=== PATIENT | female | born 1965 | race Caucasian/White ===

== ENCOUNTER 2016-12-14 15:34 | Inpatient (IN) ==
[2016-12-14] MEDS ORDERED: HYDROmorphone 2 MG/ML SYRINGE IV PRN (16:06)
[2016-12-14] MEDS ORDERED: ONDANSETRON 4 MG/2 ML VIAL IV PRN (16:06)
[2016-12-14] MEDS ORDERED: PROMETHAZINE 25 MG TABLET PO PRN (16:06)
[2016-12-14] MEDS ORDERED: VANCOMYCIN 1,000 MG in 0.9 % SODIUM CHLORIDE 250 ML IV SCH (16:15)
--- NOTE | 2016-12-14 16:18 | General Surg History&Physical ---
History of Present Illness Patient information: Note initiated : 12/14/16 at 4:17 pm Service Date, if different from initiated Date: [] Patient: Gentry Cornejo a 51 y/o F admitted on for post op infection. Chief Complaint: [] HPI: Ms. Cornejo is a 51 year old F who is status post repair of an upper abdominal incision on 03 December 2016. She had a large defect that was closed with a 10 x 15 cm mesh graft. She did well until 4 days ago when she started having pain in the incision and noted that it was reddened and that she had more drainage. When the pain became extremely severe she presented to the office where it was noted that she had severe cellulitis of the abdominal wall with some serous drainage and swelling. She is admitted for emergency CT and IV antibiotics until we can get culture results. It is not known at this time whether or not she will need reoperation. Review of Systems - Constitutional chills, fever(s), headache(s), malaise - EENT Nose, mouth and throat: headache(s), no dizziness, no vertigo - Cardiovascular no chest pain with activity, no diaphoresis, no dyspnea on exertion, no irregular heart rhythm, no palpatations, no syncope - Respiratory no cough, no dyspnea on exertion, no wheezing - Gastrointestinal abdominal pain, heartburn, nausea, vomiting, no change in bowel habits, no constipation, no diarrhea, no dyspepsia, no loose stools - Genitourinary Genitourinary: no dysuria, no flank pain, no urinary frequency, no urinary urgency - Musculoskeletal arthralgias, back pain, stiffness - Integumentary erythema, pruritus, swelling, wounds - Neurological headache(s), no abnormal gait, no confusion, no dizziness, no syncope, no vertigo - Psychiatric abnormal sleep pattern, anxiety, no confusion, no depression - Endocrine no change in body appearance, no excessive sweating - Hematologic/Lymphatic no easy bleeding, no easy bruising, no lymphadenopathy - Allergic/Immunologic no tongue swelling, no throat swelling, no uticaria, no wheezing, no lip swelling Past History Past medical history: chronic asthma Bipolar disorder Chronic back pain Past surgical history: tubal ligation Incisional hernia repair Past family history: history of colon cancer Past social history: employed Every day smoker Occasional alcohol use Denies substance abus Medications and Allergies Home Medications Medication Instructions Recorded Confirmed Type Baclofen 20 mg PO BID 05/17/16 08/08/17 History estradiol 2 mg tablet 2 mg PO QDAY 10/27/16 12/14/16 History furosemide 40 mg tablet 40 mg PO PRN PRN 10/27/16 12/14/16 History gabapentin 300 mg capsule 900 mg PO TID 10/27/16 12/14/16 History hydroxyzine HCl 25 mg tablet 25 mg PO QID PRN tab 10/27/16 12/14/16 History oxyCODONE HCL/ACETAMINOPHEN 1 tab PO Q4H PRN #60 tab 12/04/16 12/14/16 Rx [Endocet 10-325 mg Tablet] Allergies Allergy/AdvReac Type Severity Reaction Status Date / Time Iodinated Contrast- Oral and Allergy Severe Swelling Verified 12/14/16 15:04 IV Dye [Iodinated Contrast Media - IV Dye] Penicillins Allergy Hives Verified 12/14/16 15:04 Exam - General physical appearance well developed, well nourished, moderate distress, moderate pain - Eyes PERRL, normal ocular movement - ENT normal pinna, normal nares, normal mucosa, no hearing loss, no congestion, dentures - Head Head exam IM: Present: atraumatic, normocephalic - Neck no masses, no bruits, trachea midline, no lymphadectomy, no venous distension - Cardiovascular Cardiovascular exam IM: Present: normal rate and rhythm, RRR, +S1, +S2. Absent : JVD - Respiratory normal expansion, normal respiratory effort, clear to percussion, clear to auscultation - Abdomen Abdomen: Present: soft, tender, bowel sounds, distended (mmildly distended abdomen with upper midline incision with extensive cellulitis and swelling and small amount of serous drainage;; most of the alison have pulled out due to the swelling) Hernia: Present: none - Genitourinary Present: normal external genitalia - Integumentary Present: no rash, no growths, no abnormal pigmentation - Neurologic Present: normal coordination, normal sensation - Musculoskeletal Present: normal gait, normal posture - Psychiatric Present: oriented to time, oriented to person, oriented to place, speech is normal, memory intact, other (mildly anxious) Assessment and Plan (1) Cellulitis of abdominal wall Status: Acute
[2016-12-14 16:52] LABS: Mean Cell Volume 82.5 fL (80.0-100.0); Mean Corpuscular HGB Conc 34.3 g/dL (31.0-36.0); Mean Corpuscular Hemoglobin 28.3 pg (26.0-34.0); Platelet Count 357 K/mcL (140-440); RBC 4.82 M/mcL (4.00-5.20); Red Cell Distribution Width 12.9 % (11.5-14.5)
[2016-12-14 17:15] LABS: ALT/SGPT 20 U/l (0-40); Albumin 3.7 gm/dL (3.2-5.2); Alkaline Phosphatase 84 U/L (39-117); Bilirubin,Direct < 0.2 mg/dL (0.0-0.3); Blood Urea Nitrogen 10 mg/dl (6-20); Gamma Glutamyl Transpeptidase 19 U/L (5-36); Magnesium 1.8 mg/dL (1.6-2.5); Uric Acid 5.2 mg/dL (2.5-8.0)
[2016-12-14] MEDS ORDERED: VANCOMYCIN PER PHARMACY IV SCH (17:15)
[2016-12-14] MEDS: VANCOMYCIN 1,500 MG in 0.9 % SODIUM CHLORIDE 500 ML IV SCH (17:33)
[2016-12-14] MEDS: 0.9 % SODIUM CHLORIDE 1,000 ML IV SCH (17:33)
[2016-12-14 17:34] LABS: Lymphocytes % 14 % (15-49); Monocytes % (Manual) 8 % (1-12); Platelet Estimate NORMAL (NORMAL); RBC Morphology NORMAL (NORMAL); Segmented Neutrophils % 78 % (38-78)
[2016-12-14] MEDS: oxyCODONE HCL 5 MG TABLET PO PRN (19:06)
[2016-12-14] MEDS: 0.9 % SODIUM CHLORIDE 10 ML SYRINGE IV SCH (20:32)
[2016-12-14] MEDS: DOCUSATE SODIUM 100 MG CAPSULE PO SCH (20:32)
[2016-12-14] MEDS: ACETAMINOPHEN 325 MG TABLET PO PRN (23:15)
[2016-12-14] MEDS: ZOLPIDEM 5 MG TABLET PO PRN (23:47)
[2016-12-15] MEDS: oxyCODONE HCL 5 MG TABLET PO PRN ×4 (04:19→20:42)
[2016-12-15] MEDS: VANCOMYCIN 1,500 MG in 0.9 % SODIUM CHLORIDE 500 ML IV SCH ×2 (05:26→17:55)
[2016-12-15] MEDS: ACETAMINOPHEN 325 MG TABLET PO PRN (05:31)
[2016-12-15] MEDS: 0.9 % SODIUM CHLORIDE 10 ML SYRINGE IV SCH ×3 (05:41→20:42)
[2016-12-15] MEDS: 0.9 % SODIUM CHLORIDE 1,000 ML IV SCH ×3 (07:10→17:46)
[2016-12-15 08:20] LABS: Basophils # (Auto) 0.1 K/mcL (0.0-0.3); Basophils % (Auto) 0.5 % (0.0-2.0); Eosinophils # (Auto) 0.4 K/mcL (0.0-0.7); Eosinophils % (Auto) 1.7 % (0.0-7.0); Granulocytes % (Auto) 77.8 % (38.0-78.0); Lymphocytes % (Auto) 13.9 % (15.5-49.0); Mean Cell Volume 82.9 fL (80.0-100.0); Mean Corpuscular HGB Conc 33.9 g/dL (31.0-36.0); Mean Corpuscular Hemoglobin 28.1 pg (26.0-34.0); Monocytes # (Auto) 1.3 K/mcL (0.1-0.9); Monocytes % (Auto) 6.1 % (1.0-12.0); Platelet Count 304 K/mcL (140-440); RBC 4.22 M/mcL (4.00-5.20); Red Cell Distribution Width 12.6 % (11.5-14.5)
[2016-12-15] MEDS: ENOXAPARIN 40 MG/0.4 ML SYRINGE SQ SCH (08:24)
[2016-12-15] MEDS: DOCUSATE SODIUM 100 MG CAPSULE PO SCH ×2 (08:24→20:42)
[2016-12-15 08:42] LABS: ALT/SGPT 17 U/l (0-40); Albumin/Globulin Ratio 0.9 (1.0-2.3); Alkaline Phosphatase 73 U/L (39-117); Bilirubin,Direct < 0.2 mg/dL (0.0-0.3); Blood Urea Nitrogen 7 mg/dl (6-20); Gamma Glutamyl Transpeptidase 18 U/L (5-36); Magnesium 1.9 mg/dL (1.6-2.5); Uric Acid 4.4 mg/dL (2.5-8.0)
--- NOTE | 2016-12-15 11:01 | Cat Scan Report ---
CLINICAL INFORMATION: Hernia surgery roughly 10 days prior mid abdominal pain COMPARISON: Preoperative abdomen and pelvic CT - 10/19/2016 TECHNIQUE: 2.5 mm helical slices were obtained from the mid heart through the subtrochanteric regions. Following reconstruction, 2.5 mm sagittal, coronal and axial reformatted images were processed and reviewed at bone, lung and soft tissue windows. FINDINGS: Lung bases show no abnormality - no effusion. Visualized heart is grossly normal. Images through the abdomen show the noncontrasted gallbladder and bile ducts, liver, spleen, pancreas and aorta to be unremarkable. Both kidneys are normal in size, position and figuration. Three small nonobstructing stones in the calyces of left kidney, ranging up to 7 mm in the superior pole, again noted. Images should the pelvis show hysterectomy/oophorectomy changes . The urinary bladder is normal. The periumbilical hernia has been successfully reduced and there is now mesh in the periumbilical region of the anterior abdominal wall. Just deep to the mesh, in the anterior central mesenteric cavity, there is a 8.7 x 4 cm thin-walled fluid collection. Small amount of fluid projects through a small (9 mm) defect in the mesh (image 90) There is moderate amount of residual edema adjacent to the surgical incision the anterior abdominal wall - as expected. IMPRESSION: 8.7 x 4 cm fluid collection in the anterior mesenteric cavity adjacent to the surgical mesh following hernia repair. This could represent a seroma, hematoma or abscess. Consider CT-guided drainage if the patient is symptomatic. Small nonobstructing stones in the calyces of the left kidney - ranging up to 7 mm. 3.3 cm benign adenoma left adrenal gland and 2 cm benign adenoma in the right adrenal gland is stable since a 07/15/[address] Small right inguinal hernia containing mesenteric fat and the tip of the appendix - stable Interpreted and Authenticated by: Gunnar Cabrera 12/15/16
--- NOTE | 2016-12-15 12:44 | General Surgery Progress Note ---
Subjective Patient reports: feels better, pain is less, tolerating a regular diet, flatus, bowel movement, fever Narrative: Note initiated : 12/15/16 at 12:42 pm Service Date, if different from initiated Date: [] Patient: Gentry Cornejo 51 y/o F admitted on 12/14/16 for Post Op Infection/ Cellulitis of Abdominal Wall. Chief Complaint: [Patient is stable. She did have low-grade fever last night in the 99 range. Her discomfort is better. She had some serous drainage. The wound was probed and in the subcutaneous fat some purulent drainage was encountered cultures of this were taken and sent for C&S. The area of cellulitis has started to recede. Dressing changes were done and will make decision as to whether or not the wound needs to be fully open after the cultures are completed.] Objective Temp Pulse Resp BP Pulse Ox 97.6 F 80 20 99/67 94 12/15/16 12:00 12/15/16 04:00 12/15/16 12:00 12/15/16 12:00 12/15/16 12:00 - Additional Data Intake & Output - Last 24 hours: Intake & Output 12/13/16 12/14/16 12/15/16 12/16/16 05:59 05:59 05:59 05:59 Intake Total 1640 / 1640 2150 / 2150 Output Total 775 / 775 Balance 1640 / 1640 1375 / 1375 Weight 282 lb 8 oz 282 lb 8 oz - General physical appearance well developed, moderate distress, moderate pain - Eyes PERRL - ENT no congestion - Neck no venous distension - Respiratory clear to auscultation - Cardiovascular Cardiovascular exam: Present: normal rate and rhythm, RRR, +S1, +S2. Absent: JVD - Abdomen soft, tender (Abdomen is nondistended; the incision is improved but is still significantly erythematous. Modest amount of seropurulent drainage noted and cultures were taken) - Integumentary no rash, no growths, no abnormal pigmentation - Neurologic normal coordination, normal sensation - Musculoskeletal normal gait, normal posture - Psychiatric oriented to time, oriented to person, oriented to place, speech is normal, memory intact - Labs 12/15/16 07:40 12/15/16 07:40 Diabetes panel 12/14/16 12/15/16 Range/Units 16:20 07:40 Sodium 137 137 (133-145) mmol/L Potassium 3.8 4.2 (3.3-5.1) mmol/L Chloride 95 L 99 (96-108) mmol/L Carbon Dioxide 27 26 (22-30) mmol/L BUN 10 7 (6-20) mg/dl Creatinine 0.6 0.5 L (0.6-1.1) mg/dl Glucose 93 121 H (70-105) mg/dL Calcium 8.9 8.5 L (8.6-10.4) mg/dl AST 14 12 (0-37) U/l ALT 20 17 (0-40) U/l Alkaline Phosphatase 84 73 (39-117) U/L Total Protein 7.5 6.4 (5.9-8.4) gm/dL Albumin 3.7 3.0 L (3.2-5.2) gm/dL Triglycerides 138 86 (<150) mg/dl Calcium panel 12/14/16 12/15/16 Range/Units 16:20 07:40 Calcium 8.9 8.5 L (8.6-10.4) mg/dl Phosphorus 3.0 2.9 (2.7-4.5) mg/dL Albumin 3.7 3.0 L (3.2-5.2) gm/dL Pituitary panel 12/14/16 12/15/16 Range/Units 16:20 07:40 Sodium 137 137 (133-145) mmol/L Potassium 3.8 4.2 (3.3-5.1) mmol/L Chloride 95 L 99 (96-108) mmol/L Carbon Dioxide 27 26 (22-30) mmol/L BUN 10 7 (6-20) mg/dl Creatinine 0.6 0.5 L (0.6-1.1) mg/dl Glucose 93 121 H (70-105) mg/dL Calcium 8.9 8.5 L (8.6-10.4) mg/dl Adrenal panel 12/14/16 12/15/16 Range/Units 16:20 07:40 Sodium 137 137 (133-145) mmol/L Potassium 3.8 4.2 (3.3-5.1) mmol/L Chloride 95 L 99 (96-108) mmol/L Carbon Dioxide 27 26 (22-30) mmol/L BUN 10 7 (6-20) mg/dl Creatinine 0.6 0.5 L (0.6-1.1) mg/dl Glucose 93 121 H (70-105) mg/dL Calcium 8.9 8.5 L (8.6-10.4) mg/dl Total Bilirubin 0.4 0.4 (0.0-1.0) mg/dL AST 14 12 (0-37) U/l ALT 20 17 (0-40) U/l Alkaline Phosphatase 84 73 (39-117) U/L Total Protein 7.5 6.4 (5.9-8.4) gm/dL Albumin 3.7 3.0 L (3.2-5.2) gm/dL Assessment and Plan (1) Cellulitis of abdominal wall Status: Acute Assessment and plan: Cellulitis of abdominal wall with subcutaneous abscess to be further evaluated Current Visit: Yes - Time Spent With Patient Total time spent is greater than 50% in coordination of care (as documented) at patient's floor/unit and/or counseling patient:
[2016-12-15] MEDS ORDERED: ALBUTEROL SULFATE 1 PUFF INHALER IH PRN (12:55)
[2016-12-15] MEDS ORDERED: BECLOMETHASONE DIPROPIONATE 40MCG INHALER INH PRN (12:55)
[2016-12-15] MEDS ORDERED: BACLOFEN 10 MG TABLET PO PRN (15:00)
[2016-12-15] MEDS: GABAPENTIN 300 MG CAPSULE PO SCH ×2 (15:05→20:42)
[2016-12-16] MEDS: oxyCODONE HCL 5 MG TABLET PO PRN ×3 (00:36→21:56)
[2016-12-16] MEDS: 0.9 % SODIUM CHLORIDE 1,000 ML IV SCH ×3 (02:28→21:54)
[2016-12-16] MEDS: 0.9 % SODIUM CHLORIDE 10 ML SYRINGE IV SCH ×3 (05:23→22:41)
[2016-12-16] MEDS: VANCOMYCIN 1,500 MG in 0.9 % SODIUM CHLORIDE 500 ML IV SCH ×2 (05:24→17:55)
[2016-12-16 07:09] LABS: Basophils # (Auto) 0.1 K/mcL (0.0-0.3); Basophils % (Auto) 0.9 % (0.0-2.0); Eosinophils # (Auto) 0.4 K/mcL (0.0-0.7); Eosinophils % (Auto) 2.5 % (0.0-7.0); Granulocytes % (Auto) 70.8 % (38.0-78.0); Lymphocytes # (Auto) 2.6 K/mcL (1.5-4.8); Lymphocytes % (Auto) 17.6 % (15.5-49.0); Mean Cell Volume 83.1 fL (80.0-100.0); Mean Corpuscular HGB Conc 33.8 g/dL (31.0-36.0); Mean Corpuscular Hemoglobin 28.1 pg (26.0-34.0); Monocytes # (Auto) 1.2 K/mcL (0.1-0.9); Monocytes % (Auto) 8.2 % (1.0-12.0); Platelet Count 284 K/mcL (140-440); RBC 3.76 M/mcL (4.00-5.20); Red Cell Distribution Width 12.6 % (11.5-14.5)
[2016-12-16 07:18] LABS: ALT/SGPT 20 U/l (0-40); Albumin/Globulin Ratio 0.9 (1.0-2.3); Alkaline Phosphatase 76 U/L (39-117); Bilirubin,Direct < 0.2 mg/dL (0.0-0.3); Blood Urea Nitrogen 7 mg/dl (6-20); Gamma Glutamyl Transpeptidase 17 U/L (5-36); Magnesium 1.9 mg/dL (1.6-2.5); Uric Acid 3.9 mg/dL (2.5-8.0)
[2016-12-16] MEDS: GABAPENTIN 300 MG CAPSULE PO SCH ×3 (08:43→20:51)
[2016-12-16] MEDS: DOCUSATE SODIUM 100 MG CAPSULE PO SCH ×2 (08:44→20:51)
[2016-12-16] MEDS: ESTRADIOL 1 MG TABLET PO SCH (08:44)
[2016-12-16] MEDS: ENOXAPARIN 40 MG/0.4 ML SYRINGE SQ SCH (08:45)
--- NOTE | 2016-12-16 14:46 | General Surgery Progress Note ---
Subjective Patient reports: feels better, pain is less, afebrile Narrative: Note initiated : 12/16/16 at 2:44 pm Service Date, if different from initiated Date: [] Patient: Gentry Cornejo 51 y/o F admitted on 12/14/16 for Post Op Infection/ Cellulitis of Abdominal Wall. Chief Complaint: [Patient feels better. She has less pain with movement. There is decreased drainage in the cellulitis is beginning to regress. Cultures are growing out Staphylococcus aureus however sensitivities are not available.] Objective Temp Pulse Resp BP Pulse Ox 98.4 F 75 18 101/65 97 12/16/16 11:36 12/16/16 03:05 12/16/16 11:36 12/16/16 11:36 12/16/16 11:36 - Additional Data Intake & Output - Last 24 hours: Intake & Output 12/14/16 12/15/16 12/16/16 12/17/16 05:59 05:59 05:59 05:59 Intake Total 1640 / 1640 6100 / 6100 Output Total 2024 / 2024 350 / 350 Balance 1640 / 1640 4075 / 4075 -350 / -350 Weight 282 lb 8 oz 285 lb - General physical appearance well developed, well nourished, no distress - Eyes PERRL - ENT no congestion - Neck no venous distension - Respiratory normal respiratory effort, clear to auscultation - Cardiovascular Cardiovascular exam: Present: normal rate and rhythm, RRR, +S1, +S2. Absent: JVD - Abdomen tender (Abdomen is tender along the operative incision but the cellulitis and induration is significantly improved. Drainage is also significantly improved) - Integumentary no rash, no growths, no abnormal pigmentation - Neurologic normal coordination, normal sensation - Musculoskeletal normal gait, normal posture - Psychiatric oriented to time, oriented to person, oriented to place, speech is normal, memory intact - Labs 12/16/16 05:48 12/16/16 05:48 Diabetes panel 12/16/16 Range/Units 05:48 Sodium 139 (133-145) mmol/L Potassium 3.9 (3.3-5.1) mmol/L Chloride 101 (96-108) mmol/L Carbon Dioxide 27 (22-30) mmol/L BUN 7 (6-20) mg/dl Creatinine 0.5 L (0.6-1.1) mg/dl Glucose 95 (70-105) mg/dL Calcium 8.2 L (8.6-10.4) mg/dl AST 16 (0-37) U/l ALT 20 (0-40) U/l Alkaline Phosphatase 76 (39-117) U/L Total Protein 6.3 (5.9-8.4) gm/dL Albumin 3.0 L (3.2-5.2) gm/dL Triglycerides 74 (<150) mg/dl Calcium panel 12/16/16 Range/Units 05:48 Calcium 8.2 L (8.6-10.4) mg/dl Phosphorus 3.1 (2.7-4.5) mg/dL Albumin 3.0 L (3.2-5.2) gm/dL Pituitary panel 12/16/16 Range/Units 05:48 Sodium 139 (133-145) mmol/L Potassium 3.9 (3.3-5.1) mmol/L Chloride 101 (96-108) mmol/L Carbon Dioxide 27 (22-30) mmol/L BUN 7 (6-20) mg/dl Creatinine 0.5 L (0.6-1.1) mg/dl Glucose 95 (70-105) mg/dL Calcium 8.2 L (8.6-10.4) mg/dl Adrenal panel 12/16/16 Range/Units 05:48 Sodium 139 (133-145) mmol/L Potassium 3.9 (3.3-5.1) mmol/L Chloride 101 (96-108) mmol/L Carbon Dioxide 27 (22-30) mmol/L BUN 7 (6-20) mg/dl Creatinine 0.5 L (0.6-1.1) mg/dl Glucose 95 (70-105) mg/dL Calcium 8.2 L (8.6-10.4) mg/dl Total Bilirubin 0.3 (0.0-1.0) mg/dL AST 16 (0-37) U/l ALT 20 (0-40) U/l Alkaline Phosphatase 76 (39-117) U/L Total Protein 6.3 (5.9-8.4) gm/dL Albumin 3.0 L (3.2-5.2) gm/dL Assessment and Plan (1) Cellulitis of abdominal wall Status: Acute Assessment and plan: Cellulitis of abdominal wall with subcutaneous abscess ; clinically much improved. We will make decision about follow-up care after the sensitivities are available tomorrow. If she has MRSA will open the wound and place wound VAC and treat with long-term antibiotics. If it is MSSA will continue on antibiotics orally and allow her to go home with follow-up CT in 1 week. Current Visit: Yes - Time Spent With Patient Total time spent is greater than 50% in coordination of care (as documented) at patient's floor/unit and/or counseling patient:
[2016-12-16] MEDS: ZOLPIDEM 5 MG TABLET PO PRN (21:57)
[2016-12-17 06:01] LABS: Basophils # (Auto) 0.1 K/mcL (0.0-0.3); Basophils % (Auto) 0.8 % (0.0-2.0); Eosinophils # (Auto) 0.4 K/mcL (0.0-0.7); Eosinophils % (Auto) 3.4 % (0.0-7.0); Granulocytes % (Auto) 62.3 % (38.0-78.0); Lymphocytes # (Auto) 2.7 K/mcL (1.5-4.8); Lymphocytes % (Auto) 24.4 % (15.5-49.0); Mean Corpuscular HGB Conc 32.8 g/dL (31.0-36.0); Mean Corpuscular Hemoglobin 27.6 pg (26.0-34.0); Monocytes % (Auto) 9.1 % (1.0-12.0); Platelet Count 294 K/mcL (140-440); RBC 3.78 M/mcL (4.00-5.20); Red Cell Distribution Width 12.8 % (11.5-14.5)
[2016-12-17] MEDS: VANCOMYCIN 1,500 MG in 0.9 % SODIUM CHLORIDE 500 ML IV SCH ×2 (06:08→20:37)
[2016-12-17] MEDS: 0.9 % SODIUM CHLORIDE 10 ML SYRINGE IV SCH ×3 (06:09→20:37)
[2016-12-17 06:28] LABS: ALT/SGPT 26 U/l (0-40); Albumin/Globulin Ratio 0.9 (1.0-2.3); Alkaline Phosphatase 72 U/L (39-117); Bilirubin,Direct < 0.2 mg/dL (0.0-0.3); Blood Urea Nitrogen 6 mg/dl (6-20); Gamma Glutamyl Transpeptidase 20 U/L (5-36); Uric Acid 3.6 mg/dL (2.5-8.0)
[2016-12-17] MEDS: ESTRADIOL 1 MG TABLET PO SCH (08:41)
[2016-12-17] MEDS: GABAPENTIN 300 MG CAPSULE PO SCH ×3 (08:42→20:36)
[2016-12-17] MEDS: DOCUSATE SODIUM 100 MG CAPSULE PO SCH ×2 (08:43→20:36)
--- NOTE | 2016-12-17 12:05 | General Surgery Progress Note ---
Subjective Patient reports: feels better, pain is less, tolerating a regular diet, flatus, bowel movement, afebrile Narrative: Note initiated : 12/17/16 at 12:03 pm Service Date, if different from initiated Date: [] Patient: Gentry Cornejo 51 y/o F admitted on 12/14/16 for Post Op Infection/ Cellulitis of Abdominal Wall. Chief Complaint: [Patient is progressing nicely. She has less pain and she has been afebrile. She has less serous drainage with minimal purulence noted. The cellulitis of her abdominal wall is significantly improved. The induration around her incision is markedly reduced. Identification fluid in the bacteria from her wound shows MRSA. It is sensitive to Septra, gentamicin, vancomycin, Zyvox, doxycycline. I will try to get Zyvox tablets for 14 days and then treat her with Septra long-term for 2 weeks. If not available then she may need IV vancomycin long-term however must monitor her renal function closely.] Objective Temp Pulse Resp BP Pulse Ox 97.1 F 57 L 18 106/63 95 12/17/16 04:00 12/17/16 04:00 12/17/16 04:00 12/17/16 04:00 12/17/16 04:00 - Additional Data Intake & Output - Last 24 hours: Intake & Output 12/15/16 12/16/16 12/17/16 12/18/16 05:59 05:59 05:59 05:59 Intake Total 1640 / 1640 6100 / 6100 2560 / 2560 Output Total 2024 / 2024 1500 / 1500 Balance 1640 / 1640 4075 / 4075 1060 / 1060 Weight 282 lb 8 oz 285 lb 289 lb - General physical appearance moderate pain - Eyes PERRL - ENT no congestion - Neck no venous distension - Respiratory clear to auscultation - Cardiovascular Cardiovascular exam: Present: normal rate and rhythm, RRR, +S1, +S2. Absent: JVD - Abdomen tender (Mild tenderness around her incision otherwise her abdominal exam is benign; there is small amount of drainage which is clear and serous on her dressing) - Integumentary no rash, no growths, no abnormal pigmentation - Neurologic normal coordination, normal sensation - Musculoskeletal normal gait - Psychiatric oriented to time, oriented to person, oriented to place, speech is normal, memory intact - Labs 12/17/16 04:38 08/11/17 04:38 Diabetes panel 12/17/16 Range/Units 04:38 Sodium 141 (133-145) mmol/L Potassium 4.2 (3.3-5.1) mmol/L Chloride 104 (96-108) mmol/L Carbon Dioxide 25 (22-30) mmol/L BUN 6 (6-20) mg/dl Creatinine 0.4 L (0.6-1.1) mg/dl Glucose 93 (70-105) mg/dL Calcium 8.4 L (8.6-10.4) mg/dl AST 18 (0-37) U/l ALT 26 (0-40) U/l Alkaline Phosphatase 72 (39-117) U/L Total Protein 6.3 (5.9-8.4) gm/dL Albumin 3.0 L (3.2-5.2) gm/dL Triglycerides 70 (<150) mg/dl Calcium panel 12/17/16 Range/Units 04:38 Calcium 8.4 L (8.6-10.4) mg/dl Phosphorus 3.7 (2.7-4.5) mg/dL Albumin 3.0 L (3.2-5.2) gm/dL Pituitary panel 12/17/16 Range/Units 04:38 Sodium 141 (133-145) mmol/L Potassium 4.2 (3.3-5.1) mmol/L Chloride 104 (96-108) mmol/L Carbon Dioxide 25 (22-30) mmol/L BUN 6 (6-20) mg/dl Creatinine 0.4 L (0.6-1.1) mg/dl Glucose 93 (70-105) mg/dL Calcium 8.4 L (8.6-10.4) mg/dl Adrenal panel 12/17/16 Range/Units 04:38 Sodium 141 (133-145) mmol/L Potassium 4.2 (3.3-5.1) mmol/L Chloride 104 (96-108) mmol/L Carbon Dioxide 25 (22-30) mmol/L BUN 6 (6-20) mg/dl Creatinine 0.4 L (0.6-1.1) mg/dl Glucose 93 (70-105) mg/dL Calcium 8.4 L (8.6-10.4) mg/dl Total Bilirubin 0.2 (0.0-1.0) mg/dL AST 18 (0-37) U/l ALT 26 (0-40) U/l Alkaline Phosphatase 72 (39-117) U/L Total Protein 6.3 (5.9-8.4) gm/dL Albumin 3.0 L (3.2-5.2) gm/dL Assessment and Plan (1) Cellulitis of abdominal wall Status: Acute Assessment and plan: Cellulitis of abdominal wall with subcutaneous abscess ; clinically much improved. Delay operative therapy since she has made such a rapid response Try to get Zyvox for 2 weeks and then treat for another 2 weeks with Septra in order to salvage the mesh Current Visit: Yes - Time Spent With Patient Total time spent is greater than 50% in coordination of care (as documented) at patient's floor/unit and/or counseling patient:
[2016-12-17] MEDS: 0.9 % SODIUM CHLORIDE 1,000 ML IV SCH ×3 (12:49→22:48)
[2016-12-17] MEDS: oxyCODONE HCL 5 MG TABLET PO PRN ×2 (15:25→20:36)
[2016-12-17] MEDS: ZOLPIDEM 5 MG TABLET PO PRN (20:37)
[2016-12-18] MEDS: oxyCODONE HCL 5 MG TABLET PO PRN ×2 (03:16→07:08)
[2016-12-18] MEDS: 0.9 % SODIUM CHLORIDE 10 ML SYRINGE IV SCH (04:17)
[2016-12-18 06:18] LABS: Basophils # (Auto) 0 K/mcL (0.0-0.3); Basophils % (Auto) 0.5 % (0.0-2.0); Eosinophils # (Auto) 0.4 K/mcL (0.0-0.7); Granulocytes % (Auto) 61.4 % (38.0-78.0); Lymphocytes # (Auto) 2.3 K/mcL (1.5-4.8); Lymphocytes % (Auto) 23.9 % (15.5-49.0); Mean Cell Volume 85.2 fL (80.0-100.0); Mean Corpuscular Hemoglobin 28.1 pg (26.0-34.0); Monocytes % (Auto) 10.2 % (1.0-12.0); Platelet Count 311 K/mcL (140-440); RBC 3.88 M/mcL (4.00-5.20); Red Cell Distribution Width 13.8 % (11.5-14.5)
[2016-12-18] MEDS: ACETAMINOPHEN 325 MG TABLET PO PRN (07:09)
[2016-12-18] MEDS: ESTRADIOL 1 MG TABLET PO SCH (07:43)
[2016-12-18] MEDS: GABAPENTIN 300 MG CAPSULE PO SCH (07:43)
[2016-12-18] MEDS: DOCUSATE SODIUM 100 MG CAPSULE PO SCH (07:43)
[2016-12-18] MEDS: VANCOMYCIN 1,500 MG in 0.9 % SODIUM CHLORIDE 500 ML IV SCH (09:46)
--- NOTE | 2016-12-18 09:53 | Discharge Summary ---
Providers - Providers Patient information: Note initiated : 12/18/16 at 9:52 am Service Date, if different from initiated Date: [] Patient: Gentry Cornejo 51 y/o F admitted on 12/14/16 for Post Op Infection/ Cellulitis of Abdominal Wall. Chief Complaint: [] Date of admission: 12/14/16 Discharge date: 12/18/16 Attending physician: Cody Haji Hospitalization Hospital course: 51-year-old female who presented on 14 December with cellulitis of her abdominal wall status post incisional hernia repair. She was admitted and was noted to have low-grade fever with leukocytosis. Cultures grew out MRSA. She has been treated with vancomycin and her white count has returned to normal. She has had mostly serous drainage over the past 48 hours. The cellulitis has significantly resolved. She is now ready for discharge home. She will do dressing changes at home and will be followed up in the office weekly. CT of the abdomen will be done and 1 week to determine the status of the seroma surrounding the graft. She will be treated with Zyvox for 15 days and then switch to Cleocin for 15 days if she is showing progress. She is discharged in stable condition. Discharge diagnosis: abdominal wall infection due to MRSA Secondary discharge diagnosis: Bipolar disorder asthma h/o incisional hernia repair Reason for admission: post operative wound infection Pertinent studies/significant findings: C.T. of abdomen and pelvis Complications: none Exam Temp Pulse Resp BP Pulse Ox 98.0 F 73 16 122/81 96 12/18/16 07:08 12/18/16 03:19 12/18/16 07:08 12/18/16 07:08 12/18/16 07:08 - General physical appearance well developed, well nourished, no distress - Eyes PERRL, normal ocular movement - ENT normal pinna, normal nares, normal mucosa, no hearing loss, no congestion - Head Head exam IM: Present: atraumatic, normocephalic - Neck no masses, no bruits, trachea midline, no lymphadectomy, no venous distension - Cardiovascular Cardiovascular exam IM: Present: normal rate and rhythm - Respiratory normal expansion, normal respiratory effort, clear to percussion, clear to auscultation - Abdomen Abdomen: Present: soft, tender, bowel sounds (tender abdomen along incision with moderate cellulitis and induration ;small amount of serous fluid drainage) Hernia: Present: none - Integumentary Present: no rash, no growths, no abnormal pigmentation - Neurologic Present: normal coordination, normal sensation - Musculoskeletal Present: normal gait, normal posture - Psychiatric Present: oriented to time, oriented to person, oriented to place, speech is normal, memory intact Discharge Plan - Patient/Caregiver Discharge Instructions Discharge Summary: 51-year-old female who was 10 days status post incisional hernia repair with mesh. She presented to the office with an inflamed draining incision with severe cellulitis. She was admitted and was found to have leukocytosis and low- grade temperature elevation. The incision was partially opened on the floor and a large amount of serous drainage was obtained. Cultures grew out MRSA. She is now stable and is discharged home on Zyvox for 15 days after which she will receive Cleocin for 15 more days. The plan is to try to salvage the mesh graft. Most of the infection appears to be supra fascial. It is not known if the seroma surrounding the graft is infected. Activity: increase activity as tolerated Diet: Regular Diet Additional Instructions: Resume home diet as tolerated Increase activity as tolerated Follow up with Nora Joiner. Contact the office on Wednesday 12/20 to schedule. [phone] Return to ER for shortness of breath, unable to go to the bathroom, nausea and/ or vomiting, fever, chills, signs of infection, swelling, redness, excess bleeding Prescriptions: Linezolid [Zyvox] 600 mg PO Q12 #30 tablet oxyCODONE HCL [Roxicodone] 5 mg PO Q4HP PRN #60 tablet PRN Reason: Pain - Follow up Plan Follow up with: Cody Haji MD [Physician] - 01/03/17 8:00 am Disposition: Home, Self-Care Prognosis: Good Rehab Potential: Good I certify that the patient requires SNF services.: No Overall status at discharge: patient is not back to baseline Pending Studies Resuscitation Status Full Code Diet Regular Diet Start TueDec 17 Lunch Acetaminophen (Tylenol) 650 mg PO Q6HP PRN PRN Reason: PAIN/FEVER > 101 Last Admin: 12/18/16 07:09 Dose: 650 mg Admin: 12/15/16 05:31 Dose: 650 mg Admin: 12/14/16 23:15 Dose: 650 mg Docusate Sodium (Colace) 100 mg PO BID [facility] Last Admin: 12/18/16 07:43 Dose: 100 mg Admin: 12/17/16 20:36 Dose: 100 mg Admin: 12/17/16 08:43 Dose: Admin: 12/16/16 20:51 Dose: 100 mg Admin: 12/16/16 08:44 Dose: 100 mg Admin: 12/15/16 20:42 Dose: 100 mg Admin: 12/15/16 08:24 Dose: 100 mg Admin: 12/14/16 20:32 Dose: 100 mg Estradiol (Estrace) 2 mg PO DAILY [facility] Last Admin: 12/18/16 07:43 Dose: 2 mg Admin: 12/17/16 08:41 Dose: 2 mg Admin: 12/16/16 08:44 Dose: 2 mg Gabapentin (Neurontin) 300 mg PO TID [facility] Last Admin: 12/18/16 07:43 Dose: 300 mg Admin: 12/17/16 20:36 Dose: 300 mg Admin: 12/17/16 16:04 Dose: 300 mg Admin: 12/17/16 08:42 Dose: 300 mg Admin: 12/16/16 20:51 Dose: 300 mg Admin: 12/16/16 14:46 Dose: 300 mg Admin: 12/16/16 08:43 Dose: 300 mg Admin: 12/15/16 20:42 Dose: 300 mg Admin: 12/15/16 15:05 Dose: 300 mg Sodium Chloride (Sodium Chloride 0.9%) 1,000 mls @ 75 mls/hr IV .[id number] [facility] Last Admin: 12/17/16 22:48 Dose: Not Given Admin: 12/17/16 17:20 Dose: 75 mls/hr Admin: 12/17/16 12:49 Dose: Not Given Infusion: 12/17/16 11:14 Dose: 75 mls/hr Admin: 12/16/16 21:54 Dose: 75 mls/hr Infusion: 12/16/16 15:48 Dose: 75 mls/hr Admin: 12/16/16 10:46 Dose: Not Given Admin: 12/16/16 02:28 Dose: 75 mls/hr Infusion: 12/16/16 01:03 Dose: 75 mls/hr Admin: 12/15/16 17:46 Dose: Not Given Admin: 12/15/16 11:43 Dose: 75 mls/hr Admin: 12/15/16 07:10 Dose: Not Given Infusion: 12/15/16 06:53 Dose: 75 mls/hr Admin: 12/14/16 17:33 Dose: 75 mls/hr Vancomycin HCl 1,500 mg/ (Sodium Chloride) 500 mls @ 333.3 mls/hr IV Q12H NATALIA Last Admin: 12/18/16 09:46 Dose: 333.3 mls/hr Infusion: 12/17/16 22:08 Dose: 333.3 mls/hr Admin: 12/17/16 20:37 Dose: 333.3 mls/hr Infusion: 12/17/16 07:39 Dose: 333.3 mls/hr Admin: 12/17/16 06:08 Dose: 333.3 mls/hr Infusion: 12/16/16 19:30 Dose: 333.3 mls/hr Admin: 12/16/16 17:55 Dose: 333.3 mls/hr Infusion: 12/16/16 06:55 Dose: 333.3 mls/hr Admin: 12/16/16 05:24 Dose: 333.3 mls/hr Infusion: 12/15/16 19:26 Dose: 333.3 mls/hr Admin: 12/15/16 17:55 Dose: 333.3 mls/hr Infusion: 12/15/16 06:57 Dose: 333.3 mls/hr Admin: 12/15/16 05:26 Dose: 333.3 mls/hr Infusion: 12/14/16 19:04 Dose: 333.3 mls/hr Admin: 12/14/16 17:33 Dose: 333.3 mls/hr Ondansetron HCl (Zofran) 4 mg IV Q6HP PRN PRN Reason: Nausea And Vomiting Last Admin: 12/18/16 07:55 Dose: 4 mg Oxycodone HCl (Roxicodone) 5 mg PO Q4HP PRN PRN Reason: Pain Last Admin: 12/18/16 07:08 Dose: 5 mg Admin: 12/18/16 03:16 Dose: 5 mg Admin: 12/17/16 20:36 Dose: 5 mg Admin: 12/17/16 15:25 Dose: 5 mg Admin: 12/16/16 21:56 Dose: 5 mg Admin: 12/16/16 14:47 Dose: 5 mg Admin: 12/16/16 00:36 Dose: 5 mg Admin: 12/15/16 20:42 Dose: 5 mg Admin: 12/15/16 15:05 Dose: 5 mg Admin: 12/15/16 10:43 Dose: 5 mg Admin: 12/15/16 04:19 Dose: 5 mg Admin: 12/14/16 19:06 Dose: 5 mg Sodium Chloride (Saline Flush) 10 ml IV Q8 NATALIA Last Admin: 12/18/16 04:17 Dose: Not Given Admin: 12/17/16 20:37 Dose: Not Given Admin: 12/17/16 16:04 Dose: 10 ml Admin: 12/17/16 06:09 Dose: Not Given Admin: 12/16/16 22:41 Dose: Not Given Admin: 12/16/16 14:14 Dose: Not Given Admin: 12/16/16 05:23 Dose: Not Given Admin: 12/15/16 20:42 Dose: Not Given Admin: 12/15/16 13:41 Dose: 10 ml Admin: 12/15/16 05:41 Dose: Not Given Admin: 12/14/16 20:32 Dose: Not Given Zolpidem Tartrate (Ambien) 5 mg PO HSP PRN PRN Reason: Insomnia Last Admin: 12/17/16 20:37 Dose: 5 mg Admin: 12/16/16 21:57 Dose: 5 mg Admin: 12/14/16 23:47 Dose: 5 mg Shift Summary 12/18/16 03:03 Shift Summary by Daily Richardson Patient alert and oriented x4. Up ad naun to bathroom. Vital signs stable on room air. NS running at 75ml/hr to right AC. Receiving IV ABO. Dressing change done to abdomen as ordered. Midline abdominal incision has some redness and swelling w/moderate amount of serous drainage. PO Roxicodone and ice pack has managed pain. Patient will discharge this morning if stable and will be sent home on oral ABO. Initialized on 12/18/16 03:03 - END OF NOTE
== END 2016-12-18 12:33 | disposition home or self-care (01) | DRG 863 ==
LOC: MEDSUR → OBSVTOIN 16:15 → MEDSUR 18:16
PROVIDERS: ADMIT Family Medicine Adult Medicine; ATTEND Family Medicine Adult Medicine

== ENCOUNTER 2018-09-03 05:07 | Inpatient (IN) ==
[2018-09-03] MEDS ORDERED: IOPAMIDOL 100 ML BOTTLE IV ONE (05:08)
[2018-09-03] MEDS ORDERED: 0.9 % SODIUM CHLORIDE 1,000 ML IV SCH (05:45)
[2018-09-03] MEDS ORDERED: 0.9 % SODIUM CHLORIDE 1,000 ML IV ONE ×2 (06:03→07:22)
[2018-09-03] MEDS ORDERED: VANCOMYCIN 1,000 MG in 0.9 % SODIUM CHLORIDE 250 ML IV ONE ×2 (06:46→08:30)
[2018-09-03] MEDS ORDERED: LEVOFLOXACIN 500 MG/100 ML BAG IV ONE (06:46)
[2018-09-03 06:55] LABS: Appearance,Urine CLEAR; Bilirubin,Urine NEG (NEG); Color,Urine YELLOW; Glucose,Urine (UA) NEGATIVE (NEG); Leukocyte Esterase,Urine NEG /uL (NEG); Protein,Urine NEG (NEG); Urine Blood NEG mg/dL (<0.03); Urobilinogen,Urine NEG (NEG)
[2018-09-03 06:55] LABS: Basophils # (Auto) 0 K/mcL (0.0-0.3); Basophils % (Auto) 0.3 % (0.0-2.0); Eosinophils # (Auto) 0.3 K/mcL (0.0-0.7); Eosinophils % (Auto) 3.2 % (0.0-7.0); Granulocytes % (Auto) 67.1 % (38.0-78.0); Lymphocytes # (Auto) 2.1 K/mcL (1.5-4.8); Lymphocytes % (Auto) 21.4 % (15.5-49.0); Mean Cell Volume 83.1 fL (80.0-100.0); Mean Corpuscular HGB Conc 32.1 g/dL (31.0-36.0); Monocytes # (Auto) 0.8 K/mcL (0.1-0.9); Platelet Count 332 K/mcL (140-440); RBC 4.58 M/mcL (4.00-5.20); Red Cell Distribution Width 14.8 % (11.5-14.5)
[2018-09-03 07:06] LABS: Amphetamine Screen,Urine NONE DETECTED (NONDETECTED); Benzodiazepines Screen,Urine NONE DETECTED (NONDETECTED); Cocaine Screen,Urine NONE DETECTED (NONDETECTED); Opiate Screen,Urine NONE DETECTED (NONDETECTED); Oxycodone, Urine Screen NONE DETECTED (NONDETECTED)
[2018-09-03 07:13] LABS: ALT/SGPT 19 U/l (0-40); Albumin 3.5 gm/dL (3.2-5.2); Alkaline Phosphatase 75 U/L (39-117); Blood Urea Nitrogen 16 mg/dl (6-20)
--- NOTE | 2018-09-03 07:13 | Emergency Department Note ---
Altered Mental Status HPI - General Chief Complaint: Altered Mental Status Stated Complaint: Unresponsive Time Seen by Provider: 09/03/18 05:37 Source: family Mode of arrival: ambulatory Limitations: altered mental status - History of Present Illness HPI Narrative: 53-year-old female was found outside early this morning. Her states the last time she was seen was 2 AM when she got up. When he found her around 5 AM she would not wake up and she was very cold. Narcan did not help. Blood pressures were intermittently low with normal. No sign of trauma but she is complaining of difficulty with her belly status post hernia impair. Her wound site is draining some clear liquid. All this information from EMS and her , I cannot get the patient to wake up and talk to me-she is snoring loudly - Related Data Home Medications Medication Instructions Recorded Confirmed estradiol 2 mg tablet 2 mg PO QDAY 10/27/16 09/03/18 furosemide 40 mg tablet 40 mg PO PRN PRN 10/27/16 09/03/18 gabapentin 300 mg capsule 300 mg PO TID 10/27/16 09/03/18 hydroxyzine HCl 25 mg tablet 25 mg PO QID PRN tab 10/27/16 09/03/18 Albuterol Sulfate [Proair Hfa] 8.5 gm IH PRN PRN 12/14/16 09/03/18 Beclomethasone Dipropionate [Qvar 80 mcg INH PRN PRN 12/14/16 09/03/18 40] Previous Rx's Medication Instructions Recorded traMADol [Ultram] 50 - 100 mg PO Q4-6HP PRN #20 tab 11/14/17 Methocarbamol [Robaxin-750] 750 mg PO QIDP PRN #60 tab 01/05/18 Tamsulosin [Flomax] 0.4 mg PO HS #30 cap 05/16/18 HYDROcodone/ACETAMINOPHEN [[place] 1 each PO Q6H PRN #10 tab 08/01/18 5-325 Tablet] Ondansetron [Zofran ODT] 4 mg SL Q4-6HP PRN #10 tab 08/01/18 Allergies Allergy/AdvReac Type Severity Reaction Status Date / Time Iodinated Contrast- Oral and Allergy Severe Swelling Verified 07/28/18 19:45 IV Dye [Iodinated Contrast Media - IV Dye] shellfish derived Allergy Severe Swelling Verified 07/28/18 19:45 of Lip/Tongue/Throat Penicillins Allergy Intermediate Hives Verified 07/28/18 19:45 [place] AdvReac Intermediate Hives Verified 07/28/18 19:45 Review of Systems All systems ED: reviewed and negative except as stated. Past Medical History - Past Medical History [facility] Narrative: Family History (Last Reviewed 05/30/17 @ 09:22 by Elsy Che CMA) Grandmother Malignant tumor of colon Medical History (Last Updated 05/16/18 @ 08:43 by Dirk Richardson DO) Infected hernioplasty mesh (Chronic) Post traumatic stress disorder (PTSD) (Chronic) Obesity, morbid, BMI 40.0-49.9 (Chronic) 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) Lumbar radiculopathy (Chronic) Acute abdominal pain (Chronic) Hormone replacement therapy (Chronic) Nausea (Chronic) Lower extremity edema (Chronic) Chronic back pain (Chronic) Neck pain (Chronic) Shoulder joint pain (Chronic) Asthma (Chronic) Allergic rhinitis (Chronic) Supraventricular tachycardia (Resolved) Insomnia (Chronic) Chronic depression (Chronic) Adjustment disorder (Chronic) Tobacco dependence syndrome (Chronic) Chronic anxiety (Chronic) Bipolar disorder (Chronic) Major depression, single episode (Chronic) Onychomycosis (Chronic) Chronic bronchitis with acute exacerbation (Resolved) Sciatica (Chronic) Hepatomegaly (Chronic) Umbilical hernia (Chronic) Alteration in bowel elimination: incontinence (Chronic) Incontinence of urine in female (Chronic) History of hysterectomy (Acute) Abdominal pain (Resolved) Abdominal pain (Resolved) Abdominal wall seroma (Resolved) Acute bronchitis (Resolved) Cellulitis (Resolved) Cellulitis of abdominal wall (Resolved) Incisional hernia of anterior abdominal wall without obstruction or gangrene (Resolved) Ingrowing nail (Resolved) Injury of knee, left (Resolved) Knee pain, acute (Resolved) Malaise (Resolved) Pelvic mass in female (Resolved) Strain of neck muscle (Resolved) Past Surgical History (Last Updated 05/16/18 @ 07:56 by Dirk Richardson DO) History of incisional hernia repair (Acute) History of tubal ligation (Chronic ~1985) Source: old records reviewed, obtained from family Medical history: Reports: cancer, hypertension, obesity, other Psychiatric history: Reports: anxiety, depression ADMISSION DISCHARGE RN history: Reports: non-contributory Surgical history ED: Reports: herniorrhaphy, hysterectomy, other - Social History smoking status: Current every day smoker Alcohol use: Reports: None Drug use: Reports: none Physical Exam Overweight female unresponsive. She is snoring loudly and will not awaken to sternal rub. Conjunctive are clear sclerae white anicteric. Pupils are not very reactive/sluggish but symmetric. No nasal discharge or congestion. Oropharynx with dry buccal mucosa. Neck is supple without lymphadenopathy or t hyromegaly. Heart is regular rate and rhythm no murmur appreciated. Lungs with coarse sounds bilaterally. Abdomen is soft but distended in the middle where she has a large area of erythematous skin with inflammation from the adhesive from the bandages. In the center near the umbilicus she has a draining wound; clear to yellow drainage which is cultured. Tender. No pedal edema. +2 radial pulse. They tried to put in a nasal airway to make sure this was stable for CT scan and when they did this she woke up. She was and answering questions but nonsensically and and appropriately. She was confused and somnolent and then went back to sleep Limitations: altered mental status Course Vital Signs Temperature 96.3 F L 09/03/18 05:09 Pulse Rate 69 09/03/18 05:09 Respiratory Rate 20 09/03/18 05:09 Blood Pressure 130/106 09/03/18 05:09 Pulse Oximetry (%) 98 09/03/18 05:09 Temperature 96.6 F L 09/03/18 07:59 Pulse Rate 71 09/03/18 07:59 Respiratory Rate 12 09/03/18 07:59 Blood Pressure 107/77 09/03/18 07:47 Pulse Oximetry (%) 96 09/03/18 07:59 Altered Mental Status - Medical Records Medical records reviewed: Yes I reviewed the patient's medical records. I reviewed the medical record and it appears that the patient was initially taken care of by Dr. Ryan Haji back in November 2016 when she had her incisional hernia repaired by him. It subsequently was infected and cared for by Dr. Dillard, locum surgeon. - Lab Data Lab results reviewed: Yes I reviewed the patient's lab results. Result diagrams: 09/03/18 06:00 09/03/18 06:00 Lab Results 04/28/19 04/28/19 04/28/19 Range/Units 05:46 05:46 06:00 WBC (4.5-11.0) K/mcL RBC (4.00-5.20) M/mcL Hgb (12.0-15.0) g/dL Hct (36.0-48.0) % MCV (80.0-100.0) fL MCH (26.0-34.0) pg MCHC (31.0-36.0) g/dL RDW (11.5-14.5) % Plt Count (140-440) K/mcL MPV (7.4-10.4) fL Gran % (38.0-78.0) % Lymph % (Auto) (15.5-49.0) % [place] % (Auto) (1.0-12.0) % Eos % (Auto) (0.0-7.0) % Baso % (Auto) (0.0-2.0) % Gran # (1.8-8.0) K/mcL Lymph # (Auto) (1.5-4.8) K/mcL [place] # (Auto) (0.1-0.9) K/mcL Eos # (Auto) (0.0-0.7) K/mcL Baso # (Auto) (0.0-0.3) K/mcL VBG Lactic Acid (0.5-2.0) mmol/L Sodium (133-145) mmol/L Potassium (3.3-5.1) mmol/L Chloride (96-108) mmol/L Carbon Dioxide (22-30) mmol/L Anion Gap (8-16) BUN (6-20) mg/dl Creatinine (0.6-1.1) mg/dl GFR Calculation Glucose (70-105) mg/dL Calcium (8.6-10.4) mg/dl Total Bilirubin (0.0-1.0) mg/dL AST (0-37) U/l ALT (0-40) U/l Alkaline Phosphatase (39-117) U/L Total Creatine Kinase (24-170) IU/L CK-MB (CK-2) (0-2.9) ng/ml Troponin T (0-0.03) ng/ml Total Protein (5.9-8.4) gm/dL Albumin (3.2-5.2) gm/dL Globulin (2.2-3.7) gm/dL Albumin/Globulin Ratio (1.0-2.3) Amylase (28-100) U/L Lipase (7-60) U/L Urine Color Yellow Urine Appearance Clear Urine pH 5.0 (5.0-9.0) Ur Specific [place] 1.020 (1.000-1.035) Urine Protein Neg (NEG) mg/dL Urine Glucose (UA) Negative (NEG) mg/dL Urine Ketones Neg (NEG) mg/dL Urine Occult Blood Neg (<0.03) mg/dL Urine Nitrate Neg (NEG) Urine Bilirubin Neg (NEG) mg/dL Urine Urobilinogen Neg (NEG) mg/dL Ur Leukocyte Esterase Neg (NEG) /uL Ur Culture Indicated? No Urine Opiates Screen None detected (NONDETECTED) Ur Oxycodone Screen None detected (NONDETECTED) Urine Methadone Screen None detected (NONDETECTED) Ur Barbiturates Screen None detected (NONDETECTED) Ur Phencyclidine Scrn None detected (NONDETECTED) Ur Amphetamines Screen None detected (NONDETECTED) U Benzodiazepines Scrn None detected (NONDETECTED) Urine Cocaine Screen None detected (NONDETECTED) U Marijuana (THC) Screen Suspect positive A (NONDETECTED) Ethyl Alcohol < 0.010 (<0.010) gm/dl 09/03/18 09/03/18 09/03/18 Range/Units 06:00 06:00 06:00 WBC 9.9 (4.5-11.0) K/mcL RBC 4.58 (4.00-5.20) M/mcL Hgb 12.2 (12.0-15.0) g/dL Hct 38.1 (36.0-48.0) % MCV 83.1 (80.0-100.0) fL MCH 26.7 (26.0-34.0) pg MCHC 32.1 (31.0-36.0) g/dL RDW 14.8 H (11.5-14.5) % Plt Count 332 (140-440) K/mcL MPV 8.0 (7.4-10.4) fL Gran % 67.1 (38.0-78.0) % Lymph % (Auto) 21.4 (15.5-49.0) % [place] % (Auto) 8.0 (1.0-12.0) % Eos % (Auto) 3.2 (0.0-7.0) % Baso % (Auto) 0.3 (0.0-2.0) % Gran # 6.6 (1.8-8.0) K/mcL Lymph # (Auto) 2.1 (1.5-4.8) K/mcL [place] # (Auto) 0.8 (0.1-0.9) K/mcL Eos # (Auto) 0.3 (0.0-0.7) K/mcL Baso # (Auto) 0 (0.0-0.3) K/mcL VBG Lactic Acid 0.9 (0.5-2.0) mmol/L Sodium 142 (133-145) mmol/L Potassium 3.4 (3.3-5.1) mmol/L Chloride 106 (96-108) mmol/L Carbon Dioxide 23 (22-30) mmol/L Anion Gap 13.0 (8-16) BUN 16 (6-20) mg/dl Creatinine 0.8 (0.6-1.1) mg/dl GFR Calculation 84 Glucose 104 (70-105) mg/dL Calcium 8.2 L (8.6-10.4) mg/dl Total Bilirubin < 0.2 (0.0-1.0) mg/dL AST 20 (0-37) U/l ALT 19 (0-40) U/l Alkaline Phosphatase 75 (39-117) U/L Total Creatine Kinase (24-170) IU/L CK-MB (CK-2) (0-2.9) ng/ml Troponin T (0-0.03) ng/ml Total Protein 6.9 (5.9-8.4) gm/dL Albumin 3.5 (3.2-5.2) gm/dL Globulin 3.4 (2.2-3.7) gm/dL Albumin/Globulin Ratio 1.0 (1.0-2.3) Amylase (28-100) U/L Lipase (7-60) U/L Urine Color Urine Appearance Urine pH (5.0-9.0) Ur Specific [place] (1.000-1.035) Urine Protein (NEG) mg/dL Urine Glucose (UA) (NEG) mg/dL Urine Ketones (NEG) mg/dL Urine Occult Blood (<0.03) mg/dL Urine Nitrate (NEG) Urine Bilirubin (NEG) mg/dL Urine Urobilinogen (NEG) mg/dL Ur Leukocyte Esterase (NEG) /uL Ur Culture Indicated? Urine Opiates Screen (NONDETECTED) Ur Oxycodone Screen (NONDETECTED) Urine Methadone Screen (NONDETECTED) Ur Barbiturates Screen (NONDETECTED) Ur Phencyclidine Scrn (NONDETECTED) Ur Amphetamines Screen (NONDETECTED) U Benzodiazepines Scrn (NONDETECTED) Urine Cocaine Screen (NONDETECTED) U Marijuana (THC) Screen (NONDETECTED) Ethyl Alcohol (<0.010) gm/dl 09/03/18 09/03/18 09/03/18 Range/Units 06:00 06:00 07:10 WBC (4.5-11.0) K/mcL RBC (4.00-5.20) M/mcL Hgb (12.0-15.0) g/dL Hct (36.0-48.0) % MCV (80.0-100.0) fL MCH (26.0-34.0) pg MCHC (31.0-36.0) g/dL RDW (11.5-14.5) % Plt Count (140-440) K/mcL MPV (7.4-10.4) fL Gran % (38.0-78.0) % Lymph % (Auto) (15.5-49.0) % [place] % (Auto) (1.0-12.0) % Eos % (Auto) (0.0-7.0) % Baso % (Auto) (0.0-2.0) % Gran # (1.8-8.0) K/mcL Lymph # (Auto) (1.5-4.8) K/mcL [place] # (Auto) (0.1-0.9) K/mcL Eos # (Auto) (0.0-0.7) K/mcL Baso # (Auto) (0.0-0.3) K/mcL VBG Lactic Acid (0.5-2.0) mmol/L Sodium (133-145) mmol/L Potassium (3.3-5.1) mmol/L Chloride (96-108) mmol/L Carbon Dioxide (22-30) mmol/L Anion Gap (8-16) BUN (6-20) mg/dl Creatinine (0.6-1.1) mg/dl GFR Calculation Glucose (70-105) mg/dL Calcium (8.6-10.4) mg/dl Total Bilirubin (0.0-1.0) mg/dL AST (0-37) U/l ALT (0-40) U/l Alkaline Phosphatase (39-117) U/L Total Creatine Kinase 260 H (24-170) IU/L CK-MB (CK-2) 6.7 H (0-2.9) ng/ml Troponin T < 0.01 (0-0.03) ng/ml Total Protein (5.9-8.4) gm/dL Albumin (3.2-5.2) gm/dL Globulin (2.2-3.7) gm/dL Albumin/Globulin Ratio (1.0-2.3) Amylase 24 L (28-100) U/L Lipase 18 (7-60) U/L Urine Color Urine Appearance Urine pH (5.0-9.0) Ur Specific [place] (1.000-1.035) Urine Protein (NEG) mg/dL Urine Glucose (UA) (NEG) mg/dL Urine Ketones (NEG) mg/dL Urine Occult Blood (<0.03) mg/dL Urine Nitrate (NEG) Urine Bilirubin (NEG) mg/dL Urine Urobilinogen (NEG) mg/dL Ur Leukocyte Esterase (NEG) /uL Ur Culture Indicated? Urine Opiates Screen (NONDETECTED) Ur Oxycodone Screen (NONDETECTED) Urine Methadone Screen (NONDETECTED) Ur Barbiturates Screen (NONDETECTED) Ur Phencyclidine Scrn (NONDETECTED) Ur Amphetamines Screen (NONDETECTED) U Benzodiazepines Scrn (NONDETECTED) Urine Cocaine Screen (NONDETECTED) U Marijuana (THC) Screen (NONDETECTED) Ethyl Alcohol (<0.010) gm/dl - Radiology Data Radiology results reviewed: Yes I reviewed the patient's radiology results. CT scan of the head shows no acute pathology CT scan chest abdomen pelvis shows umbilical supraumbilical ventral abscess with gas-forming organisms. Large left adrenal cortical adenoma. Suspicion of possible acute pancreatitis Critical Care Time Critical Care Time: Yes Total Critical Care Time: 45 Attestation: 45 minutes of critical care time which includes serial exams, getting history from multiple sources as patient had altered mental status, reviewing studies coordinating care and document. I was immediately available to patient the entire time Disposition Pt seen by DAT INSTRUCTOR/PA only: No Clinical Impression: Altered mental status Qualifiers: Altered mental status type: somnolence Qualified Code(s): R40.0 - Somnolence Infected prosthetic mesh of abdominal wall Qualifiers: Encounter type: initial encounter Qualified Code(s): T85.79XA - Infection and inflammatory reaction due to other internal prosthetic devices, implants and grafts, initial encounter Sepsis Qualifiers: Sepsis type: sepsis due to unspecified organism Qualified Code(s): A41.9 - Sepsis, unspecified organism Summary: After initial evaluation cultures labs are done, imaging studies ordered. Start Levaquin/vancomycin in case this is pneumonia or sepsis; this could cover infected mesh as well. IV fluids are started CT scan does show concern for abscess umbilical with gas-forming organisms-also possible pancreatitis but lipase/amylase are normal. CT head is negative At this point it does appear that her situation is most consistent with sepsis from infected mesh; abscess is seen on CT. I did contact Dr. Joe Collado, [facility] surgeon who agreed to come see the patient. Continued IV fluid. Patient will be checked out to Dr. abdul at shift change for final disposition after surgery consults. Disposition: Xfer As Inpt ([facility]) Condition: Critical Referrals: Nora Joiner, [employer] [Primary Care Provider] -
[2018-09-03] MEDS ORDERED: diphenhydrAMINE 50 MG/ML VIAL IV ONE (07:24)
[2018-09-03 07:53] LABS: Creatine Kinase MB 6.7 ng/ml (0-2.9)
[2018-09-03] MEDS ORDERED: LACTATED RINGERS 1,000 ML IV ONE ×2 (08:05→08:09)
[2018-09-03 08:11] LABS: Amylase 24 U/L (28-100); Lipase 18 U/L (7-60)
--- NOTE | 2018-09-03 09:49 | Cat Scan Report ---
History: Unresponsive TECHNIQUE: The brain was imaged without contrast at 2.5 mm intervals. The radiation exposure was limited using dose reduction technology. FINDINGS: The brain appears normal without evidence of hemorrhage, infarct or edema, mass effect or degenerative change. The ventricles and cisterns are normal. There is no abnormal extra-axial fluid collection. Bone windows show no skull lesion. There is fluid in a few mastoid air cells inferiorly on both sides, left greater than right. The fluid is a new finding since 01/05/18. There has been no other significant change. IMPRESSION: Normal brain Very mild bilateral mastoiditis Interpreted and Authenticated by: Stepan Ernst 09/03/18
--- NOTE | 2018-09-03 10:11 | Cat Scan Report ---
History: Pus draining from an anterior abdominal wall abscess, unresponsive TECHNIQUE: The patient was imaged following intravenous but no oral contrast scanning from the thoracic inlet through the symphysis pubis. Sagittal and coronal reformats were created along with MIPS images of the chest. The radiation exposure was limited using dose reduction technology. FINDINGS: CHEST: Lung volumes are relatively small due to suboptimal inspiration. There are subtle groundglass alveolar opacities posteriorly in both lungs. This is probably dependent atelectasis and less likely an inflammatory reaction or hypersensitivity reaction. Arising from the pleura in the superior aspect of the left major fissure there is a noncalcified 5 mm nodule. This probably focal scar. There is no consolidating infiltrate, suspicious mass or pleural effusion. The heart is mildly enlarged. There are small reactive lymph nodes in the mediastinum. Central pulmonary arteries are normal without evidence of emboli. Aorta is normal in caliber. Abdomen and pelvis: Liver is normal in size but there is moderate generalized fatty infiltration. There is no evidence of a liver mass. The gallbladder is normal with no stones or thickening of the wall. There is mild inflammation of the fat around the second portion the duodenum and head of the pancreas. There Is no evidence of an abscess or mass in this region. The neck, body and tail of the pancreas are normal. Pancreatic duct is nondilated. These inflammatory changes are new since the prior CT done on 05/16/18. The spleen is normal in size and homogeneous. There is a well-circumscribed 3.0 x 3.3 cm mass in the left adrenal and there is a 1.2 x 1.6 cm mass in the right adrenal. The mass in left adrenal has a density of 33 Hounsfield units. These have remained stable since 05/16/18. In the central portion of the right kidney there is a 1 mm nonobstructing stone. The kidneys are otherwise normal and there is no hydronephrosis. On the prior CT scan there were several small calculi in the left kidney and a stone in the proximal left ureter causing mild hydronephrosis. The hydronephrosis and left side ureteral stones are no longer present. The urinary bladder is decompressed by Thomas catheter and there are no stones within the lumen. Uterus and ovaries are surgically absent. There are multiple noninflamed diverticula in the sigmoid colon. The appendix is noninflamed. The small bowel pattern is normal. Patient has a midline anterior abdominal wall abscess near the level of the umbilicus. It contains gas and has a thickened wall. It Extends to the peritoneum but not into the peritoneum. It measures 4.2 x 7.0 cm in transverse dimension and 6.5 cm and length. This has not changed significantly since May. No intra-abdominal abscess has developed and there is no abdominal adenopathy or ascites. There is disc space narrowing and arthritis at L3-4 and L4-5. Patient has mild spinal canal stenosis at L4-5. IMPRESSION: Stable abscess in the anterior abdominal wall near the level of the umbilicus. Mild inflammation of the duodenum and head of the pancreas. This may be due to peptic ulcer disease, duodenitis or mild pancreatitis. Stable bilateral adrenal nodules. These are more likely myelolipoma rather than metastasis Moderate fatty infiltration of the liver Diverticulosis Mild cardiomegaly Resolution of previously seen left-sided kidney stones and left-sided hydronephrosis Interpreted and Authenticated by: Stepan Ernst 09/03/18
--- NOTE | 2018-09-03 10:18 | General Surgery Progress Note ---
Surgical - Auxillary Note - Subjective Patient Information: Note initiated : 09/03/18 at 10:08 am Service Date, if different from initiated Date: [] Patient: Gentry Cornejo 53 y/o F admitted on for Unresponsive. Chief Complaint: infected abdominal wall hernioplasty mesh with abscess. Preoperative note: Preoperative diagnosis: Infected abdominal wall hernioplasty mesh with abscess. Procedure: Incision and drainage of abscess, excision of mesh, debridement of all nonviable tissue, possible negative pressure wound therapy device placement. Surgeon: Joe Collado MD, FACS antibiotics: Patient was given IV antibiotics in the emergency department. Consent: The patient is septic and confused, although she is able to answer questions appropriately. She frequently repeats herself. I therefore gave consent for the patient's who is in the room at her side. I discussed the risks, benefits, alternatives and complications of the above-mentioned procedure to include but not limited to bleeding, hematoma, seroma, infection, need to leave the wound open, requirement to resect the mesh, development of another abscess, injury to bowel, injury to other intra-abdominal organs, need for more procedures, need to place biodegradable mesh, leaving the operating room with a known abdominal hernia, blood clots in the legs, blood clots in the lungs, aspiration, pneumonia, heart attack, stroke and . The benefit will be that the infected mesh will be removed. . There is no alternative to this procedure, the mesh is infected and needs to be removed. The patient and her agree to the procedure.
--- NOTE | 2018-09-03 10:25 | General Surg History&Physical ---
History of Present Illness Patient information: Note initiated : 09/03/18 at 10:20 am Service Date, if different from initiated Date: [] Patient: Gentry Cornejo a 53 y/o F admitted on for Unresponsive. Chief Complaint: abscess of the anterior abdominal wall, chronic Chief complaint: abscess of the anterior abdominal wall, chronic HPI: Ms. Cornejo is a 53 year old F who was found sitting in a lawn chair on her front porch by family member this morning. It is unclear exactly how long she was out there, but it appears she went outside, around 2 in the morning and was found around 5 in the morning. When she was found she was unresponsive and was immediately brought to the emergency department. Again, the entire history from the patient and she is somewhat confused, meaning that she repeats herself frequently. Her answers seem appropriate. She gives a good history, but she seems to forget that she answer questions. The patient states that she was feeling very hot at approximately 2:00 in the morning and 1 outside to sit on the porch and noticed a lot of sewing. She recalls. She states that she had a ventral hernia repaired sometime ago and has had problems since that time. She was in the hospital relatively recently, she had an incision and drainage performed with a drain placement. She has had a draining sinus from this area with purulent output that time. She has been on chronic Bactrim since that time. She states that she does occasionally have fever and chills. She has felt very weak and tired over the past month. States that a surgeon in [place], [place] was planning to remove this mesh at some point in the future. She denies any changes to her bowel habits. No diarrhea or constipation. No bright red blood per rectum or dark black tar colored stool. No changes to her urinary habits. Patient is morbidly obese but states that she has lost well over 100 pounds and at one point weighed 400 pounds. Denies any history of diabetes, myocardial infarction or stroke. Denies any pulmonary issues. She does take gabapentin daily for chronic pain. She also smokes daily. She states that she is allergic to penicillin and another drug. She was not able to give us a list of her medications, but we are attempting to contact her pharmacy, which is a [facility] here in town. Review of Systems - Constitutional chills, daytime sleepiness, fatigue, fever(s), lethargy, malaise, snoring, weakness, no anorexia, no frequent falls, no headache(s), no night sweats - EENT Nose, mouth and throat: other (no changes to her vision, no changes to her hearing, no difficulties with nasal congestion, or epistaxis) - Cardiovascular no chest pain, no dyspnea, no edema, no irregular heart rhythm, no radiating jaw, neck or arm pain, no leg edema, no leg ulcers, no palpatations, no pedal edema - Respiratory snoring, no cough, no dyspnea, no hemoptysis, no wheezing - Gastrointestinal dyspepsia, heartburn, no belching, no bloating, no change in bowel habits, no change in stool character, no coffee ground emesis, no constipation, no diarrhea, no fecal incontinence, no hematemesis, no hematochezia, no loose stools, no melena, no nausea, no vomiting - Genitourinary Genitourinary: other (no changes to her urinary habits) Past History Past medical history: 1) patient has a known history of chronic pain for which he takes gabapentin. 2) morbid obesity. 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 2) Incision and drainage of anterior abdominal wall abscess involving the mesh Past family history: 1) Father was an alcoholic and from complications. 2) Mother was morbidly obese and from coronary disease. 3) States she had a sister who is morbidly obese and from coronary disease. 4) she has a son and a daughter who are both healthy Past social history: 1). Tobacco: Patient smokes every day and has for many years. Counseled that she needs to stop this and I , explained to her that is essential that she stop smoking as she has very poor blood flow to the area of infection in the tobacco makes it worse. 2). EtOH: Denies. 3). She states that she occasionally smokes recreational marijuana and did smoke some yesterday. Medications and Allergies Home Medications Medication Instructions Recorded Confirmed Type estradiol 2 mg tablet 2 mg PO QDAY 10/27/16 09/03/18 History furosemide 40 mg tablet 40 mg PO PRN PRN 10/27/16 09/03/18 History gabapentin 300 mg capsule 300 mg PO TID 10/27/16 09/03/18 History hydroxyzine HCl 25 mg tablet 25 mg PO QID PRN tab 10/27/16 09/03/18 History Albuterol Sulfate [Proair Hfa] 8.5 gm IH PRN PRN 12/14/16 09/03/18 History Beclomethasone Dipropionate [Qvar 80 mcg INH PRN PRN 12/14/16 09/03/18 History 40] traMADol [Ultram] 50 - 100 mg PO Q4-6HP PRN #20 tab 11/14/17 09/03/18 Rx Methocarbamol [Robaxin-750] 750 mg PO QIDP PRN #60 tab 01/05/18 09/03/18 Rx Tamsulosin [Flomax] 0.4 mg PO HS #30 cap 05/16/18 09/03/18 Rx HYDROcodone/ACETAMINOPHEN [[place] 1 each PO Q6H PRN #10 tab 08/01/18 09/03/18 Rx 5-325 Tablet] Ondansetron [Zofran ODT] 4 mg SL Q4-6HP PRN #10 tab 08/01/18 09/03/18 Rx Allergies Allergy/AdvReac Type Severity Reaction Status Date / Time Iodinated Contrast- Oral and Allergy Severe Swelling Verified 07/28/18 19:45 IV Dye [Iodinated Contrast Media - IV Dye] shellfish derived Allergy Severe Swelling Verified 07/28/18 19:45 of Lip/Tongue/Throat Penicillins Allergy Intermediate Hives Verified 07/28/18 19:45 [place] AdvReac Intermediate Hives Verified 07/28/18 19:45 Exam Temp Pulse Resp BP Pulse Ox 96.6 F L 71 12 107/77 96 09/03/18 07:59 09/03/18 07:59 09/03/18 07:59 09/03/18 07:47 09/03/18 07:59 - General physical appearance obese, other (patient does not appear to be in distress or in pain, but she would fall asleep very quickly and repeatedly answers to questions frequently because she has forgotten that she answer them. She is aware that she is doing this.) - Eyes PERRL, other (. Non-icteric sclera) - ENT normal pinna, normal nares, normal mucosa, no hearing loss, no congestion - Head Head exam IM: Present: atraumatic, normal inspection, normocephalic - Neck trachea midline, no venous distension - Cardiovascular Cardiovascular exam IM: Present: normal rate and rhythm. Absent: JVD - Respiratory normal expansion, normal respiratory effort - Abdomen Abdomen: Present: soft, tender (tender around the area of drainage where the patient clearly has an abscess that is draining and has been draining for an extended period time, she can see where she has changed the dressing 4 months, and there is redness over an area greater than 10 cm in diameter), bowel sounds, surgical scars (, poorly healed, radial scar near the patient's umbilicus with redness as described previously and regulated drainage) - Integumentary Present: other (. Patient has an area of redness and tenderness of the anterior abdominal wall around the area of her umbilicus and a radial scar with an opening that has purulent drainage) - Neurologic Present: other (. Patient appears to be oriented and can answer all questions appropriately, but then she will answer the question repeatedly and I'm not sure if it is from pain medication or from sepsis, but I had a family member signed her consent. She absolutely consents to the procedure and wants the mesh removed) - Musculoskeletal Present: other (. Unable to evaluate) - Psychiatric Present: oriented to time, oriented to person, oriented to place, speech is normal, other (. She is oriented to person, place, time and situation. She does repeatedly answers questions, so she seems somewhat confused) Results - Results CT scan - abdomen: image reviewed (Abscess of the anterior abdominal wall mesh) Assessment and Plan (1) Altered mental status This should improve with drainage of the abscess and removal of the infected mesh as it is likely cause secondary to sepsis reaction Status: Acute Qualifiers: Altered mental status type: somnolence Qualified Code(s): R40.0 - Somnolence (2) Infected prosthetic mesh of abdominal wall 1) emergent incision and drainage of the abscess, sharp debridement of all nonviable tissue, removal of infected mesh, placement of negative pressure wound therapy device (wound VAC). Status: Acute Qualifiers: Encounter type: initial encounter Qualified Code(s): T85.79XA - Infection and inflammatory reaction due to other internal prosthetic devices, implants and grafts, initial encounter
[2018-09-03] MEDS ORDERED: ePHEDrine 50 MG/ML AMPUL IV ONE (10:45)
[2018-09-03] MEDS ORDERED: HYDROmorphone 2 MG/ML VIAL IV ONE (10:45)
[2018-09-03] MEDS ORDERED: MIDAZOLAM 2 MG/2 ML VIAL IV ONE (10:45)
[2018-09-03] MEDS ORDERED: LIDOCAINE HCL/PF 100 MG/5 ML SYRINGE IV ONE (10:45)
[2018-09-03] MEDS ORDERED: GLYCOPYRROLATE 0.2 MG/ML VIAL IV ONE (10:45)
[2018-09-03] MEDS ORDERED: PHENYLEPHRINE 10 MG/ML VIAL IV ONE (10:45)
[2018-09-03] MEDS ORDERED: KETAMINE 100 MG/ML ML IV ONE (10:45)
[2018-09-03] MEDS ORDERED: SUGAMMADEX SODIUM 200 MG/2 ML VIAL IV ONE (10:45)
[2018-09-03] MEDS ORDERED: ROCURONIUM 10 MG/ML ML IV ONE (10:45)
[2018-09-03] MEDS ORDERED: PROPOFOL 200 MG/20 ML VIAL IV ONE (10:45)
[2018-09-03] MEDS ORDERED: ONDANSETRON 4 MG/2 ML VIAL IV ONE (10:45)
[2018-09-03] MEDS ORDERED: METHOCARBAMOL 1,000 MG/10 ML VIAL IV PRN (11:59)
[2018-09-03] MEDS ORDERED: diphenhydrAMINE 50 MG/ML VIAL IV PRN ×3 (11:59→13:27)
[2018-09-03] MEDS ORDERED: fentaNYL 100 MCG/2 ML VIAL IV PRN (11:59)
[2018-09-03] MEDS ORDERED: HYDROmorphone 2 MG/ML VIAL IV PRN ×2 (11:59→13:09)
[2018-09-03] MEDS ORDERED: IPRATROPIUM/ALBUTEROL 3 ML AMPUL.NEB NEB PRN (11:59)
[2018-09-03] MEDS ORDERED: ONDANSETRON 4 MG/2 ML VIAL IV PRN (11:59)
[2018-09-03] MEDS ORDERED: PROMETHAZINE 25 MG/ML VIAL IV PRN (11:59)
[2018-09-03] MEDS ORDERED: MEPERIDINE 25 MG/ML SYRINGE IV PRN (11:59)
[2018-09-03] MEDS ORDERED: LACTATED RINGERS 1,000 ML IV SCH (12:00)
--- NOTE | 2018-09-03 12:26 | Brief Operative Note ---
Date of procedure: 09/03/18 Pre-op diagnosis: anterior abdominal wall abscess, infected mesh Post-op diagnosis: same Procedure: 1) incision and drainage of abscess 2) sharp debridement of soft tissue, fascia and muscle 3) removal of mesh 4) placement of negative pressure wound therapy device ( 12cm by 11cm) 132 square centimeters Grafts/Implants: No Anesthesia: GETA Findings: purulent material in an abscess pocket above the mesh and the mesh was not incorporated. mesh removed no exposure of bowel defect is [id number] and the fascia defect is 3cm in diameter Complications: none Surgeon: Joe Collado Estimated blood loss (cc): 25 ( mL) Specimens Removed/Pathology: other (1) Gram stain, aerobic and anaerobic cultures of abscess material, 2) and the skin, soft tissue, abscess and debrided material were sent) Condition: stable Disposition: floor
--- NOTE | 2018-09-03 12:32 | Operative Note ---
Operative Report Preoperative diagnosis: Anterior abdominal wall abscess with infected mesh and sepsis. Postoperative diagnosis: Anterior abdominal wall mesh with infected mesh and sepsis. Procedure: 1) incision and drainage of anterior abdominal wall abscess; 2) Sharp debridement of skin, subcutaneous tissue, muscle and fascia; 3) placement of negative pressure wound therapy device (wound VAC) 132 cm; 4) removal of mesh. Surgeon: Joe Collado MD, FACS Date of surgery: 03 September 2018 Date of dictation: 03 September 2018 Public Affairs Manager: None. Anesthetic: General endotracheal anesthesia. Anesthesiologist: Dr. Gill. Antibiotic: Levaquin and vancomycin, which was given in the emergency department. Estimated blood loss: 25 mL Fluids: 2000 mL crystalloid. Urine output: 150 mL Drains: Negative pressure wound therapy device 132 cm (base of wound measures 12 cm x 11 cm Specimens: 1) Aerobic and anaerobic cultures and Gram stain of purulent fluid from abscess; 2) skin, subcutaneous tissue, fascia, muscle, abscess cavity and mesh from wound. Complications: None. Condition: Stable. Findings: 1)purulent material in an abscess pocket above the mesh and the mesh was not incorporated. 2) mesh removed 3) no exposure of bowel 4) defect is [id number] and the fascia defect is 3cm in diameter Description of the procedure: After the patient being correctly identified and informed consent obtained from the patient and her , she was taken to the operating room on a stretcher and transferred to the OR table. General endotracheal anesthesia was induced. It was ensured that all pressure points were adequately padded. The abdomen was prepped and draped in normal sterile fashion. A final timeout was performed to ensure that this was the correct pa tient, correct procedure and that antibiotics had been given. Everyone agreed. An incision was made in the lower midline using the patient's previous abdominal incision scar and it was extended superiorly around the large radial scar. She had to an area above the umbilicus and brought back to the midline. This was performed on the other side of the umbilicus creating an ellipse of tissue which did require removal of the umbilicus. The patient was informed of this possibility prior to the surgery and she fully understood. Electrocautery was used to dissect down through healthy, viable fat, being careful to stay out the abscess pocket. Dissection was carried all the way down to healthy fascia. I then started to dissect towards the midline and ultimately did enter the abscess pocket. This fluid was immediately cultured with a swab for Gram stain and aerobic/anaerobic cultures. The rest of the abscess pocket continued to be removed, exposing Prolene sutures which were cut and removed, which then exposed the mesh, which was not incorporated at all and was encased in purulent fluid. The entire abscess and mesh were removed and this did require some sharp debridement of muscle and fascia in order to ensure there was no injury to bowel or intra-abdominal structures. The specimen was passed off. The fascia around the defect was carefully cleared and ensured there was no purulent material or tracking of the abscess into the preperitoneal or intraperitoneal space. It was ensured that all nonviable tissue had been sharply removed. Excellent hemostasis was obtained using electrocautery. The wound was irrigated with 1 L of warm saline. A black negative pressure wound therapy sponge was appropriately shaped, to fit a wound measuring 12 cm x 11 cm. The sponge was placed in the wound, secured in place with the adhesive material provided with the device and suction was applied with an excellent seal. The patient was extubated, transferred to a stretcher and taken the recovery room in stable condition. There were no complications.
[2018-09-03] MEDS ORDERED: FUROSEMIDE 40 MG TABLET PO PRN ×2 (12:48→13:27)
[2018-09-03] MEDS ORDERED: BECLOMETHASONE DIPROPIONATE 40MCG INHALER INH PRN ×2 (12:48→13:27)
[2018-09-03] MEDS ORDERED: METHOCARBAMOL (PP) 750 MG TABLET (#4) PO PRN (12:48)
[2018-09-03] MEDS ORDERED: hydrOXYzine 25 MG TABLET PO PRN (12:48)
[2018-09-03] MEDS ORDERED: ONDANSETRON 4 MG ODT TABLET SL PRN ×2 (12:48→13:27)
[2018-09-03] MEDS ORDERED: ALBUTEROL SULFATE 1 PUFF INHALER IH PRN (12:48)
[2018-09-03] MEDS ORDERED: KETOROLAC TROMETHAMINE 10 MG TABLET PO PRN (12:56)
[2018-09-03] MEDS ORDERED: 0.9 % SODIUM CHLORIDE 10 ML SYRINGE IV PRN ×3 (12:56→15:25)
[2018-09-03] MEDS ORDERED: HYDROcodone/APAP 5/325MG TABLET PO PRN (12:56)
[2018-09-03] MEDS ORDERED: VANCOMYCIN 500 MG in 0.9 % SODIUM CHLORIDE 100 ML IV ONE ×2 (13:00→13:27)
[2018-09-03] MEDS ORDERED: VANCOMYCIN PER PHARMACY IV SCH ×2 (13:00→13:27)
[2018-09-03] MEDS ORDERED: MAGNESIUM HYDROXIDE 30 ML ORAL.SUSP PO PRN ×2 (13:09→13:27)
--- NOTE | 2018-09-03 13:41 | Emergency Department Note ---
Altered Mental Status HPI - General Chief Complaint: Altered Mental Status Stated Complaint: Unresponsive Time Seen by Provider: 09/03/18 05:37 Source: family Mode of arrival: ambulatory Limitations: altered mental status - Related Data Home Medications Medication Instructions Recorded Confirmed estradiol 2 mg tablet 1.5 mg PO QDAY 10/27/16 09/03/18 furosemide 40 mg tablet 60 mg PO BID 10/27/16 09/03/18 gabapentin 300 mg capsule 300 mg PO TID 10/27/16 09/03/18 hydroxyzine HCl 25 mg tablet 25 mg PO QID PRN tab 10/27/16 09/03/18 Albuterol Sulfate [Proair Hfa] 8.5 gm IH PRN PRN 12/14/16 09/03/18 Beclomethasone Dipropionate [Qvar 80 mcg INH PRN PRN 12/14/16 09/03/18 40] Baclofen [Lioresal] 10 mg PO QID 09/03/18 09/03/18 Ondansetron [Zofran ODT] 4 mg PO Q4HP PRN 09/03/18 09/03/18 Sulfamethoxazole/Trimethoprim 1 tab PO Q12H 09/03/18 09/03/18 [Sulfamethoxazole-Tmp Ss Tablet] Previous Rx's Medication Instructions Recorded Tamsulosin [Flomax] 0.4 mg PO HS #30 cap 05/16/18 HYDROcodone/ACETAMINOPHEN [[place] 1 each PO Q6H PRN #10 tab 08/01/18 5-325 Tablet] Allergies Allergy/AdvReac Type Severity Reaction Status Date / Time Iodinated Contrast- Oral and Allergy Severe Swelling Verified 07/28/18 19:45 IV Dye [Iodinated Contrast Media - IV Dye] shellfish derived Allergy Severe Swelling Verified 07/28/18 19:45 of Lip/Tongue/Throat Penicillins Allergy Intermediate Hives Verified 07/28/18 19:45 [place] AdvReac Intermediate Hives Verified 07/28/18 19:45 Past Medical History - Past Medical History Medical history: Reports: cancer, hypertension, obesity, other Psychiatric history: Reports: anxiety, depression [employer] history: Reports: non-contributory Surgical history ED: Reports: herniorrhaphy, hysterectomy, other - Social History smoking status: Current every day smoker Alcohol use: Reports: None Drug use: Reports: none Physical Exam Limitations: altered mental status Course Vital Signs Temperature 96.3 F L 09/03/18 05:09 Pulse Rate 69 09/03/18 05:09 Respiratory Rate 20 09/03/18 05:09 Blood Pressure 130/106 09/03/18 05:09 Pulse Oximetry (%) 98 09/03/18 05:09 Temperature 96.8 F L 09/03/18 13:05 Pulse Rate 76 09/03/18 13:05 Respiratory Rate 12 09/03/18 13:05 Blood Pressure 129/99 09/03/18 13:05 Pulse Oximetry (%) 97 09/03/18 13:05 Altered Mental Status - MDM Narrative Medical decision making narrative: My only contact with this case was talking to the surgeon after he interviewed the patient. He planned to take her to the operating room to remove the mesh and admit the patient. - Lab Data Result diagrams: 09/03/18 06:00 09/03/18 06:00 Lab Results 09/03/18 09/03/18 09/03/18 Range/Units 05:46 05:46 06:00 WBC (4.5-11.0) K/mcL RBC (4.00-5.20) M/mcL Hgb (12.0-15.0) g/dL Hct (36.0-48.0) % MCV (80.0-100.0) fL MCH (26.0-34.0) pg MCHC (31.0-36.0) g/dL RDW (11.5-14.5) % Plt Count (140-440) K/mcL MPV (7.4-10.4) fL Gran % (38.0-78.0) % Lymph % (Auto) (15.5-49.0) % [place] % (Auto) (1.0-12.0) % Eos % (Auto) (0.0-7.0) % Baso % (Auto) (0.0-2.0) % Gran # (1.8-8.0) K/mcL Lymph # (Auto) (1.5-4.8) K/mcL [place] # (Auto) (0.1-0.9) K/mcL Eos # (Auto) (0.0-0.7) K/mcL Baso # (Auto) (0.0-0.3) K/mcL VBG Lactic Acid (0.5-2.0) mmol/L Sodium (133-145) mmol/L Potassium (3.3-5.1) mmol/L Chloride (96-108) mmol/L Carbon Dioxide (22-30) mmol/L Anion Gap (8-16) BUN (6-20) mg/dl Creatinine (0.6-1.1) mg/dl GFR Calculation Glucose (70-105) mg/dL Calcium (8.6-10.4) mg/dl Total Bilirubin (0.0-1.0) mg/dL AST (0-37) U/l ALT (0-40) U/l Alkaline Phosphatase (39-117) U/L Total Creatine Kinase (24-170) IU/L CK-MB (CK-2) (0-2.9) ng/ml Troponin T (0-0.03) ng/ml Total Protein (5.9-8.4) gm/dL Albumin (3.2-5.2) gm/dL Globulin (2.2-3.7) gm/dL Albumin/Globulin Ratio (1.0-2.3) Amylase (28-100) U/L Lipase (7-60) U/L Urine Color Yellow Urine Appearance Clear Urine pH 5.0 (5.0-9.0) Ur Specific [place] 1.020 (1.000-1.035) Urine Protein Neg (NEG) mg/dL Urine Glucose (UA) Negative (NEG) mg/dL Urine Ketones Neg (NEG) mg/dL Urine Occult Blood Neg (<0.03) mg/dL Urine Nitrate Neg (NEG) Urine Bilirubin Neg (NEG) mg/dL Urine Urobilinogen Neg (NEG) mg/dL Ur Leukocyte Esterase Neg (NEG) /uL Ur Culture Indicated? No Urine Opiates Screen None detected (NONDETECTED) Ur Opiates Confirm Not Reportable Ur Oxycodone Screen None detected (NONDETECTED) Urine Methadone Screen None detected (NONDETECTED) Ur Methadone Confirm Not Reportable Ur Barbiturates Screen None detected (NONDETECTED) Ur Barbiturate Confirm Not Reportable Ur Phencyclidine Scrn None detected (NONDETECTED) Urine PCP Confirm Not Reportable Ur Amphetamines Screen None detected (NONDETECTED) U Amphetamines Confirm Not Reportable U Benzodiazepines Scrn None detected (NONDETECTED) U Benzodiazepine Confm Not Reportable Urine Cocaine Screen None detected (NONDETECTED) Urine Cocaine Confirm Not Reportable U Cannabinoids Confirm Not Reportable U Marijuana (THC) Screen Suspect positive A (NONDETECTED) Ethyl Alcohol < 0.010 (<0.010) gm/dl 09/03/18 09/03/18 09/03/18 Range/Units 06:00 06:00 06:00 WBC 9.9 (4.5-11.0) K/mcL RBC 4.58 (4.00-5.20) M/mcL Hgb 12.2 (12.0-15.0) g/dL Hct 38.1 (36.0-48.0) % MCV 83.1 (80.0-100.0) fL MCH 26.7 (26.0-34.0) pg MCHC 32.1 (31.0-36.0) g/dL RDW 14.8 H (11.5-14.5) % Plt Count 332 (140-440) K/mcL MPV 8.0 (7.4-10.4) fL Gran % 67.1 (38.0-78.0) % Lymph % (Auto) 21.4 (15.5-49.0) % [place] % (Auto) 8.0 (1.0-12.0) % Eos % (Auto) 3.2 (0.0-7.0) % Baso % (Auto) 0.3 (0.0-2.0) % Gran # 6.6 (1.8-8.0) K/mcL Lymph # (Auto) 2.1 (1.5-4.8) K/mcL [place] # (Auto) 0.8 (0.1-0.9) K/mcL Eos # (Auto) 0.3 (0.0-0.7) K/mcL Baso # (Auto) 0 (0.0-0.3) K/mcL VBG Lactic Acid 0.9 (0.5-2.0) mmol/L Sodium 142 (133-145) mmol/L Potassium 3.4 (3.3-5.1) mmol/L Chloride 106 (96-108) mmol/L Carbon Dioxide 23 (22-30) mmol/L Anion Gap 13.0 (8-16) BUN 16 (6-20) mg/dl Creatinine 0.8 (0.6-1.1) mg/dl GFR Calculation 84 Glucose 104 (70-105) mg/dL Calcium 8.2 L (8.6-10.4) mg/dl Total Bilirubin < 0.2 (0.0-1.0) mg/dL AST 20 (0-37) U/l ALT 19 (0-40) U/l Alkaline Phosphatase 75 (39-117) U/L Total Creatine Kinase (24-170) IU/L CK-MB (CK-2) (0-2.9) ng/ml Troponin T (0-0.03) ng/ml Total Protein 6.9 (5.9-8.4) gm/dL Albumin 3.5 (3.2-5.2) gm/dL Globulin 3.4 (2.2-3.7) gm/dL Albumin/Globulin Ratio 1.0 (1.0-2.3) Amylase (28-100) U/L Lipase (7-60) U/L Urine Color Urine Appearance Urine pH (5.0-9.0) Ur Specific [place] (1.000-1.035) Urine Protein (NEG) mg/dL Urine Glucose (UA) (NEG) mg/dL Urine Ketones (NEG) mg/dL Urine Occult Blood (<0.03) mg/dL Urine Nitrate (NEG) Urine Bilirubin (NEG) mg/dL Urine Urobilinogen (NEG) mg/dL Ur Leukocyte Esterase (NEG) /uL Ur Culture Indicated? Urine Opiates Screen (NONDETECTED) Ur Opiates Confirm Ur Oxycodone Screen (NONDETECTED) Urine Methadone Screen (NONDETECTED) Ur Methadone Confirm Ur Barbiturates Screen (NONDETECTED) Ur Barbiturate Confirm Ur Phencyclidine Scrn (NONDETECTED) Urine PCP Confirm Ur Amphetamines Screen (NONDETECTED) U Amphetamines Confirm U Benzodiazepines Scrn (NONDETECTED) U Benzodiazepine Confm Urine Cocaine Screen (NONDETECTED) Urine Cocaine Confirm U Cannabinoids Confirm U Marijuana (THC) Screen (NONDETECTED) Ethyl Alcohol (<0.010) gm/dl 09/03/18 09/03/18 09/03/18 Range/Units 06:00 06:00 07:10 WBC (4.5-11.0) K/mcL RBC (4.00-5.20) M/mcL Hgb (12.0-15.0) g/dL Hct (36.0-48.0) % MCV (80.0-100.0) fL MCH (26.0-34.0) pg MCHC (31.0-36.0) g/dL RDW (11.5-14.5) % Plt Count (140-440) K/mcL MPV (7.4-10.4) fL Gran % (38.0-78.0) % Lymph % (Auto) (15.5-49.0) % [place] % (Auto) (1.0-12.0) % Eos % (Auto) (0.0-7.0) % Baso % (Auto) (0.0-2.0) % Gran # (1.8-8.0) K/mcL Lymph # (Auto) (1.5-4.8) K/mcL [place] # (Auto) (0.1-0.9) K/mcL Eos # (Auto) (0.0-0.7) K/mcL Baso # (Auto) (0.0-0.3) K/mcL VBG Lactic Acid (0.5-2.0) mmol/L Sodium (133-145) mmol/L Potassium (3.3-5.1) mmol/L Chloride (96-108) mmol/L Carbon Dioxide (22-30) mmol/L Anion Gap (8-16) BUN (6-20) mg/dl Creatinine (0.6-1.1) mg/dl GFR Calculation Glucose (70-105) mg/dL Calcium (8.6-10.4) mg/dl Total Bilirubin (0.0-1.0) mg/dL AST (0-37) U/l ALT (0-40) U/l Alkaline Phosphatase (39-117) U/L Total Creatine Kinase 260 H (24-170) IU/L CK-MB (CK-2) 6.7 H (0-2.9) ng/ml Troponin T < 0.01 (0-0.03) ng/ml Total Protein (5.9-8.4) gm/dL Albumin (3.2-5.2) gm/dL Globulin (2.2-3.7) gm/dL Albumin/Globulin Ratio (1.0-2.3) Amylase 24 L (28-100) U/L Lipase 18 (7-60) U/L Urine Color Urine Appearance Urine pH (5.0-9.0) Ur Specific [place] (1.000-1.035) Urine Protein (NEG) mg/dL Urine Glucose (UA) (NEG) mg/dL Urine Ketones (NEG) mg/dL Urine Occult Blood (<0.03) mg/dL Urine Nitrate (NEG) Urine Bilirubin (NEG) mg/dL Urine Urobilinogen (NEG) mg/dL Ur Leukocyte Esterase (NEG) /uL Ur Culture Indicated? Urine Opiates Screen (NONDETECTED) Ur Opiates Confirm Ur Oxycodone Screen (NONDETECTED) Urine Methadone Screen (NONDETECTED) Ur Methadone Confirm Ur Barbiturates Screen (NONDETECTED) Ur Barbiturate Confirm Ur Phencyclidine Scrn (NONDETECTED) Urine PCP Confirm Ur Amphetamines Screen (NONDETECTED) U Amphetamines Confirm U Benzodiazepines Scrn (NONDETECTED) U Benzodiazepine Confm Urine Cocaine Screen (NONDETECTED) Urine Cocaine Confirm U Cannabinoids Confirm U Marijuana (THC) Screen (NONDETECTED) Ethyl Alcohol (<0.010) gm/dl Disposition Pt seen by GROUP LEADER/PA only: No Clinical Impression: Altered mental status Qualifiers: Altered mental status type: somnolence Qualified Code(s): R40.0 - Somnolence Infected prosthetic mesh of abdominal wall Qualifiers: Encounter type: initial encounter Qualified Code(s): T85.79XA - Infection and inflammatory reaction due to other internal prosthetic devices, implants and grafts, initial encounter Sepsis Qualifiers: Sepsis type: sepsis due to unspecified organism Qualified Code(s): A41.9 - Sepsis, unspecified organism Disposition: Xfer As Inpt ([facility]) Condition: Critical
[2018-09-03] MEDS ORDERED: ALBUTEROL SULFATE 1 PUFF INHALER INH PRN (14:06)
[2018-09-03] MEDS ORDERED: GABAPENTIN 300 MG CAPSULE PO SCH (15:00)
[2018-09-03] MEDS: HYDROmorphone 2 MG/ML VIAL IV PRN ×2 (16:22→22:22)
[2018-09-03] MEDS: GABAPENTIN 300 MG CAPSULE PO SCH ×2 (17:49→21:17)
--- NOTE | 2018-09-03 19:56 | XRay Report ---
HISTORY: PICC line insertion FINDINGS: A PICC line has been inserted through the left arm. The tip is in the upper portion right atrium. There is no pneumothorax, pleural effusion or widening of the mediastinum. The heart is mildly enlarged. Pulmonary vessels are mildly prominent but there is no pulmonary edema. The aorta is tortuous. IMPRESSION: No complication following PICC line insertion with the tip in the upper portion of the right atrium. Chronic stable cardiomegaly with borderline pulmonary vascular congestion Interpreted and Authenticated by: Stepan Ernst 09/03/18
[2018-09-03] MEDS: METHOCARBAMOL 750 MG TABLET PO PRN (19:57)
[2018-09-03] MEDS: KETOROLAC TROMETHAMINE 10 MG TABLET PO PRN (19:57)
[2018-09-03] MEDS: HYDROcodone/APAP 5/325MG TABLET PO PRN ×2 (19:58→23:44)
[2018-09-03] MEDS ORDERED: VANCOMYCIN 1,500 MG in 0.9 % SODIUM CHLORIDE 500 ML IV SCH (21:00)
[2018-09-03] MEDS ORDERED: TAMSULOSIN 0.4 MG CAPSULE PO SCH (21:00)
[2018-09-03] MEDS: TAMSULOSIN 0.4 MG CAPSULE PO SCH (21:16)
[2018-09-03] MEDS: 0.9 % SODIUM CHLORIDE 10 ML SYRINGE IV SCH (21:17)
[2018-09-03] MEDS: hydrOXYzine 25 MG TABLET PO PRN (21:17)
[2018-09-03] MEDS: VANCOMYCIN 1,500 MG in 0.9 % SODIUM CHLORIDE 500 ML IV SCH (21:17)
[2018-09-04] MEDS: HYDROmorphone 2 MG/ML VIAL IV PRN ×5 (04:00→23:36)
[2018-09-04] MEDS: HYDROcodone/APAP 5/325MG TABLET PO PRN ×5 (04:00→23:36)
[2018-09-04 05:26] LABS: Basophils # (Auto) 0 K/mcL (0.0-0.3); Basophils % (Auto) 0.5 % (0.0-2.0); Eosinophils # (Auto) 0.4 K/mcL (0.0-0.7); Eosinophils % (Auto) 4.3 % (0.0-7.0); Granulocytes % (Auto) 54.6 % (38.0-78.0); Lymphocytes # (Auto) 3.4 K/mcL (1.5-4.8); Lymphocytes % (Auto) 33.5 % (15.5-49.0); Mean Cell Volume 83.6 fL (80.0-100.0); Mean Corpuscular HGB Conc 32.1 g/dL (31.0-36.0); Monocytes # (Auto) 0.7 K/mcL (0.1-0.9); Monocytes % (Auto) 7.1 % (1.0-12.0); Platelet Count 287 K/mcL (140-440); RBC 3.98 M/mcL (4.00-5.20); Red Cell Distribution Width 14.8 % (11.5-14.5)
[2018-09-04 05:48] LABS: Blood Urea Nitrogen 9 mg/dl (6-20)
[2018-09-04] MEDS ORDERED: ESTRADIOL 2 MG TABLET PO SCH (09:00)
[2018-09-04] MEDS ORDERED: ENOXAPARIN 40 MG/0.4 ML SYRINGE SQ SCH (09:00)
[2018-09-04] MEDS: GABAPENTIN 300 MG CAPSULE PO SCH ×3 (09:17→21:44)
[2018-09-04] MEDS: ESTRADIOL 1 MG TABLET PO SCH (09:17)
[2018-09-04] MEDS: ENOXAPARIN 40 MG/0.4 ML SYRINGE SQ SCH (09:18)
[2018-09-04] MEDS: VANCOMYCIN 1,500 MG in 0.9 % SODIUM CHLORIDE 500 ML IV SCH ×2 (09:24→21:44)
[2018-09-04] MEDS: 0.9 % SODIUM CHLORIDE 10 ML SYRINGE IV SCH ×2 (09:25→21:44)
[2018-09-04] MEDS: KETOROLAC TROMETHAMINE 10 MG TABLET PO PRN ×2 (11:35→19:28)
--- NOTE | 2018-09-04 16:18 | General Surgery Progress Note ---
Subjective Patient reports: feels better, pain is less, tolerating a regular diet, flatus, afebrile Narrative: Note initiated : 09/04/18 at 4:16 pm Service Date, if different from initiated Date: [] Patient: Gentry Cornejo 53 y/o F admitted on 09/03/18 for Unresponsive. Chief Complaint: [patient is doing well. She has less abdominal pain. She has mild nausea but no vomiting. White blood count 10.2, hemoglobin 10.7. Minimal drainage through wound VAC.] Objective Temp Pulse Resp BP Pulse Ox 97.8 F 79 18 149/85 97 09/04/18 11:15 09/04/18 04:00 09/04/18 11:15 09/04/18 11:15 09/04/18 11:15 - Additional Data Intake & Output - Last 24 hours: Intake & Output 09/02/18 09/03/18 09/04/18 09/05/18 05:59 05:59 05:59 05:59 Intake Total 7532 1460 Output Total 325 150 Balance 7207 1310 Weight 250 lb 280 lb 8 oz 280 lb 8 oz - General physical appearance well developed, well nourished, no distress - Eyes PERRL, normal ocular movement - ENT normal pinna, normal nares, normal mucosa, no hearing loss, no congestion - Neck no masses, no bruits, trachea midline, no lymphadenopathy, no venous distension - Respiratory normal expansion, normal respiratory effort, clear to auscultation - Cardiovascular Cardiovascular exam: Present: normal rate and rhythm, RRR, +S1, +S2. Absent: JVD, tachycardia - Abdomen soft, tender (mildly tender around the apex site; tissue in the periphery is uninvolved; good active bowel sounds; small amount of serous fluid noted.) - Integumentary no rash, no growths, no abnormal pigmentation - Neurologic normal coordination, normal sensation - Musculoskeletal normal gait, normal posture - Psychiatric oriented to time, oriented to person, oriented to place, speech is normal, memory intact - Labs 09/04/18 04:10 09/04/18 04:10 Diabetes panel 09/04/18 Range/Units 04:10 Sodium 140 (133-145) mmol/L Potassium 3.8 (3.3-5.1) mmol/L Chloride 107 (96-108) mmol/L Carbon Dioxide 25 (22-30) mmol/L BUN 9 (6-20) mg/dl Creatinine 0.5 L (0.6-1.1) mg/dl Glucose 100 (70-105) mg/dL Calcium 8.2 L (8.6-10.4) mg/dl Calcium panel 09/04/18 Range/Units 04:10 Calcium 8.2 L (8.6-10.4) mg/dl Pituitary panel 09/04/18 Range/Units 04:10 Sodium 140 (133-145) mmol/L Potassium 3.8 (3.3-5.1) mmol/L Chloride 107 (96-108) mmol/L Carbon Dioxide 25 (22-30) mmol/L BUN 9 (6-20) mg/dl Creatinine 0.5 L (0.6-1.1) mg/dl Glucose 100 (70-105) mg/dL Calcium 8.2 L (8.6-10.4) mg/dl Adrenal panel 09/04/18 Range/Units 04:10 Sodium 140 (133-145) mmol/L Potassium 3.8 (3.3-5.1) mmol/L Chloride 107 (96-108) mmol/L Carbon Dioxide 25 (22-30) mmol/L BUN 9 (6-20) mg/dl Creatinine 0.5 L (0.6-1.1) mg/dl Glucose 100 (70-105) mg/dL Calcium 8.2 L (8.6-10.4) mg/dl Assessment and Plan (1) Infected prosthetic mesh of abdominal wall Status: Acute Assessment and plan: Continue present antibiotics pending culture and sensitivity. Recheck labs in the morning Current Visit: Yes (2) Chronic depression Status: Chronic Assessment and plan: Resume home medications Current Visit: No - Time Spent With Patient Total time spent is greater than 50% in coordination of care (as documented) at patient's floor/unit and/or counseling patient:
[2018-09-04] MEDS: TAMSULOSIN 0.4 MG CAPSULE PO SCH (21:44)
[2018-09-05] MEDS: hydrOXYzine 25 MG TABLET PO PRN (00:34)
[2018-09-05] MEDS: HYDROcodone/APAP 5/325MG TABLET PO PRN ×5 (03:46→22:10)
[2018-09-05] MEDS: HYDROmorphone 2 MG/ML VIAL IV PRN (03:47)
[2018-09-05] MEDS: ESTRADIOL 1 MG TABLET PO SCH (07:55)
[2018-09-05] MEDS: 0.9 % SODIUM CHLORIDE 10 ML SYRINGE IV SCH ×2 (07:55→20:22)
[2018-09-05] MEDS: ENOXAPARIN 40 MG/0.4 ML SYRINGE SQ SCH (07:56)
[2018-09-05] MEDS: GABAPENTIN 300 MG CAPSULE PO SCH ×3 (07:57→20:22)
[2018-09-05] MEDS: VANCOMYCIN 1,500 MG in 0.9 % SODIUM CHLORIDE 500 ML IV SCH ×2 (10:36→20:22)
[2018-09-05] MEDS: KETOROLAC TROMETHAMINE 10 MG TABLET PO PRN ×2 (12:16→20:21)
--- NOTE | 2018-09-05 16:44 | Surgical Pathology Report ---
HISTOLOGY SPECIMEN MICROSCOPIC DIAGNOSIS SKIN AND SOFT TISSUE, ANTERIOR ABDOMINAL WALL, EXCISION: -- ABSCESS, GRANULATION TISSUE, FOREIGN BODY GIANT CELL RESPONSE AND FIBROSIS. -- FOREIGN MATERIAL COMPATIBLE WITH MEDICAL-SURGICAL HARDWARE (MESH). -- NO MALIGNANCY IDENTIFIED. (RLF:eder) PROCEDURAL IMPRESSION Abdominal wall abscess with mesh. GROSS DESCRIPTION Received in formalin labeled abdominal wall abscess and mesh, is an ellipse of munoz skin that measures 8.7 x 3.2 cm. Centrally there are portions recessed and attached to the mesh beneath the surface. Extending out from the skin edges is munoz fatty tissue that measures 11 x 6.5 x 3.5 cm. Centrally beneath the skin surface within the fatty tissue, is mesh material and blue suture material, the blue sutures are used to attach the mesh to the skin. This corresponds to the recessed area on the skin surface. The margin is inked black. The central area where the mesh was attached is inked blue and within this area there are a few dusky [place]oz fragments identified. Sectioning through this area is firm munoz tissue extending from the skin surface to the area of mesh attachment. The mesh has portions of pink-munoz tissue that measures 9 x 5.7 x 2.8 cm. Floorworker Distributor sections are submitted in six cassettes: A1 - tips; A2-A6 - full cross sections cut into five pieces. (MIKEB:eder) Electronically Signed by: Rena Tracy M.D.
--- NOTE | 2018-09-05 16:47 | General Surgery Progress Note ---
Subjective Patient reports: feels better, pain is less, flatus, bowel movement, afebrile Narrative: Note initiated : 09/05/18 at 4:45 pm Service Date, if different from initiated Date: [] Patient: Gentry Cornejo 53 y/o F admitted on 09/03/18 for Unresponsive. Chief Complaint: [patient is doing well. She is afebrile. She is having copious flatus. No nausea appreciated.] Objective Temp Pulse Resp BP Pulse Ox 98.1 F 75 16 132/87 96 09/05/18 16:00 09/05/18 16:00 09/05/18 16:00 09/05/18 16:00 09/05/18 16:00 - Additional Data Intake & Output - Last 24 hours: Intake & Output 09/03/18 09/04/18 09/05/18 09/06/18 05:59 05:59 05:59 05:59 Intake Total 7532 2560 1520 Output Total 325 1800 950 Balance 7207 760 570 Weight 250 lb 280 lb 8 oz 280 lb - General physical appearance well developed, well nourished, no distress - Eyes PERRL, normal ocular movement - ENT normal pinna, normal nares, normal mucosa, no hearing loss, no congestion - Neck no masses, no bruits, trachea midline, no lymphadenopathy, no venous distension - Respiratory normal expansion, normal respiratory effort, clear to auscultation - Cardiovascular Cardiovascular exam: Present: normal rate and rhythm, RRR, +S1, +S2. Absent: JVD, tachycardia - Abdomen non tender, bowel sounds (present), surgical scars (incision looks good; good active bowel sounds; modest amount of serosanguineous drainage), masses (none) - Integumentary no rash, no growths, no abnormal pigmentation - Neurologic normal coordination, normal sensation - Musculoskeletal normal gait, normal posture - Psychiatric oriented to time, oriented to person, oriented to place, speech is normal, memory intact - Labs 09/04/18 04:10 09/04/18 04:10 Assessment and Plan (1) Infected prosthetic mesh of abdominal wall Status: Acute Assessment and plan: Continue present antibiotics pending culture and sensitivity. Recheck labs in the morning Current Visit: Yes (2) Chronic depression Status: Chronic Assessment and plan: Resume home medications Current Visit: No - Time Spent With Patient Total time spent is greater than 50% in coordination of care (as documented) at patient's floor/unit and/or counseling patient:
[2018-09-05] MEDS: METHOCARBAMOL 750 MG TABLET PO PRN (17:03)
[2018-09-05] MEDS: TAMSULOSIN 0.4 MG CAPSULE PO SCH (20:21)
[2018-09-06] MEDS: hydrOXYzine 25 MG TABLET PO PRN (00:57)
[2018-09-06] MEDS: HYDROcodone/APAP 5/325MG TABLET PO PRN ×5 (02:14→22:19)
[2018-09-06] MEDS: HYDROmorphone 2 MG/ML VIAL IV PRN ×2 (02:22→15:08)
[2018-09-06 03:55] LABS: Basophils # (Auto) 0 K/mcL (0.0-0.3); Basophils % (Auto) 0.6 % (0.0-2.0); Eosinophils # (Auto) 0.5 K/mcL (0.0-0.7); Granulocytes % (Auto) 42.5 % (38.0-78.0); Lymphocytes # (Auto) 2.7 K/mcL (1.5-4.8); Lymphocytes % (Auto) 40.2 % (15.5-49.0); Mean Cell Volume 82.7 fL (80.0-100.0); Mean Corpuscular HGB Conc 32.5 g/dL (31.0-36.0); Monocytes # (Auto) 0.6 K/mcL (0.1-0.9); Monocytes % (Auto) 9.7 % (1.0-12.0); Platelet Count 284 K/mcL (140-440); RBC 3.51 M/mcL (4.00-5.20); Red Cell Distribution Width 14.9 % (11.5-14.5)
[2018-09-06 04:44] LABS: ALT/SGPT 17 U/l (0-40); Albumin 2.6 gm/dL (3.2-5.2); Albumin/Globulin Ratio 0.8 (1.0-2.3); Alkaline Phosphatase 60 U/L (39-117); Bilirubin,Direct < 0.2 mg/dL (0.0-0.3); Blood Urea Nitrogen 13 mg/dl (6-20); Gamma Glutamyl Transpeptidase 18 U/L (5-36); Uric Acid 3.8 mg/dL (2.5-8.0)
[2018-09-06] MEDS: GABAPENTIN 300 MG CAPSULE PO SCH ×3 (09:41→21:42)
[2018-09-06] MEDS: ESTRADIOL 1 MG TABLET PO SCH (09:41)
[2018-09-06] MEDS: ENOXAPARIN 40 MG/0.4 ML SYRINGE SQ SCH (09:41)
[2018-09-06] MEDS: 0.9 % SODIUM CHLORIDE 10 ML SYRINGE IV SCH ×2 (10:26→21:43)
[2018-09-06] MEDS: VANCOMYCIN 1,500 MG in 0.9 % SODIUM CHLORIDE 500 ML IV SCH ×2 (10:27→21:41)
[2018-09-06] MEDS: METHOCARBAMOL 750 MG TABLET PO PRN ×3 (11:06→22:53)
--- NOTE | 2018-09-06 13:29 | General Surgery Progress Note ---
Subjective Patient reports: feels better, pain is less (all), tolerating a regular diet, flatus, bowel movement, afebrile Narrative: Note initiated : 09/06/18 at 1:26 pm Service Date, if different from initiated Date: [] Patient: Gentry Cornejo 53 y/o F admitted on 09/03/18 for Unresponsive. Chief Complaint: [patient is doing well except for mild incisional tenderness. She is having regular bowel movements. She is afebrile. White count 6.7, hemoglobin 9.4, hematocrit 29.1. BUN and creatinine normal.] Objective Temp Pulse Resp BP Pulse Ox 96.8 F L 77 14 130/80 95 09/06/18 12:00 09/06/18 12:00 09/06/18 12:00 09/06/18 12:00 09/06/18 12:00 - Additional Data Intake & Output - Last 24 hours: Intake & Output 09/04/18 09/05/18 09/06/18 09/07/18 05:59 05:59 05:59 05:59 Intake Total 7532 2560 3880 720 Output Total 325 1800 1665 Balance 7207 760 2215 720 Weight 280 lb 8 oz 280 lb 282 lb - General physical appearance well developed, well nourished, no distress - Eyes PERRL, normal ocular movement - ENT normal pinna, normal nares, normal mucosa, no hearing loss, no congestion - Neck no masses, no bruits, trachea midline, no lymphadenopathy, no venous distension - Respiratory normal expansion, normal respiratory effort, clear to auscultation - Cardiovascular Cardiovascular exam: Present: normal rate and rhythm, RRR, +S1, +S2. Absent: JVD, tachycardia - Abdomen non tender, bowel sounds (present), surgical scars (none), masses (none) - Integumentary no rash, no growths, no abnormal pigmentation - Neurologic normal coordination, normal sensation - Musculoskeletal normal gait, normal posture - Psychiatric oriented to time, oriented to person, oriented to place, speech is normal, memory intact - Labs 09/06/18 03:00 09/06/18 03:00 Diabetes panel 09/06/18 Range/Units 03:00 Sodium 141 (133-145) mmol/L Potassium 4.0 (3.3-5.1) mmol/L Chloride 104 (96-108) mmol/L Carbon Dioxide 28 (22-30) mmol/L BUN 13 (6-20) mg/dl Creatinine 0.5 L (0.6-1.1) mg/dl Glucose 95 (70-105) mg/dL Calcium 8.2 L (8.6-10.4) mg/dl AST 18 (0-37) U/l ALT 17 (0-40) U/l Alkaline Phosphatase 60 (39-117) U/L Total Protein 5.7 L (5.9-8.4) gm/dL Albumin 2.6 L (3.2-5.2) gm/dL Triglycerides 128 (<150) mg/dl Calcium panel 09/06/18 Range/Units 03:00 Calcium 8.2 L (8.6-10.4) mg/dl Phosphorus 3.8 (2.7-4.5) mg/dL Albumin 2.6 L (3.2-5.2) gm/dL Pituitary panel 09/06/18 Range/Units 03:00 Sodium 141 (133-145) mmol/L Potassium 4.0 (3.3-5.1) mmol/L Chloride 104 (96-108) mmol/L Carbon Dioxide 28 (22-30) mmol/L BUN 13 (6-20) mg/dl Creatinine 0.5 L (0.6-1.1) mg/dl Glucose 95 (70-105) mg/dL Calcium 8.2 L (8.6-10.4) mg/dl Adrenal panel 09/06/18 Range/Units 03:00 Sodium 141 (133-145) mmol/L Potassium 4.0 (3.3-5.1) mmol/L Chloride 104 (96-108) mmol/L Carbon Dioxide 28 (22-30) mmol/L BUN 13 (6-20) mg/dl Creatinine 0.5 L (0.6-1.1) mg/dl Glucose 95 (70-105) mg/dL Calcium 8.2 L (8.6-10.4) mg/dl Total Bilirubin < 0.2 (0.0-1.0) mg/dL AST 18 (0-37) U/l ALT 17 (0-40) U/l Alkaline Phosphatase 60 (39-117) U/L Total Protein 5.7 L (5.9-8.4) gm/dL Albumin 2.6 L (3.2-5.2) gm/dL Assessment and Plan (1) Infected prosthetic mesh of abdominal wall Status: Acute Assessment and plan: Continue present antibiotics pending culture and sensitivity. Recheck labs in the morning Change wound VAC today. Anticipate discharge home on Tuesday with 14 days of IV vancomycin as an outpatient Current Visit: Yes (2) Chronic depression Status: Chronic Assessment and plan: Resume home medications Current Visit: No - Time Spent With Patient Total time spent is greater than 50% in coordination of care (as documented) at patient's floor/unit and/or counseling patient:
[2018-09-06] MEDS: KETOROLAC TROMETHAMINE 10 MG TABLET PO PRN (18:17)
[2018-09-06] MEDS ORDERED: AMITRIPTYLINE 10 MG TABLET PO SCH (21:00)
[2018-09-06] MEDS: TAMSULOSIN 0.4 MG CAPSULE PO SCH (21:42)
[2018-09-06] MEDS: AMITRIPTYLINE 25 MG TABLET PO SCH (21:42)
[2018-09-07] MEDS: HYDROcodone/APAP 5/325MG TABLET PO PRN ×3 (04:38→19:29)
[2018-09-07] MEDS: 0.9 % SODIUM CHLORIDE 10 ML SYRINGE IV SCH ×3 (04:39→21:01)
[2018-09-07 06:15] LABS: Basophils # (Auto) 0 K/mcL (0.0-0.3); Basophils % (Auto) 0.6 % (0.0-2.0); Eosinophils # (Auto) 0.5 K/mcL (0.0-0.7); Eosinophils % (Auto) 6.7 % (0.0-7.0); Granulocytes % (Auto) 51.3 % (38.0-78.0); Lymphocytes # (Auto) 2.2 K/mcL (1.5-4.8); Lymphocytes % (Auto) 32.2 % (15.5-49.0); Mean Cell Volume 82.8 fL (80.0-100.0); Mean Corpuscular HGB Conc 32.6 g/dL (31.0-36.0); Monocytes # (Auto) 0.6 K/mcL (0.1-0.9); Monocytes % (Auto) 9.2 % (1.0-12.0); Platelet Count 289 K/mcL (140-440); RBC 3.54 M/mcL (4.00-5.20)
[2018-09-07 06:22] LABS: ALT/SGPT 23 U/l (0-40); Albumin 2.8 gm/dL (3.2-5.2); Albumin/Globulin Ratio 0.9 (1.0-2.3); Alkaline Phosphatase 62 U/L (39-117); Bilirubin,Direct < 0.2 mg/dL (0.0-0.3); Blood Urea Nitrogen 14 mg/dl (6-20); Gamma Glutamyl Transpeptidase 20 U/L (5-36); Uric Acid 3.8 mg/dL (2.5-8.0)
[2018-09-07] MEDS: KETOROLAC TROMETHAMINE 10 MG TABLET PO PRN ×3 (07:59→22:18)
[2018-09-07] MEDS: ESTRADIOL 1 MG TABLET PO SCH (09:20)
[2018-09-07] MEDS: GABAPENTIN 300 MG CAPSULE PO SCH ×3 (09:21→21:02)
[2018-09-07] MEDS: ENOXAPARIN 40 MG/0.4 ML SYRINGE SQ SCH (09:23)
[2018-09-07] MEDS ORDERED: IPRATROPIUM/ALBUTEROL 3 ML AMPUL.NEB NEB PRN (09:34)
[2018-09-07] MEDS: VANCOMYCIN 1,500 MG in 0.9 % SODIUM CHLORIDE 500 ML IV SCH ×2 (09:43→21:00)
--- NOTE | 2018-09-07 17:14 | General Surgery Progress Note ---
Subjective Patient reports: feels better, pain is less, tolerating a regular diet, flatus, bowel movement, afebrile, other (patient complains of headache with change in thought pattern and unsteady gait and leg weakness. This is a new complaint) Narrative: Note initiated : 09/07/18 at 5:11 pm Service Date, if different from initiated Date: [] Patient: Gentry Cornejo 53 y/o F admitted on 09/03/18 for Unresponsive. Chief Complaint: [clinically stable with regards to her abdominal wound. She is afebrile and the wound base is granulating in nicely. She does complain of some change in thought patterns and unsteady gait with leg weakness. She states that she had multiple falls at home prior to being admitted.. I cannot detect any neurologic change on exam.] Objective Temp Pulse Resp BP Pulse Ox 97.6 F 70 16 131/76 97 09/07/18 16:00 09/07/18 16:00 09/07/18 16:00 09/07/18 16:00 09/07/18 16:00 - Additional Data Intake & Output - Last 24 hours: Intake & Output 09/05/18 09/06/18 09/07/18 09/08/18 05:59 05:59 05:59 05:59 Intake Total 2560 3880 3210 1780 Output Total 1800 1665 2700 800 Balance 760 2215 510 980 Weight 280 lb 282 lb 284 lb - General physical appearance well developed, well nourished, no distress - Eyes PERRL, normal ocular movement - ENT normal pinna, normal nares, normal mucosa, no hearing loss, no congestion - Neck no masses, no bruits, trachea midline, no lymphadenopathy, no venous distension - Respiratory normal expansion, normal respiratory effort, clear to auscultation - Cardiovascular Cardiovascular exam: Present: normal rate and rhythm, RRR, +S1, +S2. Absent: JVD, tachycardia - Abdomen tender (mild tenderness around open wound site, but the wound is actually con tracting), bowel sounds (present), surgical scars (none), masses (none) - Integumentary no rash, no growths, no abnormal pigmentation - Neurologic normal coordination, normal sensation, other (. No motor or sensory changes; no change in speech pattern and no evidence of alteration of thought patterns) - Musculoskeletal normal gait, normal posture - Psychiatric oriented to time, oriented to person, oriented to place, speech is normal, memory intact - Labs 09/07/18 04:00 09/07/18 04:00 Diabetes panel 09/07/18 Range/Units 04:00 Sodium 142 (133-145) mmol/L Potassium 4.3 (3.3-5.1) mmol/L Chloride 104 (96-108) mmol/L Carbon Dioxide 29 (22-30) mmol/L BUN 14 (6-20) mg/dl Creatinine 0.4 L (0.6-1.1) mg/dl Glucose 92 (70-105) mg/dL Calcium 8.2 L (8.6-10.4) mg/dl AST 24 (0-37) U/l ALT 23 (0-40) U/l Alkaline Phosphatase 62 (39-117) U/L Total Protein 5.8 L (5.9-8.4) gm/dL Albumin 2.8 L (3.2-5.2) gm/dL Triglycerides 84 (<150) mg/dl Calcium panel 09/07/18 Range/Units 04:00 Calcium 8.2 L (8.6-10.4) mg/dl Phosphorus 3.8 (2.7-4.5) mg/dL Albumin 2.8 L (3.2-5.2) gm/dL Pituitary panel 09/07/18 Range/Units 04:00 Sodium 142 (133-145) mmol/L Potassium 4.3 (3.3-5.1) mmol/L Chloride 104 (96-108) mmol/L Carbon Dioxide 29 (22-30) mmol/L BUN 14 (6-20) mg/dl Creatinine 0.4 L (0.6-1.1) mg/dl Glucose 92 (70-105) mg/dL Calcium 8.2 L (8.6-10.4) mg/dl Adrenal panel 09/07/18 Range/Units 04:00 Sodium 142 (133-145) mmol/L Potassium 4.3 (3.3-5.1) mmol/L Chloride 104 (96-108) mmol/L Carbon Dioxide 29 (22-30) mmol/L BUN 14 (6-20) mg/dl Creatinine 0.4 L (0.6-1.1) mg/dl Glucose 92 (70-105) mg/dL Calcium 8.2 L (8.6-10.4) mg/dl Total Bilirubin < 0.2 (0.0-1.0) mg/dL AST 24 (0-37) U/l ALT 23 (0-40) U/l Alkaline Phosphatase 62 (39-117) U/L Total Protein 5.8 L (5.9-8.4) gm/dL Albumin 2.8 L (3.2-5.2) gm/dL Assessment and Plan (1) Infected prosthetic mesh of abdominal wall Status: Acute Assessment and plan: Continue present antibiotics pending culture and sensitivity. Recheck labs in the morning Change wound VAC today. Anticipate discharge home on Tuesday with 14 days of IV vancomycin as an outpatient Current Visit: Yes (2) Chronic depression Status: Chronic Assessment and plan: Resume home medications Current Visit: No (3) Altered mental status Status: Acute Assessment and plan: CT of head with contrast to rule out intra-cerebral injury Current Visit: Yes - Time Spent With Patient Total time spent is greater than 50% in coordination of care (as documented) at patient's floor/unit and/or counseling patient:
--- NOTE | 2018-09-07 18:13 | Cat Scan Report ---
CLINICAL INFORMATION: Head injury. Patient is unresponsive COMPARISON: Previous examination dated 09/03/2018 TECHNIQUE: Axial noncontrast-enhanced images through the brain. Sagittal and coronal reformatted images FINDINGS: No acute intracranial hemorrhage. No intra-axial hematoma. No focal intra-axial attenuation abnormality. No localized mass effect. No midline shift. Brain volume is normal. Brainstem and cerebellum are negative. No intracranial, extra-axial abnormality. There is no subdural hematoma. There is no subarachnoid hemorrhage. Basilar cisterns are normal. No calvarial fracture. Temporal bones are negative. No significant interval change since 09/03/2018 IMPRESSION: Negative noncontrast enhanced brain CT scan The exam was performed using radiation dose optimization techniques including, but not limited to, automated exposure control, adjustment of the mA and/or kV according to patient size and use of iterative reconstruction technique. Interpreted and Authenticated by: Gunnar Bruce 09/07/18
[2018-09-07] MEDS: METHOCARBAMOL 750 MG TABLET PO PRN (19:29)
[2018-09-07] MEDS: TAMSULOSIN 0.4 MG CAPSULE PO SCH (21:02)
[2018-09-07] MEDS: AMITRIPTYLINE 25 MG TABLET PO SCH (21:02)
[2018-09-07] MEDS: hydrOXYzine 25 MG TABLET PO PRN (22:19)
[2018-09-08] MEDS: HYDROcodone/APAP 5/325MG TABLET PO PRN ×7 (00:15→20:59)
[2018-09-08] MEDS: METHOCARBAMOL 750 MG TABLET PO PRN ×2 (01:23→20:57)
[2018-09-08] MEDS: KETOROLAC TROMETHAMINE 10 MG TABLET PO PRN ×2 (04:38→12:39)
[2018-09-08] MEDS: ESTRADIOL 1 MG TABLET PO SCH (08:18)
[2018-09-08] MEDS: ENOXAPARIN 40 MG/0.4 ML SYRINGE SQ SCH (08:19)
[2018-09-08] MEDS: GABAPENTIN 300 MG CAPSULE PO SCH ×3 (08:19→20:58)
[2018-09-08] MEDS: VANCOMYCIN 1,500 MG in 0.9 % SODIUM CHLORIDE 500 ML IV SCH ×2 (09:00→20:55)
[2018-09-08] MEDS: 0.9 % SODIUM CHLORIDE 10 ML SYRINGE IV SCH ×2 (09:00→20:56)
--- NOTE | 2018-09-08 11:23 | General Surgery Progress Note ---
Subjective Patient reports: feels better, pain is less, tolerating a regular diet, flatus, bowel movement, afebrile Narrative: Note initiated : 09/08/18 at 11:22 am Service Date, if different from initiated Date: [] Patient: Gentry Cornejo 53 y/o F admitted on 09/03/18 for Unresponsive. Chief Complaint: [patient is doing well. She has mild discomfort around her wound VAC site but otherwise is stable. She is tolerating diet without difficulty. She is having regular bowel movements.the vague mental changes that she had yesterday have resolved. CT of the head does not reveal any evidence of intracranial trauma..] Objective Temp Pulse Resp BP Pulse Ox 97.6 F 73 16 138/90 93 09/08/18 11:00 09/08/18 11:00 09/08/18 11:00 09/08/18 11:00 09/08/18 11:00 - Additional Data Intake & Output - Last 24 hours: Intake & Output 09/06/18 09/07/18 09/08/18 09/09/18 05:59 05:59 05:59 05:59 Intake Total 3880 3210 3880 500 Output Total 1665 2700 2500 Balance 2215 510 1380 500 Weight 282 lb 284 lb 288 lb - General physical appearance well developed, well nourished, no distress - Eyes PERRL, normal ocular movement - ENT normal pinna, normal nares, normal mucosa, no hearing loss, no congestion - Neck no masses, no bruits, trachea midline, no lymphadenopathy, no venous distension - Respiratory normal expansion, normal respiratory effort, clear to auscultation - Cardiovascular Cardiovascular exam: Present: normal rate and rhythm, RRR, +S1, +S2. Absent: JVD, tachycardia - Abdomen soft, tender (mild tenderness around operative site but without erythema or induration), surgical scars (. Wound VAC intact with adequate suction and decreasing drainage) - Integumentary no rash, no growths, no abnormal pigmentation - Neurologic normal coordination, normal sensation - Musculoskeletal normal gait, normal posture - Psychiatric oriented to time, oriented to person, oriented to place, speech is normal, mem ory intact - Labs 09/07/18 04:00 09/07/18 04:00 Assessment and Plan (1) Infected prosthetic mesh of abdominal wall Status: Acute Assessment and plan: Continue present antibiotics pending culture and sensitivity. Recheck labs in the morning Change wound VAC today. Anticipate discharge home on Tuesday with 10 days of IV vancomycin as an outpatient Current Visit: Yes (2) Chronic depression Status: Chronic Assessment and plan: Resume home medications Current Visit: No (3) Altered mental status Status: Acute Assessment and plan: mental status improved CT of the skull and brain was negative Current Visit: Yes - Time Spent With Patient Total time spent is greater than 50% in coordination of care (as documented) at patient's floor/unit and/or counseling patient:
[2018-09-08] MEDS: HYDROmorphone 2 MG/ML VIAL IV PRN ×3 (13:28→22:12)
[2018-09-08] MEDS: TAMSULOSIN 0.4 MG CAPSULE PO SCH (20:57)
[2018-09-08] MEDS: AMITRIPTYLINE 25 MG TABLET PO SCH (20:57)
[2018-09-08] MEDS: hydrOXYzine 25 MG TABLET PO PRN (20:58)
[2018-09-09] MEDS: HYDROcodone/APAP 5/325MG TABLET PO PRN ×3 (01:01→11:10)
[2018-09-09] MEDS: HYDROmorphone 2 MG/ML VIAL IV PRN ×3 (03:45→12:26)
[2018-09-09] MEDS: VANCOMYCIN 1,500 MG in 0.9 % SODIUM CHLORIDE 500 ML IV SCH (09:29)
[2018-09-09] MEDS: ENOXAPARIN 40 MG/0.4 ML SYRINGE SQ SCH (09:30)
[2018-09-09] MEDS: GABAPENTIN 300 MG CAPSULE PO SCH (09:30)
[2018-09-09] MEDS: ESTRADIOL 1 MG TABLET PO SCH (09:30)
[2018-09-09] MEDS: METHOCARBAMOL 750 MG TABLET PO PRN (09:30)
[2018-09-09] MEDS: 0.9 % SODIUM CHLORIDE 10 ML SYRINGE IV SCH (09:41)
--- NOTE | 2018-09-09 14:01 | Discharge Summary ---
Providers - Providers Patient information: Note initiated : 09/09/18 at 1:57 pm Service Date, if different from initiated Date: [] Patient: Gentry Cornejo 53 y/o F admitted on 09/03/18 for Unresponsive. 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 She was brought to the emergency room after she was found on her porch, responsive. She had purulent drainage from her abdominal wound. History is that she has been treated by a surgeon in [place], [place] and there was a plan to remove the mesh at some future date. She was treated by Dr. Collado who did surgical debridement of the wound and remove the mesh graft. She had an abscess superior to the mesh, but not involving the peritoneal cavity. Subcutaneous tissues. Skin, fascia and muscle were debrided. The wound VAC was placed. The patient was treated with IV antibiotics and has done well. Initial blood cultures grew out MSSA from 2 bottles and wound cultures grew out MRSA. She is presently receiving vancomycin. She is afebrile and has normal white blood count. Her wound is granulating in nicely. She will be treated with IV vancomycin for 10 days as an outpatient. Wound VAC will be continued until the wound is healed. Patient is stable and discharged discharged in satisfactory condition. Discharge diagnosis: Gram-positive bacteremia due to methicillin sensitive Staphylococcus aureus Secondary discharge diagnosis: Abdominal wound infection due to methicillin-resistant Staphylococcus aureus. Mesh graft infection Reason for admission: unresponsive state with bacteremia Procedures: Exploratory laparotomy with debridement of abdominal wall including subcutaneous tissue, muscle and fascia Removal of infected mesh graft. Placement of wound VAC system Pertinent studies/significant findings: CT of abdomen and pelvis with contrast Complications: None Exam Temp Pulse Resp BP Pulse Ox 97.4 F 82 20 146/98 95 09/09/18 12:00 09/09/18 04:00 09/09/18 12:00 09/09/18 12:00 09/09/18 12:00 - General physical appearance well developed, well nourished, no distress, obese - Eyes PERRL, normal ocular movement - ENT normal pinna, normal nares, normal mucosa, no hearing loss, no congestion - Head Head exam IM: Present: atraumatic, normocephalic - Neck no masses, no bruits, trachea midline, no lymphadenopathy, no venous distension - Cardiovascular Cardiovascular exam IM: Present: normal rate and rhythm - Respiratory normal expansion, normal respiratory effort, clear to auscultation - Abdomen Abdomen: Present: soft, tender (moderate tenderness around the incision edges, but no major induration; good active bowel sounds; wound VAC drainage is serous), bowel sounds Hernia: Present: none - Genitourinary Present: normal external genitalia - Rectum Rectum: Present: normal sphincter tone, no hemorrhoids, no tenderness, no masses, no bleeding - Integumentary Present: no rash, no growths, no abnormal pigmentation - Neurologic Present: normal coordination, normal sensation - Musculoskeletal Present: normal gait, normal posture - Psychiatric Present: oriented to time, oriented to person, oriented to place, speech is normal, memory intact Discharge Plan - Patient/Caregiver Discharge Instructions Activity: increase activity as tolerated Diet: Regular Diet Additional Instructions: Wound VAC dressing change at least twice weekly or more frequent, if indicated Prescriptions: HYDROcodone/APAP 10/325MG [[place] 10-325Mg] 1 tab PO Q4H PRN #60 tab PRN Reason: Pain Vancomycin Per Pharmacy 1 order IV BID #20 miscell - Follow up Plan Follow up with: Nora Joiner ARNP [Primary Care Provider] - Cody Haji MD [Physician] - 09/25/18 9:45 am Disposition: Home, Self-Care Prognosis: Good Rehab Potential: Good I certify that the patient requires SNF services.: No Overall status at discharge: patient is progressing back to baseline Pending Studies Resuscitation Status Full Code Diet Regular Diet Start TueSep 04 1423 Hydrocodone Bitart/Acetaminophen ([place] 5/325mg) 1 tab PO Q4HP PRN PRN Reason: PAIN LEVEL 3-6 Last Admin: 09/09/18 11:10 Dose: 1 tab Documented by: Admin: 09/09/18 07:19 Dose: 1 tab Documented by: Admin: 09/09/18 01:01 Dose: 1 tab Documented by: Admin: 09/08/18 20:59 Dose: 1 tab Documented by: Admin: 09/08/18 16:58 Dose: 1 tab Documented by: Admin: 09/08/18 12:40 Dose: 1 tab Documented by: Admin: 09/08/18 08:49 Dose: 1 tab Documented by: CAESAR Cosigned by: MICHELLE Admin: 09/08/18 04:39 Dose: 1 tab Documented by: Admin: 09/08/18 00:15 Dose: 1 tab Documented by: Admin: 09/07/18 19:29 Dose: 1 tab Documented by: Admin: 09/07/18 12:49 Dose: 1 tab Documented by: Admin: 09/07/18 04:38 Dose: 1 tab Documented by: Admin: 09/06/18 22:19 Dose: 1 tab Documented by: Admin: 09/06/18 18:20 Dose: 1 tab Documented by: Admin: 09/06/18 14:05 Dose: 1 tab Documented by: Admin: 09/06/18 11:06 Dose: 1 tab Documented by: Admin: 09/06/18 02:14 Dose: 1 tab Documented by: Admin: 09/05/18 22:10 Dose: 1 tab Documented by: Admin: 09/05/18 17:03 Dose: 1 tab Documented by: Admin: 09/05/18 12:15 Dose: 1 tab Documented by: Admin: 09/05/18 07:55 Dose: 1 tab Documented by: Admin: 09/05/18 03:46 Dose: 1 tab Documented by: Admin: 09/04/18 23:36 Dose: 1 tab Documented by: Admin: 09/04/18 19:28 Dose: 1 tab Documented by: Admin: 09/04/18 14:24 Dose: 1 tab Documented by: Admin: 09/04/18 09:17 Dose: 1 tab Documented by: Admin: 09/04/18 04:00 Dose: 1 tab Documented by: Admin: 09/03/18 23:44 Dose: 1 tab Documented by: Admin: 09/03/18 19:58 Dose: 1 tab Documented by: DEVIN Albuterol/Ipratropium (Duoneb) 3 ml NEB Q6HP PRN PRN Reason: Shortness Of Breath Last Admin: 09/07/18 09:57 Dose: 3 ml Documented by: [email or web address] Amitriptyline HCl (Elavil) 50 mg PO HS [facility] Last Admin: 09/08/18 20:57 Dose: 50 mg Documented by: Admin: 09/07/18 21:02 Dose: 50 mg Documented by: Admin: 09/06/18 21:42 Dose: 50 mg Documented by: [email or web address] Enoxaparin Sodium (Lovenox) 40 mg SQ DAILY [facility] Last Admin: 09/09/18 09:30 Dose: 40 mg Documented by: Admin: 09/08/18 08:19 Dose: 40 mg Documented by: CAESAR Cosigned by: MICHELLE Admin: 09/07/18 09:23 Dose: 40 mg Documented by: CAESAR Cosigned by: MICHELLE Admin: 09/06/18 09:41 Dose: 40 mg Documented by: Admin: 09/05/18 07:56 Dose: 40 mg Documented by: Admin: 09/04/18 09:18 Dose: 40 mg Documented by: RAKEL Estradiol (Estrace) 2 mg PO DAILY [facility] Last Admin: 09/09/18 09:30 Dose: 2 mg Documented by: Admin: 09/08/18 08:18 Dose: 2 mg Documented by: CAESAR Cosigned by: MICHELLE Admin: 09/07/18 09:20 Dose: 2 mg Documented by: CAESAR Cosigned by: MICHELLE Admin: 09/06/18 09:41 Dose: 2 mg Documented by: Admin: 09/05/18 07:55 Dose: 2 mg Documented by: Admin: 09/04/18 09:17 Dose: 2 mg Documented by: RAKEL Gabapentin (Neurontin) 300 mg PO TID [facility] Admin: 09/09/18 09:30 Dose: 300 mg Documented by: Admin: 09/08/18 20:58 Dose: 300 mg Documented by: Admin: 09/08/18 15:28 Dose: 300 mg Documented by: Admin: 09/08/18 08:19 Dose: 300 mg Documented by: CAESAR Cosigned by: MICHELLE Admin: 09/07/18 21:02 Dose: 300 mg Documented by: Admin: 09/07/18 15:06 Dose: 300 mg Documented by: Admin: 09/07/18 09:21 Dose: 300 mg Documented by: CAESAR Cosigned by: MICHELLE Admin: 09/06/18 21:42 Dose: 300 mg Documented by: Admin: 09/06/18 14:05 Dose: 300 mg Documented by: Admin: 09/06/18 09:41 Dose: 300 mg Documented by: Admin: 09/05/18 20:22 Dose: 300 mg Documented by: Admin: 09/05/18 17:04 Dose: 300 mg Documented by: Admin: 09/05/18 07:57 Dose: 300 mg Documented by: Admin: 09/04/18 21:44 Dose: 300 mg Documented by: Admin: 09/04/18 14:24 Dose: 300 mg Documented by: Admin: 09/04/18 09:17 Dose: 300 mg Documented by: Admin: 09/03/18 21:17 Dose: 300 mg Documented by: Admin: 09/03/18 17:49 Dose: 300 mg Documented by: [email or web address] Heparin Sodium (Porcine) (Heparin Flush) 2 ml IV Q12 NATALIA [facility] [[email or web address] Admin: 09/09/18 09:30 Dose: 2 ml Documented by: Admin: 09/08/18 20:56 Dose: 2 ml Documented by: Admin: 09/08/18 09:01 Dose: 2 ml Documented by: Admin: 09/07/18 21:01 Dose: 2 ml Documented by: Admin: 09/07/18 09:43 Dose: 2 ml Documented by: Admin: 09/06/18 21:42 Dose: 2 ml Documented by: Admin: 09/06/18 09:42 Dose: 2 ml Documented by: Admin: 09/05/18 20:22 Dose: 2 ml Documented by: Admin: 09/05/18 07:56 Dose: 2 ml Documented by: Admin: 09/04/18 21:44 Dose: 2 ml Documented by: Admin: 09/04/18 09:25 Dose: 2 ml Documented by: Admin: 09/03/18 21:17 Dose: 2 ml Documented by: DEVIN Hydromorphone HCl (Dilaudid) 0.5 mg IV Q4HP PRN PRN Reason: PAIN LEVEL > 6 Last Admin: 09/09/18 12:26 Dose: 0.5 mg Documented by: Admin: 09/09/18 09:25 Dose: 0.5 mg Documented by: Admin: 09/09/18 03:45 Dose: 0.5 mg Documented by: Admin: 09/08/18 22:12 Dose: 0.5 mg Documented by: Admin: 09/08/18 17:56 Dose: 0.5 mg Documented by: Admin: 09/08/18 13:28 Dose: 0.5 mg Documented by: Admin: 09/06/18 15:08 Dose: 0.5 mg Documented by: Admin: 09/06/18 02:22 Dose: 0.5 mg Documented by: Admin: 09/05/18 03:47 Dose: 0.5 mg Documented by: Admin: 09/04/18 23:36 Dose: 0.5 mg Documented by: Admin: 09/04/18 19:28 Dose: 0.5 mg Documented by: Admin: 09/04/18 15:23 Dose: 0.5 mg Documented by: Admin: 09/04/18 11:35 Dose: 0.5 mg Documented by: Admin: 09/04/18 04:00 Dose: 0.5 mg Documented by: Admin: 09/03/18 22:22 Dose: 0.5 mg Documented by: Admin: 09/03/18 16:22 Dose: 0.5 mg Documented by: TL Hydroxyzine HCl (Atarax) 25 mg PO QID PRN PRN Reason: Anxiety Last Admin: 09/08/18 20:58 Dose: 25 mg Documented by: Admin: 09/07/18 22:19 Dose: 25 mg Documented by: Admin: 09/06/18 00:57 Dose: 25 mg Documented by: Admin: 09/05/18 00:34 Dose: 25 mg Documented by: Admin: 09/03/18 21:17 Dose: 25 mg Documented by: DEVIN Vancomycin HCl 1,500 mg/ (Sodium Chloride) 500 mls @ 333.3 mls/hr IV Q12H NATALIA Last Admin: 09/09/18 09:29 Dose: 333 mls/hr Documented by: Infusion: 09/08/18 22:59 Dose: 0 mls/hr Documented by: Admin: 09/08/18 20:55 Dose: 333 mls/hr Documented by: Infusion: 09/08/18 11:12 Dose: 0 mls/hr Documented by: Admin: 09/08/18 09:00 Dose: 333 mls/hr Documented by: Infusion: 09/07/18 22:31 Dose: 333 mls/hr Documented by: Admin: 09/07/18 21:00 Dose: 333 mls/hr Documented by: Infusion: 09/07/18 11:30 Dose: 0 mls/hr Documented by: [email or web address] Admin: 09/07/18 09:43 Dose: 333 mls/hr Documented by: [email or web address] Infusion: 09/06/18 23:35 Dose: 0 mls/hr Documented by: Admin: 09/06/18 21:41 Dose: 333 mls/hr Documented by: Infusion: 09/06/18 12:00 Dose: 0 mls/hr Documented by: [email or web address] Admin: 09/06/18 10:27 Dose: 333 mls/hr Documented by: [email or web address] Infusion: 09/05/18 22:30 Dose: 0 mls/hr Documented by: [email or web address] Admin: 09/05/18 20:22 Dose: 333 mls/hr Documented by: Infusion: 09/05/18 12:07 Dose: 333 mls/hr Documented by: Admin: 09/05/18 10:36 Dose: 333 mls/hr Documented by: Infusion: 09/04/18 23:15 Dose: 0 mls/hr Documented by: Admin: 09/04/18 21:44 Dose: 333 mls/hr Documented by: Infusion: 09/04/18 11:08 Dose: 0 mls/hr Documented by: Admin: 09/04/18 09:24 Dose: 333 mls/hr Documented by: Infusion: 09/03/18 23:36 Dose: 0 mls/hr Documented by: Admin: 09/03/18 21:17 Dose: 333.3 mls/hr Documented by: DEVIN Methocarbamol (Robaxin) 750 mg PO QIDP PRN PRN Reason: Muscle Spasm Last Admin: 09/09/18 09:30 Dose: 750 mg Documented by: Admin: 09/08/18 20:57 Dose: 750 mg Documented by: Admin: 09/08/18 01:23 Dose: 750 mg Documented by: Admin: 09/07/18 19:29 Dose: 750 mg Documented by: Admin: 09/06/18 22:53 Dose: 750 mg Documented by: Admin: 09/06/18 18:17 Dose: 750 mg Documented by: Admin: 09/06/18 11:06 Dose: 750 mg Documented by: Admin: 09/05/18 17:03 Dose: 750 mg Documented by: Admin: 09/03/18 19:57 Dose: 750 mg Documented by: DEVIN Sodium Chloride (Saline Flush) 10 ml IV Q12 NATALIA Last Admin: 09/09/18 09:41 Dose: 10 ml Documented by: Admin: 09/08/18 20:56 Dose: 10 ml Documented by: Admin: 09/08/18 09:00 Dose: 10 ml Documented by: Admin: 09/07/18 21:01 Dose: 10 ml Documented by: Admin: 09/07/18 09:43 Dose: 10 ml Documented by: Admin: 09/07/18 04:39 Dose: 10 ml Documented by: Admin: 09/06/18 21:43 Dose: 10 ml Documented by: Admin: 09/06/18 10:26 Dose: 10 ml Documented by: Admin: 09/05/18 20:22 Dose: 10 ml Documented by: Admin: 09/05/18 07:55 Dose: 10 ml Documented by: Admin: 09/04/18 21:44 Dose: 10 ml Documented by: Admin: 09/04/18 09:25 Dose: 10 ml Documented by: Admin: 09/03/18 21:17 Dose: 10 ml Documented by: DEVIN Tamsulosin HCl (Flomax) 0.4 mg PO HS NATALIA Last Admin: 09/08/18 20:57 Dose: 0.4 mg Documented by: Admin: 09/07/18 21:02 Dose: 0.4 mg Documented by: Admin: 09/06/18 21:42 Dose: 0.4 mg Documented by: Admin: 09/05/18 20:21 Dose: 0.4 mg Documented by: Admin: 09/04/18 21:44 Dose: 0.4 mg Documented by: Admin: 09/03/18 21:16 Dose: 0.4 mg Documented by: DEVIN Shift Summary 09/09/18 04:43 Shift Summary by Marielena Stiles Pt admitted 09/03 with sepsis and abdominal wound abscess. A&O x4, up w/ SBA in room w/ FWW. Tolerating regular diet. Woundvac to mid abdominal wound, 100 mL out of serosanguinous drainage this shift. Slept off and on this shift. Received [place] 5/325 x2 this shift, Dilaudid 0.5 mg x2 this shift. Patient aware that she will not be discharged with IV pain medications, she was reporting 6-7/10 pain to her abdominal wound and asked for the Dilaudid to help her sleep. Double lumen PICC to ALEXX. Voiding adequately per BR, BM yesterday. Contact isolation for active MRSA in abdominal wound. Plan is to d/c home tomorrow, with outpatient Vanco infusions and dressing changes. Bedside report to follow. Initialized on 09/09/18 04:43 - END OF NOTE
== END 2018-09-09 14:45 | disposition home or self-care (01) | DRG 853 ==
LOC: ED 05:07 → SUR 10:18 → MEDSUR 13:00
PROVIDERS: ATTEND Family Medicine Adult Medicine

== ENCOUNTER 2021-07-12 16:35 | Inpatient (IN) ==
[2021-07-12] MEDS ORDERED: morphine 4 MG/ML VIAL IV ONE (16:50)
[2021-07-12] MEDS ORDERED: ONDANSETRON 4 MG/2 ML VIAL IV ONE (16:50)
[2021-07-12] MEDS ORDERED: HYDROmorphone 1 MG/ML SYRINGE IV ONE ×2 (17:30→18:24)
[2021-07-12] MEDS ORDERED: HYDROmorphone 1 MG/ML SYRINGE ONE (17:38)
[2021-07-12] MEDS ORDERED: ONDANSETRON 4 MG/2 ML VIAL IV PRN ×2 (18:43→22:16)
--- NOTE | 2021-07-12 18:54 | XRay Report ---
HISTORY: Injury, fractured left knee FINDINGS: Six views of the left femur were obtained. There is an acute comminuted fracture of the distal shaft of the femur extending into the joint. The greatest comminution is in the distal shaft of the femur. There is a longitudinal component which extends into the intercondylar notch. The lateral view shows moderate dorsal angulation at the fracture site. The mid and proximal shaft of the femur are normal. The hip is normal. The tibial plateaus are normal. IMPRESSION: Severely comminuted intra-articular fracture of the distal femur with angulation deformity Interpreted and Authenticated by: Stepan Ernst 07/12/21
[2021-07-12 18:59] LABS: Basophils # (Auto) 0.12 K/mcL (0.00-0.30); Eosinophils # (Auto) 0.07 K/mcL (0.00-0.70); Eosinophils % (Auto) 0.6 % (0.0-7.0); Hematocrit 43.2 % (34.1-44.9); Hemoglobin 13.5 g/dL (11.2-15.7); Lymphocytes # (Auto) 1.59 K/mcL (1.50-4.80); Lymphocytes % (Auto) 12.8 % (15.5-49.0); Mean Corpuscular HGB Conc 31.3 g/dL (31.0-36.0); Mean Platelet Volume 9.5 fL (7.4-10.4); Monocytes # (Auto) 0.81 K/mcL (0.10-0.90); Monocytes % (Auto) 6.5 % (1.0-12.0); Neutrophils % (Auto) 79.1 % (38.0-78.0); Platelet Count 291 K/mcL (140-440); RBC 4.91 M/mcL (3.59-5.38); Red Cell Distribution Width 13.4 % (11.5-14.5); WBC 12.4 K/mcL (4.5-11.0)
[2021-07-12 19:21] LABS: ALT/SGPT 22 U/L (<40); AST/SGOT 17 U/L (<32); Albumin 3.5 gm/dL (3.2-5.2); Alkaline Phosphatase 73 U/L (39-117); Bilirubin,Total 0.2 mg/dL (0.1-1.0); Blood Urea Nitrogen 11 mg/dL (6-20); Calcium 8.8 mg/dL (8.6-10.4); Carbon Dioxide 23 mmol/L (22-30); Chloride 101 mmol/L (96-108); Globulin 3.5 gm/dL (2.2-3.7); Glomerular Filtration Rate 102; Glucose 89 mg/dL (70-105)
[2021-07-12 19:22] LABS: INR 0.9 (0.9-1.1); Prothrombin Time 12.5 sec (11.9-14.5)
[2021-07-12] MEDS: HYDROmorphone 1 MG/ML SYRINGE IV ONE (19:30)
--- NOTE | 2021-07-12 20:08 | Cat Scan Report ---
History: Presurgical staging to repair comminuted intra-articular fracture of the distal left femur TECHNIQUE: The left leg was imaged without contrast from the proximal shaft to the shaft of the tibia and fibula at 2.5 mm intervals. Sagittal, coronal and 3-D volume rendered images were created. The radiation exposure was limited using dose reduction technology. FINDINGS: There is an acute severely comminuted fracture in the distal diaphyseal region of the femur. There are multiple fragments displaced posteriorly and laterally. The main component of the distal end of the femur is retracted proximally 4.5 cm and displaced posteriorly 3.3 cm. There is relatively little angulation between the main shaft of the femur and the distal end. There is a nondisplaced longitudinally oriented component of the fracture which extends to the intercondylar notch. There is no involvement in the femoral condyles. The tibial plateaus are normal. A large joint effusion is present in the suprapatellar bursa. There is edema in the vastus intermedius muscle. IMPRESSION: Comminuted intra-articular fracture of the distal femur with proximal retraction and posterior displacement of the distal end of the bone Interpreted and Authenticated by: Stepan Ernst 07/12/21
[2021-07-12] MEDS ORDERED: PROPOFOL 200 MG/20 ML VIAL IV ONE (20:31)
[2021-07-12] MEDS ORDERED: MAGNESIUM SULFATE 2 GM/50 ML BAG IV ONE (20:31)
[2021-07-12] MEDS ORDERED: LIDOCAINE HCL/PF 100 MG/5 ML SYRINGE IV ONE (20:31)
[2021-07-12] MEDS ORDERED: ROPIVACAINE HCL/PF 20 ML VIAL IJ ONE (20:31)
[2021-07-12] MEDS ORDERED: KETAMINE 50 MG/ML Syringe (ANEST) IV ONE (20:31)
[2021-07-12] MEDS ORDERED: DEXAMETHASONE 10 MG/ML VIAL ONE (20:31)
[2021-07-12] MEDS ORDERED: ONDANSETRON 4 MG/2 ML VIAL ONE (20:31)
[2021-07-12] MEDS ORDERED: ceFAZolin 3 GM in DEXTROSE 5% IN WATER 50 ML IV SCH (20:45)
[2021-07-12] MEDS ORDERED: diphenhydrAMINE 50 MG/ML VIAL IV PRN (22:16)
[2021-07-12] MEDS ORDERED: IPRATROPIUM/ALBUTEROL 3 ML AMPUL.NEB NEB PRN (22:16)
[2021-07-12] MEDS ORDERED: BENZOCAINE/MENTHOL 1 LOZENGE PO PRN ×2 (22:16→22:28)
[2021-07-12] MEDS ORDERED: ACETAMINOPHEN 1,000 MG/100 ML BAG IV ONE ×2 (22:16→23:14)
[2021-07-12] MEDS ORDERED: MEPERIDINE 25 MG/ML VIAL IV PRN (22:16)
[2021-07-12] MEDS ORDERED: PROMETHAZINE 25 MG/ML VIAL IV PRN (22:16)
[2021-07-12] MEDS ORDERED: LACTATED RINGERS 250 ML IV PRN (22:16)
[2021-07-12] MEDS ORDERED: BISACODYL 10 MG SUPP.RECT PR PRN (22:28)
[2021-07-12] MEDS ORDERED: FLEETS ADULT ENEMA PR PRN (22:28)
[2021-07-12] MEDS ORDERED: POLYETHYLENE GLYCOL 3350 17 GM PACKET PO PRN (22:28)
[2021-07-12] MEDS ORDERED: MAGNESIUM HYDROXIDE 30 ML ORAL.SUSP PO PRN (22:28)
--- NOTE | 2021-07-12 22:29 | Brief Operative Note ---
Brief Operative Note Date of procedure: 07/12/21 Pre-op diagnosis: Left severely comminuted intra-articular closed supracondylar femur fractur Post-op diagnosis: same Procedure: Opent treatment with intra-medullary rodding of closed intra-articular supracondylar femur fracture Grafts/Implants: Yes ([place] supracondylar nail [id number]) Anesthesia: GETA Findings: severe comminution extending into the joint Complications: none Surgeon: Mickey Albright Pulmonologist: Chon Najera Estimated blood loss (cc): 350 Specimens Removed/Pathology: none sent Condition: stable Disposition: PACU
[2021-07-12] MEDS ORDERED: LACTATED RINGERS 1,000 ML IV SCH (22:30)
[2021-07-12] MEDS ORDERED: TEMAZEPAM 15 MG CAPSULE PO PRN (22:34)
[2021-07-12] MEDS ORDERED: FUROSEMIDE 40 MG TABLET PO PRN (22:37)
[2021-07-12] MEDS: fentaNYL 100 MCG/2 ML VIAL IV PRN ×4 (23:00→23:42)
[2021-07-12] MEDS: fentaNYL 100 MCG/2 ML VIAL IV ONE (23:00)
[2021-07-12] MEDS ORDERED: ALBUTEROL SULFATE 2.5 MG/3 ML NEBULIZER ONE (23:02)
[2021-07-12] MEDS ORDERED: HYDROmorphone 0.5 MG/0.5 ML SYRINGE ONE (23:15)
[2021-07-12] MEDS ORDERED: LORazepam 2 MG/ML VIAL IM ONE (23:44)
[2021-07-12] MEDS ORDERED: LORazepam 2 MG/ML VIAL ONE (23:50)
[2021-07-12] MEDS: FLUMAZENIL 0.1 MG/ML ML IV ONE (23:55)
[2021-07-12] MEDS ORDERED: FLUMAZENIL 0.1 MG/ML ML IV ONE (23:55)
[2021-07-13] MEDS: NALOXONE HCL 0.4 MG/ML VIAL IV PRN ×2 (00:04→00:08)
[2021-07-13] MEDS ORDERED: NALOXONE HCL 0.4 MG/ML VIAL ONE (00:10)
[2021-07-13] MEDS ORDERED: KETOROLAC 30 MG/ML VIAL IV ONE (00:17)
[2021-07-13] MEDS: KETOROLAC 30 MG/ML VIAL IV PRN ×4 (00:20→22:21)
[2021-07-13] MEDS: HYDROmorphone 1 MG/ML SYRINGE IV ONE (01:01)
[2021-07-13] MEDS: ceFAZolin 3 GM in DEXTROSE 5% IN WATER 50 ML IV SCH ×4 (01:02→16:09)
[2021-07-13] MEDS: 0.9 % SODIUM CHLORIDE 1,000 ML IV SCH ×3 (01:04→13:39)
[2021-07-13] MEDS: fentaNYL 100 MCG/2 ML VIAL IV ONE (01:12)
[2021-07-13] MEDS: FLUMAZENIL 0.1 MG/ML ML IV ONE (01:16)
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
[2021-07-13] MEDS ORDERED: ONDANSETRON 4 MG ODT TABLET PO PRN (06:01)
--- NOTE | 2021-07-13 08:30 | XRay Report ---
CLINICAL INFORMATION: ORIF severely comminuted fracture distal left femoral diaphysis/metaphysis COMPARISON: Preoperative films 07/12/2021 1741 hours. FINDINGS: Multiple digital intraoperative films show the severely comminuted fracture of the distal femur to be reduced to anatomic alignment and transfixed by IM allison and screws. IMPRESSION: ORIF distal femoral fracture in anatomic alignment Interpreted and Authenticated by: Gunnar Cabrera 07/13/21
[2021-07-13] MEDS: 0.9 % SODIUM CHLORIDE 10 ML SYRINGE IV SCH ×2 (08:56→20:15)
[2021-07-13] MEDS: lamoTRIgine 25 MG TABLET PO SCH (09:04)
[2021-07-13] MEDS: DOCUSATE SODIUM 100 MG CAPSULE PO SCH ×2 (09:04→20:15)
[2021-07-13] MEDS: ACETAMINOPHEN 500 MG TABLET PO PRN (09:04)
[2021-07-13] MEDS: LIDOCAINE PATCH TOPICAL SCH (09:05)
[2021-07-13] MEDS: HYDROcodone/APAP 10/325MG TABLET PO PRN ×5 (09:53→20:13)
[2021-07-13] MEDS: ENOXAPARIN 30 MG/0.3 ML SYRINGE SQ SCH (09:59)
--- NOTE | 2021-07-13 10:06 | Operative Note ---
DATE OF OPERATION: 07/12/2021 PREOPERATIVE DIAGNOSIS: Left severely-comminuted intraarticular supracondylar femur fracture, closed. POSTOPERATIVE DIAGNOSIS: Left severely-comminuted intraarticular supracondylar femur fracture, closed. PROCEDURE PERFORMED: Open treatment internal fixation with retrograde intramedullary rodding of the closed supracondylar intraarticular distal femur fracture using a [place] supracondylar femoral nail, size 12 x 340 mm. SURGEON: Mickey Albright M.D. STEEL PAN FORM PLACING SUPERVISOR: Tyshawn Najera PA-C. The PA's assistance was required for the safe and efficient completion of the entire case. This provider's expertise and technical skill were required throughout the case. The PA assisted with preoperative coordination, intraoperative retraction, wound closure, dressing and splint application, as well as postoperative documentation and care coordination. ANESTHESIA: General. DRAINS: None. SPECIMENS: None. COMPLICATIONS: None. ESTIMATED BLOOD LOSS: 350 mL. POSTOPERATIVE CONDITION: Stable. INDICATIONS FOR SURGERY: This is a 56-year-old, morbidly obese female with a BMI over 50, who sustained a ground-level fall injuring her left thigh. She had severe pain and inability to move. She was taken to the emergency department. X-ray showed a severely-comminuted distal femur fracture. CT scan showed this had intercondylar extension. FINDINGS AT SURGERY: Severe comminution. Post-fixation showed acceptable overall limb alignment and hardware position. PROCEDURE IN DETAIL: The patient had been seen in the preoperative holding and informed consent had been obtained after discussion of risks and benefits of surgery. Risks including, but not limited to, bleeding; infection; injury to nerves, blood vessels, other surrounding structures; anesthetic risks; nonunion or malunion of the fracture, this being highly likely given her severe comminution and a history of smoking, which she was strongly encouraged to quit; failure of hardware fixation, this being highly possible given her severe morbid obesity and osteoporotic bone; possibility of needing further surgery given the need for possible hardware removal, further fracture treatment or need for knee surgery given that she does have significant osteoarthritis. She understood these risks and wished to proceed. Correct operative site was marked in preoperative holding, and the patient was taken to the operating room. General anesthesia was induced. Left lower extremity was carefully prepped and draped in normal sterile fashion and a timeout was performed verifying patient name, operative site, and plan. Stockinette was put over the foot and Coban was wrapped around it. A timeout was performed verifying patient name, operative site, and plan. A scalpel was used to make a midline incision starting at about the tibial tubercle and extending up over the patella. This was taken sharply through skin and subcutaneous tissue and hemostasis obtained with Bovie cautery. We continued sharply down onto the extensor mechanism. IrriSept was irrigated and then a medial parapatellar arthrotomy was made and a large hemarthrosis was evacuated, again verifying intraarticular extension. Due to the intraarticular nature, we did go ahead and make a stab incision laterally and drilled a guide pin for the 6.5 cannulated screws from lateral to medial, anterior to our predicted allison trajectory. I was able to directly visualize this exit the other side and a depth gauge was verified. We then placed a 6.5 cannulated screw. This reduced the intercondylar extension anatomically and gave us fixation. I then used the guide pin and placed it central in the notch and passed it up retrograde. Fluoroscopy was checked in AP and lateral views to verify entry hole position and so we then went ahead and used the opening reamer. Pin was removed and then a ball-tip guidewire was passed retrograde. Due to the severe comminution of the fracture, reduction was challenging. We did end up using a reduction spoon with our ball-tip wire and eventually were able to pass a guide pin into the proximal shaft. This was taken up to the lesser trochanter and then our depth gauge was checked distally. We chose a 360 mm length. I then began sequentially reaming. She had severe osteoporosis and the first couple of reamers did not even make contact and I was able to push it right up the canal. When we started getting bony contact, I went up by half sizes until a 13.5 mm reamer was getting significant rim ream. We then opened a 12 x 360 mm nail. This was impacted and followed until it engaged the proximal shaft and then we made sure it was buried below the articular surface distally. We then started drilling and filling our distal cluster of interlocking screws, starting with the most proximal screw laterally. A stab incision was made. We spread down to bone, drilled under fluoroscopy, and then placed an interlocking screw. This was repeated for the anterior medial oblique screw #2, and then the lateral oblique screw #3, and then the straight lateral-most screw #4. When the distal cluster was filled, we then removed the jig and placed an end cap. I then grabbed the leg while the pelvis was stabilized and gave it a brisk pull several times to try and make sure the fracture was out to length. We then checked with fluoroscopy at the fracture site. It did appear we were reasonably out to length. We then went proximal. Perfect circles were obtained over the static locking hole. A stab incision was made and then spread down to bone with a tonsil clamp. Drill was used under fluoroscopy with perfect circles to drill bicortically. We then measured this to a 32 mm length. I then placed a static locking screw 32 mm through the static hole proximally, getting excellent bicortical fixation. At this point, final fluoro images were taken AP and lateral of the proximal, distal and fracture site. There was some significant displacement of the fragments at the fracture site; however, there was such severe comminution, we did not feel that cable fixation would provide any significant benefit other than it would potentially devascularize some of the fracture fragments. Images were saved. We irrigated copiously with IrriSept, after a minute copiously with saline. I then placed the knee over a small triangle and then Stratafix suture was used to close the quadriceps tendon down to the mid patella with a second one closing from distal up the patellar tendon to the mid patella. Final IrriSept irrigation was done, after a minute final saline irrigation. Fat was closed with some deep fat sutures and then 2-0 Monocryl was used for subcutaneous closure and alison for skin. Xeroform and sterile dressing were applied. The patient was then awakened, extubated, and transferred to recovery in stable condition. LUANNE:sarwat Job ID: [id number] Doc ID: [id number] Mickey Albright MD
--- NOTE | 2021-07-13 14:10 | Discharge Plan ---
DC Instructions-General Patient Instructions Dressing Care: Cover dressing in shower and Other (leave silver dressing in place x 7 days, daily dressing changes to small incisions) Discharge Plan Patient/Caregiver Discharge Instructions Activity: non-weight bearing Diet: Regular Diet Prescriptions: New hydrocodone-acetaminophen 10-325 mg Tablet 1 - 2 tab PO Q4H PRN (Reason: pain) Qty: 90 0RF enoxaparin [Lovenox] 40 mg/0.4 mL Syringe 40 mg SUBCUT Q24H Qty: 42 0RF No Action furosemide 40 mg tablet 60 mg PO PRN PRN (Reason: Edema) 0RF lamotrigine 25 mg tablet 50 mg PO DAILY 0RF Label Comments: TAKE 2 TABLETS BY MOUTH ONCE DAILY ALONG WITH 100MG TO EQUAL 150MG DAILY TAPER UP 1 DAILY FOR 1 WEEK THEN 2 DAILY) trazodone 100 mg tablet 200 mg PO HS 0RF Label Comments: TAKE 2 TABLETS BY MOUTH NEEDED AT BEDTIME prazosin 2 mg capsule 4 mg PO HS 0RF Label Comments: TAKE 1 CAPSULE BY MOUTH ONCE DAILY AT BEDTIME quetiapine [Seroquel] 50 mg Tablet 25 mg PO QHS 0RF ondansetron 4 mg tablet,disintegrating 4 mg PO Q6H PRN (Reason: nausea and vomiting) Qty: 20 0RF lidocaine 5 % adhesive patch,medicated 1 patch topical QDAY Qty: 15 0RF Rx Instructions: leave on most painful area for up to 12 hrs naproxen 500 mg tablet 1 tab PO PRN PRN (Reason: Pain) 0RF albuterol sulfate 90 mcg/actuation HFA aerosol inhaler 90 mcg continuous inhalation PRN PRN (Reason: Shortness Of Breath) 0RF Other Ambulatory Orders: OT Discharge Order (Routine) Location: None Selected Ordered By: Mickey Albright Physical Therapy DC - General (Routine) Location: None Selected Ordered By: Mickey Albright Wheelchair (ONCE) Location: None Selected Ordered By: Mickey Albright Follow Up Plan Follow up with: Mickey Albright MD [Physician] - Nora Joiner ARNP [Primary Care Provider] - Patient Disposition: Xfer SNF Prognosis: Fair Rehab Potential: Fair I certify that the patient requires SNF services: Yes Discharge Orders: Discharge Order (Routine); Ordered 07/14/21 Ordered By: Mickey Albright
[2021-07-13] MEDS: METHOCARBAMOL 750 MG TABLET PO PRN (14:11)
[2021-07-13] MEDS: HYDROmorphone 0.5 MG/0.5 ML SYRINGE IV PRN (16:37)
--- NOTE | 2021-07-13 17:01 | Orthopedic Progress Note ---
SUBJECTIVE Subjective Patient information: Note initiated : 07/13/21 at 4:59 pm Service Date, if different from initiated Date: [] Patient: Gentry Cornejo 56 y/o F admitted on 07/13/21 for knee injury. Chief Complaint: [] Principal diagnosis: s/p IMR of Left distal femur fracture Interval history: pain controlled Constitutional Vitals: Vital Signs Temp Pulse Resp BP Pulse Ox 98.9 F 81 14 107/64 89 L 07/13/21 16:00 07/13/21 16:00 07/13/21 16:00 07/13/21 16:00 07/13/21 16:00 Period Temp Pulse Resp BP Sys/Celaya Pulse Ox Last 24 Hr 97.0 F-98.9 F 60-130 9-20 91-164/57-142 84-99 Intake and Output 07/13/21 07/13/21 07/13/21 05:59 13:59 21:59 Intake Total 100 1530 240 Output Total 1300 Balance -1200 1530 240 Weight 314 lb 5 oz Intake & Output: Intake & Output 07/13/21 07/13/21 07/13/21 05:59 13:59 21:59 Intake Total 100 1530 240 Output Total 1300 Balance -1200 1530 240 Weight 314 lb 5 oz Intake: IV 100 1050 Sodium Chloride 0.9% 1,000 ml @ 1000 125 mls/hr IV .Q8H NATALIA Rx#: [id number] Ancef 3 gm In Dextrose 5% in 50 Water 50 ml @ 100 mls/hr IV Q8H NATALIA Rx#:[id number] Oral 480 240 Output: Urine Catheter Amount 1300 Straight 650 Other: Meal Lunch Percent of Meal Consumed 75% Urine Color Dark Yellow Straight Dark Yellow Extremities Exam Extremities exam: Present Foot pink and warm and neurovascular intact Additional comments: dressing recently changed but dry OBJ DATA Labs CBC & Chem 7: 07/12/21 18:26 07/12/21 18:26 Labs: Abnormal Lab Results 07/12/21 18:26 WBC 12.4 H Neut % (Auto) 79.1 H Lymph % (Auto) 12.8 L Absolute Neutrophils 9.83 H Meds: Medications Acetaminophen (Acetaminophen 500 Mg Tablet) 1,000 mg PO Q6HP PRN; Protocol PRN Reason: Per Pain Protocol Last Admin: 07/13/21 09:04 Dose: 1,000 mg Documented by: Hydrocodone Bitart/Acetaminophen (Hydrocodone/Apap 10/325mg Tablet) 0 tab PO Q4HP PRN; Protocol PRN Reason: Per Pain Protocol Last Admin: 07/13/21 16:16 Dose: 1 tab Documented by: Albuterol Sulfate (Albuterol Sulfate 200 Puff Inhaler) 1 - 2 puff IH Q4HP PRN PRN Reason: Shortness Of Breath Bisacodyl (Bisacodyl 10 Mg Supp.Rect) 10 mg PA Q2-3DAYS PRN PRN Reason: Constipation Docusate Sodium (Docusate Sodium 100 Mg Capsule) 100 mg PO BID [facility] Last Admin: 07/13/21 09:04 Dose: 100 mg Documented by: Enoxaparin Sodium (Enoxaparin 30 Mg/0.3 Ml Syringe) 40 mg SQ DAILY [facility] Last Admin: 07/13/21 09:59 Dose: Not Given Documented by: Furosemide (Furosemide 40 Mg Tablet) 60 mg PO PRN PRN PRN Reason: Edema Hydromorphone HCl (Hydromorphone 0.5 Mg/0.5 Ml Syringe) 0.5 mg IV Q2HP PRN; Protocol PRN Reason: Per Pain Protocol Last Admin: 07/13/21 16:37 Dose: 0.5 mg Documented by: Sodium Chloride (Sodium Chloride 0.9%) 1,000 mls @ 125 mls/hr IV .Q8H [facility] Last Admin: 07/13/21 13:39 Dose: Not Given Documented by: Ketorolac Tromethamine (Ketorolac 30 Mg/Ml Vial) 30 mg IV Q6HP PRN; Protocol PRN Reason: Per Pain Protocol Stop: 07/14/21 22:34 Last Admin: 07/13/21 16:15 Dose: 30 mg Documented by: Lamotrigine (Lamotrigine 25 Mg Tablet) 50 mg PO DAILY [facility] Last Admin: 07/13/21 09:04 Dose: 50 mg Documented by: Lidocaine (Lidocaine Patch) 1 patch TOPICAL DAILY@1000 [facility] Last Admin: 07/13/21 09:05 Dose: 1 patch Documented by: Magnesium Hydroxide (Magnesium Hydroxide 30 Ml Oral.Susp) 30 ml PO BIDP PRN PRN Reason: Constipation Methocarbamol (Methocarbamol 750 Mg Tablet) 750 mg PO Q6HP PRN PRN Reason: Muscle Spasm Last Admin: 07/13/21 14:11 Dose: 750 mg Documented by: Morphine Sulfate (Morphine 4 Mg/Ml Vial) 0 mg IV Q1HP PRN; Protocol PRN Reason: Per Pain Protocol Ondansetron HCl (Ondansetron 4 Mg/2 Ml Vial) 4 mg IV Q4HP PRN; Protocol PRN Reason: Nausea And Vomiting Ondansetron HCl (Ondansetron 4 Mg Odt Tablet) 4 mg PO Q6HP PRN PRN Reason: Nausea And Vomiting Polyethylene Glycol (Polyethylene Glycol 3350 17 Gm Packet) 17 gm PO DAILYP PRN PRN Reason: Constipation Prazosin HCl (Prazosin 1 Mg Capsule) 4 mg PO HS [facility]ALIA Quetiapine Fumarate (Quetiapine 25 Mg Tablet) 25 mg PO QHS [facility]AL[facility] Senna (Sennosides 1 Tablet) 2 tab PO HS [facility]ALIA Sodium Biphosphate/Sodium Phosphate (Fleets Adult Enema) 1 dose PA Q3-4DAYS PRN PRN Reason: Constipation Sodium Chloride (0.9 % Sodium Chloride 10 Ml Syringe) [facility] Last Admin: 07/13/21 08:56 Dose: Not Given Documented by: Temazepam (Temazepam 15 Mg Capsule) 15 mg PO HSP PRN PRN Reason: Insomnia Throat Lozenges (Benzocaine/Menthol 1 Lozenge) 1 lozenge PO PRN PRN PRN Reason: Sore Throat Trazodone HCl (Trazodone Hcl 100 Mg Tablet) 200 mg PO HS NATALIA A/P Narrative A/P Narrative: POD#1 s/p retrograde IMR L distal femur fx-ortho stable -PT -pain control -d/c plan to SNF tomorrow Time Spent With Patient Time: Total time spent is greater than 50% in coordination of care (as documented) at patient's floor/unit and/or counseling patient:
--- NOTE | 2021-07-13 20:00 | EKG ---
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 Measurements Intervals [place] Rate: 78 P: -5 NH: 169 QRS: 14 QRSD: 86 T: 8 QT: 359 QTc: 409 Interpretive Statements Sinus rhythm and ectopic atrial rythym Low voltage, precordial leads Electronically Signed On 07-13-2021 20:00:14 PST by Lilibeth Edwards D.O. /store/[email or web address]/[id number]
[2021-07-13] MEDS: QUEtiapine 25 MG TABLET PO SCH (20:13)
[2021-07-13] MEDS: traZODone HCL 100 MG TABLET PO SCH (20:14)
[2021-07-13] MEDS: PRAZOSIN 1 MG CAPSULE PO SCH (20:14)
[2021-07-13] MEDS: SENNOSIDES 1 TABLET PO SCH (20:15)
[2021-07-14] MEDS: HYDROcodone/APAP 10/325MG TABLET PO PRN ×5 (03:50→19:28)
[2021-07-14] MEDS: METHOCARBAMOL 750 MG TABLET PO PRN ×2 (03:51→18:00)
[2021-07-14] MEDS: HYDROmorphone 0.5 MG/0.5 ML SYRINGE IV PRN (07:24)
[2021-07-14] MEDS: lamoTRIgine 25 MG TABLET PO SCH (10:16)
[2021-07-14] MEDS: DOCUSATE SODIUM 100 MG CAPSULE PO SCH ×2 (10:16→21:49)
[2021-07-14] MEDS: LIDOCAINE PATCH TOPICAL SCH (10:16)
[2021-07-14] MEDS: 0.9 % SODIUM CHLORIDE 10 ML SYRINGE IV SCH ×2 (10:16→21:34)
[2021-07-14] MEDS: morphine 4 MG/ML VIAL IV PRN ×2 (10:25→12:54)
[2021-07-14] MEDS: MUPIROCIN OINT 2% 22GM NARES SCH ×2 (10:25→21:47)
[2021-07-14] MEDS: ENOXAPARIN 40 MG/0.4 ML SYRINGE SQ SCH (10:33)
[2021-07-14] MEDS: ENOXAPARIN 30 MG/0.3 ML SYRINGE SQ SCH (11:07)
--- NOTE | 2021-07-14 11:53 | History and Physical Report ---
DATE OF ADMISSION: 07/13/2021 DATE OF SERVICE: 07/12/2021 CHIEF COMPLAINT: Left leg pain. HISTORY: This is a 56-year-old female who was outside chasing a child when her foot got stuck in a divot, causing her to fall and twist and she felt a pop and severe pain in the leg and was unable to move or bend the leg. She denies any other injuries. She was taken to the emergency department and x-rays were taken which showed a severely-comminuted distal femur fracture. Pain is worse with movement, better with immobility. She denies numbness or tingling distally. PAST MEDICAL HISTORY: Edema, asthma, hypertension, chronic back pain, obesity, anxiety, and depression. PAST SURGICAL HISTORY: Positive for hernia repair and hysterectomy. MEDICATIONS: 1. Furosemide. 2. Albuterol. 3. Lamotrigine. 4. Prazosin. 5. Quetiapine. 6. Trazodone. 7. Naproxen. ALLERGIES: 1. IODINATED CONTRAST DYE. 2. PENICILLIN. SOCIAL HISTORY: She does use nicotine. She drinks a few times a month and does use marijuana. FAMILY HISTORY: Positive for mother with colon cancer. PHYSICAL EXAMINATION: VITALS ON ADMISSION: Temperature 36.6, pulse 100, respirations 14, blood pressure 146/100, 96% on room air. GENERAL: She appears morbidly obese, in no acute distress. Mood and affect are appropriate. HEART: Regular. LUNGS: Clear. EXTREMITIES: Bilateral upper extremities and right lower extremity show no obvious evidence of injury and are normal to inspection, range of motion, stability, and strength. Left lower extremity reveals some deformity on inspection, has very limited range of motion secondary to pain. She is able to flex and extend her toes with intact sensation to light touch and pedal pulse is palpable. Compartment is soft. IMAGING: X-rays viewed show a severely-comminuted, supracondylar femur fracture. CT scan viewed does show an intercondylar extension. IMPRESSION: Left closed intraarticular supracondylar femur fracture in a 56-year-old morbidly obese female with a body mass index of 53. PLAN: I discussed with her I would recommend proceeding with open treatment and retrograde intramedullary allison fixation of the left intraarticular supracondylar femur fracture. I discussed the risks of surgery which include, but are not limited to bleeding; infection; injury to nerves, blood vessels, and other surrounding structures; anesthetic risks; nonunion or malunion of the fracture, this being increased given her nicotine use; failure of hardware fixation, being increased given her severe morbid obesity; possibility of needing further surgery. She understands these risks and wishes to proceed. BJB:[email or web address] Job ID: [id number] Doc ID: [id number] Mickey Albright MD
[2021-07-14] MEDS: ALBUTEROL SULFATE 200 PUFF INHALER IH PRN ×2 (16:43→22:33)
[2021-07-14] MEDS: KETOROLAC 30 MG/ML VIAL IV PRN (18:00)
[2021-07-14] MEDS: traZODone HCL 100 MG TABLET PO SCH (21:47)
[2021-07-14] MEDS: PRAZOSIN 1 MG CAPSULE PO SCH (21:47)
[2021-07-14] MEDS: QUEtiapine 25 MG TABLET PO SCH (21:48)
[2021-07-14] MEDS: SENNOSIDES 1 TABLET PO SCH (21:49)
[2021-07-15] MEDS: HYDROcodone/APAP 10/325MG TABLET PO PRN ×6 (02:25→23:40)
--- NOTE | 2021-07-15 07:38 | Orthopedic Progress Note ---
SUBJECTIVE Subjective Patient information: Note initiated : 07/15/21 at 7:35 am Service Date, if different from initiated Date: [] Patient: Gentry Cornejo 56 y/o F admitted on 07/13/21 for knee injury. Chief Complaint: [] Principal diagnosis: s/p IMR of Left distal femur fracture Interval history: pain tolerable, Constitutional Vitals: Vital Signs Temp Pulse Resp BP Pulse Ox 98.1 F 84 12 103/62 90 07/15/21 04:01 07/15/21 04:01 07/15/21 04:01 07/15/21 04:01 07/15/21 04:01 Period Temp Pulse Resp BP Sys/Celaya Pulse Ox Last 24 Hr 97.5 F-98.1 F 70-94 12-18 103-124/59-85 90-95 Intake and Output 07/14/21 07/15/21 07/15/21 21:59 05:59 13:59 Intake Total 1425 600 Output Total 1880 900 Balance -455 -300 Weight 328 lb 12.8 oz Intake & Output: Intake & Output 07/14/21 07/15/21 07/15/21 21:59 05:59 13:59 Intake Total 1425 600 Output Total 1880 900 Balance -455 -300 Weight 328 lb 12.8 oz Intake: Oral 1425 600 Output: Void Amount 1880 900 Other: Meal Lunch Percent of Meal Consumed 100% Urine Color Straw Urine Odor Normal General appearance: morbidly obese and no acute distress Neurological Exam Neurological exam: Present alert and oriented X3 OBJ DATA Labs CBC & Chem 7: 07/12/21 18:26 07/12/21 18:26 Labs: Abnormal Lab Results 07/12/21 18:26 WBC 12.4 H Neut % (Auto) 79.1 H Lymph % (Auto) 12.8 L Absolute Neutrophils 9.83 H Meds: Medications Acetaminophen (Acetaminophen 500 Mg Tablet) 1,000 mg PO Q6HP PRN; Protocol PRN Reason: Per Pain Protocol Last Admin: 07/13/21 09:04 Dose: 1,000 mg Documented by: Hydrocodone Bitart/Acetaminophen (Hydrocodone/Apap 10/325mg Tablet) 0 tab PO Q4HP PRN; Protocol PRN Reason: Per Pain Protocol Last Admin: 07/15/21 06:54 Dose: 2 tab Documented by: Albuterol Sulfate (Albuterol Sulfate 200 Puff Inhaler) 1 - 2 puff IH Q4HP PRN PRN Reason: Shortness Of Breath Last Admin: 07/14/21 22:33 Dose: 2 puff Documented by: Bisacodyl (Bisacodyl 10 Mg Supp.Rect) 10 mg NH Q2-3DAYS PRN PRN Reason: Constipation Docusate Sodium (Docusate Sodium 100 Mg Capsule) 100 mg PO BID [facility] Last Admin: 07/14/21 21:49 Dose: Not Given Documented by: Enoxaparin Sodium (Enoxaparin 40 Mg/0.4 Ml Syringe) 40 mg SQ DAILY [facility] Last Admin: 07/14/21 10:33 Dose: 40 mg Documented by: Furosemide (Furosemide 40 Mg Tablet) 60 mg PO PRN PRN PRN Reason: Edema Last Admin: 07/14/21 10:16 Dose: 60 mg Documented by: Lamotrigine (Lamotrigine 25 Mg Tablet) 50 mg PO DAILY [facility] Last Admin: 07/14/21 10:16 Dose: 50 mg Documented by: Lidocaine (Lidocaine Patch) 1 patch TOPICAL DAILY@1000 [facility] Last Admin: 07/14/21 10:16 Dose: 1 patch Documented by: Magnesium Hydroxide (Magnesium Hydroxide 30 Ml Oral.Susp) 30 ml PO BIDP PRN PRN Reason: Constipation Methocarbamol (Methocarbamol 750 Mg Tablet) 750 mg PO Q6HP PRN PRN Reason: Muscle Spasm Last Admin: 07/14/21 18:00 Dose: 750 mg Documented by: Morphine Sulfate (Morphine 4 Mg/Ml Vial) 0 mg IV Q1HP PRN; Protocol PRN Reason: Per Pain Protocol Last Admin: 07/14/21 12:54 Dose: 6 mg Documented by: Mupirocin (Mupirocin Oint 2% 22gm) 1 dose NARES BID [facility] Last Admin: 07/14/21 21:47 Dose: 1 dose Documented by: Ondansetron HCl (Ondansetron 4 Mg Odt Tablet) 4 mg PO Q6HP PRN PRN Reason: Nausea And Vomiting Polyethylene Glycol (Polyethylene Glycol 3350 17 Gm Packet) 17 gm PO DAILYP PRN PRN Reason: Constipation Prazosin HCl (Prazosin 1 Mg Capsule) 4 mg PO HS [facility] Last Admin: 07/14/21 21:47 Dose: 4 mg Documented by: Quetiapine Fumarate ([facility] 25 Mg Tablet) [facility] Last Admin: 07/14/21 21:48 Dose: 25 mg Documented by: Senna (Sennosides 1 Tablet) 2 tab PO [facility] Last Admin: 07/14/21 21:49 Dose: Not Given Documented by: Sodium Biphosphate/Sodium Phosphate (Fleets Adult Enema) 1 dose [place] Q3-4DAYS PRN PRN Reason: Constipation Sodium Chloride (0.9 % Sodium Chloride 10 Ml Syringe) [facility] Last Admin: 07/14/21 21:34 Dose: 10 ml Documented by: Temazepam (Temazepam 15 Mg Capsule) 15 mg PO HSP PRN PRN Reason: Insomnia Throat Lozenges (Benzocaine/Menthol 1 Lozenge) 1 lozenge PO PRN PRN PRN Reason: Sore Throat Trazodone HCl (Trazodone Hcl 100 Mg Tablet) 200 mg PO [facility] Last Admin: 07/14/21 21:47 Dose: 200 mg Documented by: A/P Narrative A/P Narrative: POD#3 s/p Retrograde IMR of comminuted supracondylar femur fracture-ortho stable -OK to d/c to SNF today Time Spent With Patient Time: Total time spent is greater than 50% in coordination of care (as documented) at patient's floor/unit and/or counseling patient:
[2021-07-15] MEDS: lamoTRIgine 25 MG TABLET PO SCH (08:11)
[2021-07-15] MEDS: DOCUSATE SODIUM 100 MG CAPSULE PO SCH ×2 (08:15→22:13)
[2021-07-15] MEDS: MUPIROCIN OINT 2% 22GM NARES SCH ×2 (08:15→22:16)
[2021-07-15] MEDS: 0.9 % SODIUM CHLORIDE 10 ML SYRINGE IV SCH ×2 (08:15→20:37)
[2021-07-15] MEDS: ENOXAPARIN 40 MG/0.4 ML SYRINGE SQ SCH (08:15)
[2021-07-15] MEDS: LIDOCAINE PATCH TOPICAL SCH (09:58)
[2021-07-15] MEDS: METHOCARBAMOL 750 MG TABLET PO PRN ×2 (16:55→22:12)
[2021-07-15] MEDS: morphine 4 MG/ML VIAL IV PRN ×2 (18:02→23:41)
[2021-07-15] MEDS: traZODone HCL 100 MG TABLET PO SCH (22:12)
[2021-07-15] MEDS: PRAZOSIN 1 MG CAPSULE PO SCH (22:12)
[2021-07-15] MEDS: QUEtiapine 25 MG TABLET PO SCH (22:13)
[2021-07-15] MEDS: SENNOSIDES 1 TABLET PO SCH (22:14)
[2021-07-16] MEDS: HYDROcodone/APAP 10/325MG TABLET PO PRN ×2 (03:44→08:18)
[2021-07-16] MEDS: METHOCARBAMOL 750 MG TABLET PO PRN (04:57)
--- NOTE | 2021-07-16 07:18 | General Surgery Progress Note ---
Surgery - Auxiliary Note Subjective Patient Information: Note initiated : 07/16/21 at 7:16 am Service Date, if different from initiated Date: [] Patient: Gentry Cornejo 56 y/o F admitted on 07/13/21 for knee injury. Chief Complaint: No c/o. Pt ready to get well and start PT. bandages c/d/i nvi-distal A/P: 4 days s/p L distal femur fx with retrograde IM nail-stable pt discharging to SNF when bed available. f/u ~2 weeks
[2021-07-16] MEDS: ENOXAPARIN 40 MG/0.4 ML SYRINGE SQ SCH (08:18)
[2021-07-16] MEDS: lamoTRIgine 25 MG TABLET PO SCH (08:18)
[2021-07-16] MEDS: DOCUSATE SODIUM 100 MG CAPSULE PO SCH (08:18)
[2021-07-16] MEDS: MUPIROCIN OINT 2% 22GM NARES SCH (08:18)
[2021-07-16] MEDS: 0.9 % SODIUM CHLORIDE 10 ML SYRINGE IV SCH (08:18)
[2021-07-16] MEDS: morphine 4 MG/ML VIAL IV PRN (08:40)
[2021-07-16] MEDS: ACETAMINOPHEN 500 MG TABLET PO PRN (08:44)
[2021-07-16] MEDS: LIDOCAINE PATCH TOPICAL SCH (09:40)
== END 2021-07-16 10:00 | DRG 481 ==
LOC: ED 16:35 → SUR 20:10 → MEDSUR 07-13 00:57
PROVIDERS: ADMIT Orthopaedic Surgery; ATTEND Orthopaedic Surgery

== ENCOUNTER 2021-11-04 08:09 | Inpatient (IN) ==
[2021-11-04] MEDS ORDERED: DEXAMETHASONE 10 MG/ML VIAL IV ONE (08:26)
[2021-11-04] MEDS ORDERED: IPRATROPIUM/ALBUTEROL 3 ML AMPUL.NEB NEB ONE (08:27)
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
[2021-11-04 09:00] LABS: POC Calcium, Ionized 0.99 (1.16-1.32); POC Creatinine 1.5 (0.6-1.2); POC Potassium 5.3 (3.3-5.1)
--- NOTE | 2021-11-04 09:20 | XRay Report ---
HISTORY: Short of breath and chest pain FINDINGS: There is a large consolidating infiltrate with air bronchograms in the left lower lobe and a moderate-sized alveolar infiltrate inferiorly medially in the right lower lobe. These are new finding since prior x-ray done on 03/17/20. The upper lung joe are clear. The heart is partially obscured but may be mildly enlarged. Pulmonary vessels, best seen in the lung apices are clear. IMPRESSION: Bibasilar consolidating infiltrates. This is more likely due to pneumonia/atelectasis rather than pulmonary edema. Interpreted and Authenticated by: Stepan Ernst 11/04/21
[2021-11-04 09:56] LABS: Basophils # (Auto) 0.12 K/mcL (0.00-0.30); Basophils % (Auto) 0.9 % (0.0-2.0); Eosinophils # (Auto) 0 K/mcL (0.00-0.70); Eosinophils % (Auto) 0 % (0.0-7.0); Hematocrit 41.5 % (34.1-44.9); Hemoglobin 13.1 g/dL (11.2-15.7); Lymphocytes % (Auto) 5.1 % (15.5-49.0); Mean Cell Volume 81.2 fL (80.0-100.0); Mean Corpuscular HGB Conc 31.6 g/dL (31.0-36.0); Monocytes # (Auto) 1.23 K/mcL (0.10-0.90); Neutrophils % (Auto) 82.1 % (38.0-78.0); Platelet Count 299 K/mcL (140-440); RBC 5.11 M/mcL (3.59-5.38); Red Cell Distribution Width 14.6 % (11.5-14.5); WBC 13.6 K/mcL (4.5-11.0)
--- NOTE | 2021-11-04 12:57 | EKG ---
[facility] Test Date: 2021-11-04 Pat Name: Gentry Cornejo Department: ED Room: Gender: Female [employer] Car[employer]: LR : 1965 Requested By: Aki Nielsen Order Number: [id number] Reading MD: Peter Gonzalez Measurements Intervals [place] Rate: 127 P: 57 NV: 144 QRS: 17 QRSD: 92 T: -14 QT: 285 QTc: 415 Interpretive Statements Sinus tachycardia Probable left atrial enlargement Borderline repolarization abnormality Baseline wander in lead(s) II,III,aVL,aVF Electronically Signed On 11-04-2021 12:56:34 PDT by Peter Gonzalez /store/M0/[id number]/[id number]
[2021-11-04] MEDS ORDERED: VANCOMYCIN 1,500 MG in 0.9 % SODIUM CHLORIDE 500 ML IV ONE (13:10)
[2021-11-04] MEDS ORDERED: AZTREONAM 1 GM VIAL IV ONE (13:10)
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
[2021-11-04] MEDS ORDERED: LORazepam 2 MG/ML VIAL IV ONE (14:05)
[2021-11-04] MEDS ORDERED: 0.9 % SODIUM CHLORIDE 10 ML SYRINGE IV SCH (16:23)
[2021-11-04] MEDS ORDERED: VANCOMYCIN PER PHARMACY IV SCH (16:23)
[2021-11-04] MEDS ORDERED: DEXTROSE 31 GM ORAL.SUSP PO PRN (16:23)
[2021-11-04] MEDS ORDERED: FEXOFENADINE 180 MG TABLET PO PRN (16:23)
[2021-11-04] MEDS ORDERED: DEXTROSE 50% 50 ML VIAL IV PRN (16:23)
[2021-11-04] MEDS ORDERED: HYDROcodone/APAP 10/325MG TABLET PO PRN (16:23)
[2021-11-04] MEDS ORDERED: ACETAMINOPHEN 325 MG TABLET PO PRN (16:23)
[2021-11-04] MEDS ORDERED: METHOCARBAMOL 750 MG TABLET PO PRN (16:23)
[2021-11-04] MEDS ORDERED: IPRATROPIUM/ALBUTEROL 3 ML AMPUL.NEB NEB PRN (16:23)
[2021-11-04] MEDS ORDERED: ONDANSETRON 4 MG/2 ML VIAL IV PRN (16:23)
[2021-11-04] MEDS ORDERED: 0.9 % SODIUM CHLORIDE 1,000 ML IV SCH (16:23)
[2021-11-04] MEDS ORDERED: ALBUTEROL SULFATE 200 PUFF INHALER INH PRN (16:23)
[2021-11-04] MEDS ORDERED: guaiFENesin/DEXTROMETHORPHAN ORAL SOL PO PRN (16:23)
[2021-11-04] MEDS ORDERED: LORazepam 2 MG/ML VIAL IV PRN (16:46)
[2021-11-04] MEDS ORDERED: INSULIN LISPRO 1 UNIT/0.01 ML UNIT SQ SCH (17:00)
[2021-11-04] MEDS ORDERED: REMDESIVIR 200 MG in 0.9 % SODIUM CHLORIDE 250 ML IV SCH (17:00)
[2021-11-04] MEDS ORDERED: MEROPENEM 1 GM in 0.9 % SODIUM CHLORIDE 100 ML IV SCH (17:00)
[2021-11-04] MEDS ORDERED: MEROPENEM 0.5 GM in 0.9 % SODIUM CHLORIDE 50 ML IV SCH (17:00)
[2021-11-04] MEDS ORDERED: ACETAMINOPHEN 650 MG/65 ML BAG IV PRN (17:41)
[2021-11-04] MEDS ORDERED: METOPROLOL TARTRATE 5 MG/5 ML VIAL IV PRN (17:52)
[2021-11-04 18:02] LABS: Blood Urea Nitrogen 57 mg/dL (6-20); Calcium 9.7 mg/dL (8.6-10.4); Carbon Dioxide 33 mmol/L (22-30); Chloride 86 mmol/L (96-108); Glomerular Filtration Rate 63; Glucose 314 mg/dL (70-105)
[2021-11-04 18:06] LABS: Estimated Average Glucose(eAG) 212 mg/dL
[2021-11-04] MEDS ORDERED: MAGNESIUM HYDROXIDE 30 ML ORAL.SUSP PO PRN (20:26)
[2021-11-04] MEDS ORDERED: FLEETS ADULT ENEMA PR PRN (20:26)
[2021-11-04] MEDS ORDERED: DILTIAZEM 25 MG/5 ML VIAL IV ONE (20:28)
[2021-11-04] MEDS ORDERED: LEVALBUTEROL 1.25 MG/3 ML AMPUL.NEB NEB PRN (20:28)
[2021-11-04] MEDS ORDERED: POLYETHYLENE GLYCOL 3350 17 GM PACKET PO PRN (20:45)
[2021-11-04] MEDS ORDERED: FUROSEMIDE 20 MG TABLET PO SCH (21:00)
[2021-11-04] MEDS ORDERED: DOCUSATE SODIUM 100 MG CAPSULE PO SCH (21:00)
[2021-11-04] MEDS ORDERED: PRAZOSIN 1 MG CAPSULE PO SCH (21:00)
[2021-11-04] MEDS ORDERED: CETIRIZINE 10 MG TABLET PO SCH (21:00)
[2021-11-04] MEDS ORDERED: HEPARIN 5,000 UNIT/ML VIAL SQ SCH (21:00)
[2021-11-04] MEDS ORDERED: FLUTICASONE/SALMETEROL 50/100 INHALER #14 INH SCH (21:00)
[2021-11-04] MEDS ORDERED: MELATONIN 3 MG TABLET PO SCH (21:00)
[2021-11-04] MEDS ORDERED: hydrOXYzine 25 MG TABLET PO SCH (21:00)
[2021-11-04] MEDS ORDERED: traZODone HCL 100 MG TABLET PO SCH (21:00)
[2021-11-04] MEDS ORDERED: QUEtiapine 25 MG TABLET PO SCH (21:00)
[2021-11-04] MEDS ORDERED: CALCIUM CHLORIDE 1,000 MG/10 ML SYRINGE IV ONE (21:27)
--- NOTE | 2021-11-04 21:43 | Death Note ---
Discharge Sum: Prov Provider Patient information: Note initiated : 11/04/21 at 9:41 pm Service Date, if different from initiated Date: [] Patient: Gentry Cornejo 56 y/o F admitted on 11/04/21 for SOB . Chief Complaint: [] Primary care physician: Nora Joiner Attending physician on admission: Raf Hood Consults: 11/04/21 Consult to Physician [CONS] Stat Comment: Consulting Provider: Raf Hood Reason For Exam: Physician to Consult Discharge Sum: Diag Contributing Factors (1) Pneumonia due to COVID-19 virus: (2) Healthcare associated bacterial pneumonia: (3) COPD with asthma: (4) Hyponatremia: (5) Hyperkalemia: (6) Hyperglycemia: (7) Super obesity: (8) Bipolar disorder: (9) Stage 1 acute kidney injury: Discharge Sum: Summary Date and Time Date of admission: 11/04/21 16:13 Date of : 11/04/21 Time of : 21:24 Summary Details: Patient developed oxygen desaturations and sinus bradycardia so CODE BLUE was called. Patient was intubated and CPR was attempted for 30 minutes but no return of spontaneous circulation's was ever achieved. Family at bedside and agree to stop further CPR efforts beyond that point. Time of 2123. Additional Data Confirmation of as documented by pronouncing clinician: no pulse, no respirations, no heart sounds and pupils fixed and dilated Family: at bedside Attending/PCP notified?: Yes Attending physician: Raf Hood MD Was code activated?: Yes Autopsy requested?: No bench examiner notified?: No Organ bank notified?: No Advance directives?: No Hospice patient?: No
[2021-11-05] MEDS ORDERED: EPINEPHrine 1 MG/10 ML (1:10,000) SYRINGE IV ONE (01:14)
[2021-11-05] MEDS ORDERED: ETOMIDATE 20 MG/10 ML VIAL IV ONE (01:14)
[2021-11-05] MEDS ORDERED: ROCURONIUM 10 MG/ML ML IV ONE (01:14)
[2021-11-05] MEDS ORDERED: CALCIUM CHLORIDE 1,000 MG/10 ML SYRINGE IV ONE (01:14)
[2021-11-05] MEDS ORDERED: SODIUM BICARBONATE ADULT 50 MEQ/50 ML SYRINGE IV ONE (01:14)
[2021-11-05] MEDS ORDERED: PANTOPRAZOLE 40 MG TABLET PO SCH (07:30)
[2021-11-05] MEDS ORDERED: PANTOPRAZOLE 40 MG VIAL IV SCH (07:30)
[2021-11-05] MEDS ORDERED: FUROSEMIDE 40 MG TABLET PO SCH (09:00)
[2021-11-05] MEDS ORDERED: MONTELUKAST 10 MG TABLET PO SCH (09:00)
[2021-11-05] MEDS ORDERED: VANCOMYCIN 1,500 MG in 0.9 % SODIUM CHLORIDE 500 ML IV SCH (09:00)
[2021-11-05] MEDS ORDERED: FLUTICASONE PROPIONATE SPRAY.NAS NS SCH (09:00)
[2021-11-05] MEDS ORDERED: SENNOSIDES 1 TABLET PO SCH (09:00)
[2021-11-05] MEDS ORDERED: MELOXICAM 7.5 MG TABLET PO SCH (09:00)
[2021-11-05] MEDS ORDERED: METOLAZONE 2.5 MG TABLET PO SCH (09:00)
[2021-11-05] MEDS ORDERED: [UNRECOGNIZED DRUG - OTHER] TOPICAL SCH (09:00)
[2021-11-05] MEDS ORDERED: DEXAMETHASONE 10 MG/ML VIAL IV SCH (09:00)
[2021-11-05] MEDS ORDERED: lamoTRIgine 25 MG TABLET PO SCH (09:00)
[2021-11-05] MEDS ORDERED: REMDESIVIR 100 MG in 0.9 % SODIUM CHLORIDE 250 ML IV SCH (13:00)
--- NOTE | 2021-11-05 18:28 | EKG ---
[facility] Test Date: 2021-11-04 Pat Name: Gentry Cornejo Department: ICU Room: 120A Gender: Female Qa Tech: : 1965 Requested By: Raf Hood Order Number: [id number] Reading MD: Peter Gonzalez Measurements Intervals [place] Rate: 128 P: 62 GA: 165 QRS: 45 QRSD: 87 T: -2 QT: 262 QTc: 383 Interpretive Statements Sinus tachycardia Ventricular premature complex Low voltage, precordial leads Electronically Signed On 11-05-2021 18:28:25 PDT by Peter Gonzalez /[facility] [place]/[id number]
== END 2021-11-05 01:15 | disposition other institution (70) | DRG 177 ==
LOC: ED 08:09 → ICU 16:13
PROVIDERS: ADMIT Internal Medicine; ATTEND Internal Medicine